=== PATIENT | male | born 1955 | race Caucasian/White ===

== ENCOUNTER 2016-04-29 17:28 | Emergency (ER) | payer MEDICAID ==
--- NOTE | 2016-04-29 18:15 | ER Document Report ---
ED Medical Screen (RME) - General Stated Complaint: SHORTNESS OF BREATH Notes: Patient is a 61-year-old male presents emergency department after being referred by his physician's office for a 12 pound weight gain over the past two days, shortness of breath and orthopnea and had to go sleep upright on the couch admits to worsening edema in his LLE, cough has been urinating more frequently today since he self increased his furosemide PMH: CHF, HTN, HLD, DM, stage 3 kidney disease 2015: RLE amputee from ankle fracture that became septic TRAVEL OUTSIDE OF THE [place] IN LAST 30 DAYS: No - Related Data Allergies/Adverse Reactions: meperidine HCl [From Demerol] Allergy (Unknown, Verified 03/03/16 14:39) n/v propoxyphene napsylate [From Darvocet-N 100] Allergy (Unknown, Verified 14:39) exenatide [From Byetta] Allergy (Verified 03/03/16 14:39) morphine [Morphine] Allergy (Verified 03/04/16 05:39) n/v Past Medical History - Past Medical History Cardiac Medical History: Reports: Hx Atrial Fibrillation, Hx Congestive Heart Failure, Hx Coronary Artery Disease, Hx Heart Attack, Hx Hypercholesterolemia, Hx Hypertension, Hx Peripheral Vascular Disease Pulmonary Medical History: Reports: Hx Respiratory Failure Denies: Hx Tuberculosis Neurological Medical History: Reports: Hx Cerebrovascular Accident Endocrine Medical History: Reports: 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 Denies: Hx Tonsillectomy - Immunizations Hx Diphtheria, Pertussis, Tetanus Vaccination: Yes
[2016-04-29 18:31] LABS: ABSOLUTE BASOPHILS # (AUTO) 0.1 10^3/uL (0.0-0.2); ABSOLUTE EOSINOPHILS # (AUTO) 0.4 10^3/uL (0.0-0.6); ABSOLUTE LYMPHOCYTES (AUTO) 1.6 10^3/uL (0.5-4.7); ABSOLUTE MONOCYTES (AUTO) 0.6 10^3/uL (0.1-1.4); ABSOLUTE NEUT (AUTO) 4.3 10^3/uL (1.7-8.2); BASOPHILS % (AUTO) 0.9 % (0-2); EOSINOPHILS % (AUTO) 6.4 % (0-6); HEMATOCRIT 41.7 % (37.9-51.0); HEMOGLOBIN 13.1 g/dL (13.5-17.0); HGB HCT DIFFERENCE -2.4; LYMPHOCYTES % (AUTO) 22.7 % (13-45); MEAN CORPUSCULAR HEMOGLOBIN 25.6 pg (27.0-33.4); MEAN CORPUSCULAR HGB CONC 31.5 g/dL (32.0-36.0); MEAN CORPUSCULAR VOLUME 81 fl (80-97); MONOCYTES % (AUTO) 8.1 % (3-13); RED BLOOD COUNT 5.14 10^6/uL (4.35-5.55); RED CELL DISTRIBUTION WIDTH 15.7 % (11.5-14.0); SEGMENTED NEUTROPHILS % (AUTO) 61.9 % (42-78); WHITE BLOOD COUNT 6.9 10^3/uL (4.0-10.5)
[2016-04-29 18:49] LABS: ALANINE AMINOTRANSFERASE 38 U/L (21-72); ALBUMIN 3.8 g/dL (3.5-5.0); ALKALINE PHOSPHATASE 123 U/L (38-126); ANION GAP 12 (5-19); ASPARTATE AMINO TRANSFERASE 35 U/L (17-59); BILIRUBIN,TOTAL 0.4 mg/dL (0.2-1.3); BLOOD UREA NITROGEN 29 mg/dL (7-20); CALCIUM 9.1 mg/dL (8.4-10.2); CARBON DIOXIDE 29 mmol/L (22-30); CHLORIDE 106 mmol/L (98-107); CREATINE KINASE 271 U/L (55-170); CREATININE RESULT 1.44 mg/dL (0.52-1.25); GLUCOSE 154 mg/dL (75-110); POTASSIUM 4.6 mmol/L (3.6-5.0); SODIUM 147.1 mmol/L (137-145); TOTAL PROTEIN 6.5 g/dL (6.3-8.2)
[2016-04-29 19:01] LABS: CREATINE KINASE MB 3.96 ng/mL (<4.55)
[2016-04-29 19:12] LABS: TROPONIN I 0.06 ng/mL
[2016-04-29] MEDS ORDERED: IPRATROPIUM/ALBUTEROL 0.5-2.5 MG/3 ML AMPUL NEB ONE (20:18)
--- NOTE | 2016-04-29 20:20 | ER Document Report ---
ED Respiratory Problem - General Chief Complaint: Shortness Of Breath Stated Complaint: SHORTNESS OF BREATH Time seen by provider: 20:15 Notes: Patient is a 61-year-old male that comes emergency department with chief complaint of shortness of breath, worsening since yesterday, he states that he has a cough with white sputum production, denies any chills, he states that he has congestive heart failure and has gained about 12 pounds in the past 4 days, states that he started increasing his Lasix yesterday, states he has difficulty lying flat. Patient states that he has episodes during the day where he feels like he is wheezing and has difficulty breathing, states this resolved shortly after he feels fine for a while before it returns. Patient denies any chest pain. Patient is a former smoker, denies COPD or asthma. Patient has multiple comorbidities including coronary artery disease, atrial fibrillation, insulin dependent diabetes, chronic kidney disease. TRAVEL OUTSIDE OF THE [place] IN LAST 30 DAYS: No - Related Data Allergies/Adverse Reactions: meperidine HCl [From Demerol] Allergy (Unknown, Verified 04/29/16 18:10) n/v propoxyphene napsylate [From Darvocet-N 100] Allergy (Unknown, Verified 18:10) exenatide [From Byetta] Allergy (Verified 04/29/16 18:10) morphine [Morphine] Allergy (Verified 04/29/16 18:10) n/v Home Medications: Current Home Medications Apixaban [Eliquis 2.5 mg Tablet] 1 tab PO BID 04/29/16 [History] Carvedilol [Coreg 6.25 mg Tablet] 1 tab PO Q12 04/29/16 [History] Clopidogrel Bisulfate [Clopidogrel] 1 tab PO DAILY 04/29/16 [History] Furosemide [Lasix 20 mg Tablet] 2 tab PO QAM 04/29/16 [History] Insulin Glargine,Hum.rec.anlog [Lantus] 40 unit SQ QPM 04/29/16 [History] Potassium Chloride 1 tab PO DAILY 04/29/16 [History] Past Medical History - General Information source: Patient - Social History Smoking Status: Former Smoker Chew tobacco use (# tins/day): No Frequency of alcohol use: None Drug Abuse: None Lives with: Alone Family History: CAD, Other - Patient did not know his father and does not know his mother's history either. 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 Denies: Hx Peritoneal Dialysis GI Medical History: Reports: Hx Gastroesophageal Reflux Disease Musculoskeltal Medical History: Reports Hx Arthritis Psychiatric Medical History: Reports: Hx Depression Past Surgical History: Reports: Hx Cardiac Catheterization, Hx Cardiac Surgery - quad bypass, Hx Cholecystectomy, Hx Coronary Artery Bypass Graft - 4 vessel, Hx Coronary Stent, Hx Orthopedic Surgery - R shoulder; R AKA; L elbow. Denies: Hx Tonsillectomy - Immunizations Hx Diphtheria, Pertussis, Tetanus Vaccination: Yes Hx Pneumococcal Vaccination: 12/17/10 Review of Systems - Review of Systems Constitutional: No symptoms reported EENT: No symptoms reported Cardiovascular: No symptoms reported Respiratory: See HPI Gastrointestinal: No symptoms reported Genitourinary: No symptoms reported Male Genitourinary: No symptoms reported Musculoskeletal: No symptoms reported Skin: No symptoms reported Hematologic/Lymphatic: No symptoms reported Neurological/Psychological: No symptoms reported Physical Exam - Vital signs Vitals: Temp Pulse Resp BP Pulse Ox 98.7 F 73 16 151/62 H 95 04/29/16 18:10 04/29/16 18:10 04/29/16 18:10 04/29/16 18:10 04/29/16 18:10 Interpretation: Normal - General General appearance: Appears well, Alert In distress: None - HEENT Head: Normocephalic, Atraumatic Eyes: Normal Eyelashes: Normal Pupils: PERRL Mouth/Lips: Normal Mucous membranes: Normal Pharynx: Normal. No: Blood in hypopharynx, Erythema Neck: Normal - Respiratory Respiratory status: Tachypnea - slight. No: Respiratory distress Chest status: Nontender Breath sounds: Decreased air movement, Wheezing - expiratory. No: Rales Chest palpation: Normal - Cardiovascular Rhythm: Regular. No: Irregularly irregular, Tachycardia Heart sounds: Normal auscultation, S1 appreciated, S2 appreciated Murmur: No - Abdominal Inspection: Normal Distension: No distension. No: Distended Bowel sounds: Normal Tenderness: Nontender. No: Tender Organomegaly: No organomegaly - Back Back: Normal, Nontender - Extremities General upper extremity: Normal inspection, Normal strength General lower extremity: Other - Right AKA noted, left lower extremity examination is unremarkable, no significant or pitting edema noted - Neurological Neuro grossly intact: Yes Cognition: Normal Orientation: AAOx4 An Coma Scale Eye Opening: Spontaneous [place] Coma Scale Verbal: Oriented [place] Coma Scale Motor: Obeys Commands An Coma Scale Total: 15 Speech: Normal Motor strength normal: LUE, RUE, LLE, RLE Sensory: Normal - Psychological Associated symptoms: Normal affect, Normal mood - Skin Skin Temperature: Warm Skin Moisture: Dry Skin Color: Normal Course - Re-evaluation Re-evalutation: Troponin indeterminate at 0.06, previous troponins noted to be significantly higher, denying any chest pain. EKG shows sinus rhythm at a rate of 66, there are inverted T waves in the leads V4, V5, V6, lead 1, and aVL. There are no new changes noted compared to previous EKG, all these inversions were present previously. Chest x-ray does not show vascular congestion, pneumonia, or any acute findings. BNP is lower than previous. Chronic kidney disease noted and appears to be unchanged from previously. CBC unremarkable. On examination patient has slight expiratory wheeze, no rales, very slight tachypnea, no significant peripheral edema noted. On reexamination patient has had a breathing treatment, Lasix, Solu-Medrol, patient states he feels much better. Wheezing is gone, patient's mild tachypnea resolved. Patient is not hypoxic. Patient beginning to urinate. Patient states that he feels great, states that he does not want to be admitted to the hospital and at this point he wants to go home. He does agree to follow- up closely with his primary care provider and return if he worsens in any way. Because of lack of acute abnormality compared to prior, patient's improvement, and patient being very well-appearing with unremarkable vital signs, patient discharged with these recommendations. Patient states that he will check his blood glucose frequently and adjust as necessary for the prednisone which he will be placed on because of his cough and wheezing symptoms. - Vital Signs Vital signs: Temp Pulse Resp BP Pulse Ox 98.7 F 79 22 H 137/82 H 95 04/29/16 18:10 04/29/16 19:16 04/29/16 22:00 04/29/16 22:22 04/29/16 22:00 - Laboratory Result Diagrams: 04/29/16 18:20 04/29/16 18:20 Laboratory results interpreted by me: 04/29/16 04/29/16 04/29/16 18:20 18:20 18:20 Hgb 13.1 L MCH 25.6 L MCHC 31.5 L RDW 15.7 H Eosinophils % 6.4 H Sodium 147.1 H BUN 29 H Creatinine 1.44 H Est GFR (Non-Af Amer) 50 L Glucose 154 H Creatine Kinase 271 H NT-Pro-B Natriuret Pep 1770 H Discharge - Discharge Clinical Impression: Cough, Wheezing, Shortness of breath Condition: Stable Disposition: HOME, SELF-CARE Additional Instructions: Your laboratory workup does not indicate pneumonia or fluid overload. Resume her normal Lasix dose, take prednisone as prescribed, check her sugars and in increase your insulin if needed. Follow-up with your primary care within a week. Return to the ED for any concerning or worsening symptoms - returned or worsening shortness of breath, fevers, chest pain, etc. Prescriptions: Prednisone [Deltasone 10 mg Tablet] 10 mg PO ASDIR PRN #21 tablet PRN Reason: Referrals: GERMAIN RIDDLE [Primary Care Provider] - Follow up in 3-5 days
[2016-04-29] MEDS ORDERED: FUROSEMIDE INJ/PF 40 MG/4 ML SDV IV ONE (20:27)
[2016-04-29] MEDS ORDERED: METHYLPREDNISOLONE INJ 125 MG/2 ML SDV IV ONE (20:27)
[2016-04-29 22:22] VITALS: BP 137/82
--- NOTE | 2016-04-30 14:51 | EKG REPORT ---
SEVERITY:- ABNORMAL ECG - SINUS RHYTHM NONSPECIFIC INTRAVENTRICULAR CONDUCTION DELAY ABNRM R PROG, CONSIDER ASMI OR LEAD PLACEMENT : Confirmed by: Alvaro Gottlieb 30-Apr-2016 14:50:15
== END 2016-04-29 22:22 | disposition home or self-care (01) ==
LOC: ER 17:28
DX: R05 Cough (principal); R06.2 Wheezing; R06.02 Shortness of breath; Z79.899 Other long term (current) drug therapy; Z87.891 Personal history of nicotine dependence
CPT/HCPCS: 93005; 94640; 99285; 96374; 96375; 36415; 82553; 82550; 85025; 80053; 84484; 83880; 71020; 93010; J1940; J2930; J7620

== ENCOUNTER 2016-05-29 12:58 | Emergency (ER) | payer MEDICAID ==
--- NOTE | 2016-05-29 13:15 | ER Document Report ---
ED Respiratory Problem - General Chief Complaint: Shortness Of Breath Stated Complaint: SHORTNESS OF BREATH Notes: The patient is a 61-year-old male, past medical history CHF, CAD, diabetes, presents with 1 week of increasing shortness of breath, worse when he lays down , when he wakes up and when he exerts himself. He has had this in the past and says that IV Lasix usually helps his symptoms. He denies chest pain, leg swelling, nausea, vomiting, abdominal pain, back pain, cough, fevers or chills. TRAVEL OUTSIDE OF THE [place] IN LAST 30 DAYS: No - Related Data Allergies/Adverse Reactions: meperidine HCl [From Demerol] Allergy (Unknown, Verified 04/29/16 18:10) n/v propoxyphene napsylate [From Darvocet-N 100] Allergy (Unknown, Verified 18:10) exenatide [From Byetta] Allergy (Verified 04/29/16 18:10) morphine [Morphine] Allergy (Verified 04/29/16 18:10) n/v Past Medical History - General Information source: Patient - Social History Smoking Status: Former Smoker - Quit 20 years ago Family History: CAD, Other - Patient did not know his father and does not know his mother's history either. 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 Denies: Hx Peritoneal Dialysis GI Medical History: Reports: Hx Gastroesophageal Reflux Disease Musculoskeltal Medical History: Reports Hx Arthritis Psychiatric Medical History: Reports: Hx Depression Past Surgical History: Reports: Hx Cardiac Catheterization, Hx Cardiac Surgery - quad bypass, Hx Cholecystectomy, Hx Coronary Artery Bypass Graft - 4 vessel, Hx Coronary Stent, Hx Orthopedic Surgery - R shoulder; R AKA; L elbow. Denies: Hx Tonsillectomy - Immunizations Hx Diphtheria, Pertussis, Tetanus Vaccination: Yes Hx Pneumococcal Vaccination: 12/17/10 Review of Systems - Review of Systems Notes: REVIEW OF SYSTEMS: CONSTITUTIONAL: -fevers, -chills EENT: -eye pain, -difficulty swallowing, -nasal congestion CARDIOVASCULAR: -chest pain, -syncope. RESPIRATORY: -cough, +SOB GASTROINTESTINAL: -abdominal pain, - nausea, -vomiting, -diarrhea GENITOURINARY: -dysuria, -hematuria MUSCULOSKELETAL: -back pain, -neck pain SKIN: -rash or skin lesions. HEMATOLOGIC: -easy bruising or bleeding. LYMPHATIC: -swollen, enlarged glands. NEUROLOGICAL: -altered mental status or loss of consciousness, -headache, - neurologic symptoms PSYCHIATRIC: -anxiety, -depression. ALL OTHER SYSTEMS REVIEWED AND NEGATIVE. Physical Exam - Vital signs Vitals: BP Pulse Ox 163/78 H 100 05/29/16 13:07 05/29/16 13:07 - Notes Notes: PHYSICAL EXAMINATION: GENERAL: Well-appearing, well-nourished and in no acute distress. HEAD: Atraumatic, normocephalic. EYES: Pupils equal round and reactive to light, extraocular movements intact, sclera anicteric, conjunctiva are normal. ENT: nares patent, oropharynx clear without exudates. Moist mucous membranes. NECK: Normal range of motion, supple without lymphadenopathy LUNGS: Breath sounds clear to auscultation bilaterally and equal. No wheezes rales or rhonchi. HEART: Regular rate and rhythm without murmurs ABDOMEN: Soft, nontender, normoactive bowel sounds. No guarding, no rebound. No masses appreciated. EXTREMITIES: Right AKA. Normal range of motion, no pitting or edema. No cyanosis. NEUROLOGICAL: Cranial nerves grossly intact. Normal speech, normal gait. Normal sensory, motor, and reflex exams. PSYCH: Normal mood, normal affect. SKIN: Warm, Dry, normal turgor, no rashes or lesions noted. Course - Re-evaluation Re-evalutation: Patient with hyperkalemia most likely from his daily po potassium pills, but no EKG changes. Instructed patient to not continue his potassium until he is rechecked by his primary care physician. After Lasix and DuoNeb, patient's shortness of breath has resolved. Troponin and EKG do not show any acute ischemic changes. Chest x-ray does not show any evidence of pneumonia. Symptoms atypical for PE. Spoke to patient and offered admission, but patient would like to be discharged home now his symptoms have resolved. Will discharge home with albuterol as needed and instructions to stop his potassium pills until he is seen by his primary care physician this week. Given strict return precautions and he understands. - Vital Signs Vital signs: Temp Pulse Resp BP Pulse Ox 98.7 F 17 182/133 H 98 05/29/16 13:22 05/29/16 14:01 05/29/16 14:01 05/29/16 14:01 - Laboratory Result Diagrams: 05/29/16 13:15 05/29/16 13:15 Laboratory results interpreted by me: 05/29/16 05/29/16 05/29/16 13:15 13:15 13:15 MCH 26.4 L RDW 15.5 H Eosinophils % 6.2 H Potassium 6.0 H* BUN 32 H Creatinine 1.38 H Est GFR (Non-Af Amer) 52 L Glucose 365 H NT-Pro-B Natriuret Pep 1980 H - Diagnostic Test Radiology reviewed: Image reviewed, Reports reviewed Radiology results interpreted by me: CXR: NAD - EKG Interpretation by Me EKG shows normal: Sinus rhythm, [place], Intervals, QRS Complexes When compared to previous EKG there are: No significant change Additional EKG results interpreted by me: ST depressions in lateral leads. Discharge - Discharge Clinical Impression: Dyspnea on exertion Condition: Good Disposition: HOME, SELF-CARE Additional Instructions: Your chest x-ray does not show any evidence of pneumonia. Your shortness of breath improved after IV Lasix and a DuoNeb. Your potassium was slightly elevated today, so do not take your potassium pills until you see your primary care physician this week. Return immediately to the emergency room if you have worsening shortness of breath or any other concerns. You may try albuterol as needed to help with any shortness of breath. SHORTNESS OF BREATH OR DYSPNEA: You were evaluated for shortness of breath, or dyspnea. Dyspnea has many causes, and some are more serious than others. Sometimes it's impossible to diagnose the cause of dyspnea with the tests that are available on an emergency basis. Based on our evaluation today, you do not need hospitalization now. We found no evidence of pneumonia, collapsed lung, blood clots in the lung, tumors , or heart failure. Causes of non-specific dyspnea can include asthma or bronchospasm, hyperventilation, emotional distress, heart disease, emphysema, fibrosis of the lung, and stiffness of the chest wall. In healthy individuals with a single episode, it's sometimes reasonable to do nothing but wait to see if the problem occurs again. Additional tests used to evaluate dyspnea can include cardiac stress testing, echocardiography, pulmonary function testing, CAT scan of the chest, bronchoscopy or pulmonary biopsy. Return if shortness of breath persists or worsens, or if you develop chest pain, fever, cough, confusion, or fainting. NORMAL EXAM AND WORKUP: At this time, your examination and workup show no significant abnormality. No significant abnormal physical findings were noted. All laboratory, EKG, and imaging (x-ray, CT scans, ultrasound) studies that were ordered show no significant abnormality. Although your examination and all studies that were ordered showed no significant abnormal finding, there are no examinations and no studies that are 100% accurate. There is always the possibility that some abnormality could exist and not be detected with physical examination or within the limits and capabilities of laboratory and other studies. You should return or follow up as you were instructed on your visit today for further evaluation if your symptoms do not resolve. FOLLOW-UP CARE: If you have been referred to a physician for follow-up care, call the physician s office for an appointment as you were instructed or within the next two days. If you experience worsening or a significant change in your symptoms, notify the physician immediately or return to the Emergency Department at any time for re-evaluation. Prescriptions: Albuterol Sulfate [Proair HFA Inhalation Aerosol 8.5 gm MDI] 2 puff IH Q4H PRN # 1 mdi PRN Reason: Referrals: GERMAIN RIDDLE [Primary Care Provider] - Follow up as needed
[2016-05-29 13:40] LABS: ABSOLUTE EOSINOPHILS # (AUTO) 0.5 10^3/uL (0.0-0.6); ABSOLUTE LYMPHOCYTES (AUTO) 1.3 10^3/uL (0.5-4.7); ABSOLUTE MONOCYTES (AUTO) 0.6 10^3/uL (0.1-1.4); BASOPHILS % (AUTO) 0.5 % (0-2); EOSINOPHILS % (AUTO) 6.2 % (0-6); HEMATOCRIT 41.6 % (37.9-51.0); HEMOGLOBIN 13.7 g/dL (13.5-17.0); HGB HCT DIFFERENCE -0.5; LYMPHOCYTES % (AUTO) 17.4 % (13-45); MEAN CORPUSCULAR HEMOGLOBIN 26.4 pg (27.0-33.4); MEAN CORPUSCULAR VOLUME 80 fl (80-97); RED BLOOD COUNT 5.21 10^6/uL (4.35-5.55); RED CELL DISTRIBUTION WIDTH 15.5 % (11.5-14.0); SEGMENTED NEUTROPHILS % (AUTO) 67.9 % (42-78); WHITE BLOOD COUNT 7.3 10^3/uL (4.0-10.5)
[2016-05-29 13:59] LABS: ANION GAP 9 (5-19); BLOOD UREA NITROGEN 32 mg/dL (7-20); CALCIUM 9.6 mg/dL (8.4-10.2); CARBON DIOXIDE 30 mmol/L (22-30); CHLORIDE 102 mmol/L (98-107); CREATINE KINASE 155 U/L (55-170); CREATININE RESULT 1.38 mg/dL (0.52-1.25); GLUCOSE 365 mg/dL (75-110); SODIUM 140.7 mmol/L (137-145)
[2016-05-29] MEDS ORDERED: FUROSEMIDE INJ/PF 40 MG/4 ML SDV IV ONE (14:37)
[2016-05-29] MEDS ORDERED: IPRATROPIUM/ALBUTEROL 0.5-2.5 MG/3 ML AMPUL NEB ONE (14:37)
[2016-05-29 16:39] VITALS: BP 145/74
--- NOTE | 2016-05-29 19:27 | EKG REPORT ---
SEVERITY:- ABNORMAL ECG - SINUS RHYTHM CONSIDER ANTEROSEPTAL INFARCT ABNORMAL T, CONSIDER ISCHEMIA, LATERAL LEADS : Confirmed by: Avelino Murillo MD 29-May-2016 19:26:48
== END 2016-05-29 16:39 | disposition home or self-care (01) ==
LOC: ER 12:58
DX: R06.00 Dyspnea, unspecified (principal); R06.02 Shortness of breath; I50.9 Heart failure, unspecified; I25.10 Atherosclerotic heart disease of native coronary artery without angina pectoris; E11.9 Type 2 diabetes mellitus without complications
CPT/HCPCS: 93005; 94640; 99285; 96374; 36415; 82550; 85025; 80048; 83880; 71010; 93010; J1940; J7620

== ENCOUNTER 2016-10-27 17:36 | Inpatient (IN) | payer MEDICAID ==
--- NOTE | 2016-10-27 20:22 | ER Document Report ---
ED Medical Screen (RME) - General Chief Complaint: GI Bleeding Stated Complaint: RECTAL BLEEDING Time Seen by Provider: 10/27/16 20:12 Mode of Arrival: Wheelchair Information source: Patient TRAVEL OUTSIDE OF THE [place] IN LAST 30 DAYS: No - HPI Patient complains to provider of: Bright red blood per rectum Onset: This afternoon Onset/Duration: Sudden Severity: None Associated Symptoms: None Exacerbated by: Denies Relieved by: Denies Notes: 10/27/16 20:20 Patient is a 61-year-old male requests and Plavix. Patient noticed some bright red blood per rectum with bowel movement this afternoon. Patient had a second episode in the emergency department restroom. No prior history of GI bleeding. Patient was not straining to have a bowel movement. Patient denies any abdominal pain. - Related Data Allergies/Adverse Reactions: meperidine HCl [From Demerol] Allergy (Unknown, Verified 10/27/16 17:45) n/v propoxyphene napsylate [From Darvocet-N 100] Allergy (Unknown, Verified 17:45) exenatide [From Byetta] Allergy (Verified 10/27/16 17:45) morphine [Morphine] Allergy (Verified 10/27/16 17:45) n/v Past Medical History - General Information source: Patient, [facility] Records - Social History Cigarette use (# per day): No Chew tobacco use (# tins/day): No - Past Medical History Cardiac Medical History: Reports: Hx Atrial Fibrillation, Hx Congestive Heart Failure, Hx Coronary Artery Disease, Hx Heart Attack, Hx Hypercholesterolemia, Hx Hypertension, Hx Peripheral Vascular Disease Pulmonary Medical History: Reports: Hx Respiratory Failure Denies: Hx Tuberculosis Neurological Medical History: Reports: Hx Cerebrovascular Accident Endocrine Medical History: Reports: 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 Denies: Hx Peritoneal Dialysis GI Medical History: Reports: Hx Gastroesophageal Reflux Disease Musculoskeltal Medical History: Reports Hx Arthritis Psychiatric Medical History: Reports: Hx Depression Past Surgical History: Reports: Hx Cardiac Catheterization, Hx Cardiac Surgery - quad bypass, Hx Cholecystectomy, Hx Coronary Artery Bypass Graft - 4 vessel, Hx Coronary Stent, Hx Orthopedic Surgery - R shoulder; R AKA; L elbow. Denies: Hx Tonsillectomy - Immunizations Hx Diphtheria, Pertussis, Tetanus Vaccination: Yes Review of Systems - Review of Systems Gastrointestinal: Rectal bleeding -: Yes All other systems reviewed and negative Physical Exam - Vital signs Vitals: Temp Pulse Resp BP Pulse Ox 98.4 F 77 20 161/76 H 96 10/27/16 17:45 10/27/16 17:45 10/27/16 17:45 10/27/16 17:45 10/27/16 17:45 Interpretation: Normal - General General appearance: Appears well, Alert - HEENT Head: Normocephalic, Atraumatic Eyes: Normal Pupils: PERRL Mucous membranes: Moist - Respiratory Respiratory status: No respiratory distress Chest status: Nontender Breath sounds: Normal Chest palpation: Normal - Cardiovascular Rhythm: Regular Heart sounds: Normal auscultation Murmur: No - Abdominal Inspection: Normal Distension: No distension Bowel sounds: Normal Tenderness: Nontender Organomegaly: No organomegaly - Extremities General upper extremity: Normal inspection General lower extremity: Other - Right AKA - Neurological Neuro grossly intact: Yes Cognition: Normal Orientation: AAOx4 An Coma Scale Eye Opening: Spontaneous An Coma Scale Verbal: Oriented An Coma Scale Motor: Obeys Commands An Coma Scale Total: 15 Speech: Normal Motor strength normal: LUE, RUE, LLE, RLE Sensory: Normal - Skin Skin Temperature: Warm Skin Moisture: Dry Skin Color: Normal Course - Re-evaluation Re-evalutation: 10/27/16 20:21 Patient will require reassessment and reevaluation in the main treatment area as a rectal exam cannot be performed in this region. Further disposition will be per ED physician in the treatment area. - Vital Signs Vital signs: Temp Pulse Resp BP Pulse Ox 98.4 F 77 20 161/76 H 96 10/27/16 17:45 10/27/16 17:45 10/27/16 17:45 10/27/16 17:45 10/27/16 17:45
[2016-10-27 20:44] LABS: ABSOLUTE BASOPHILS # (AUTO) 0.1 10^3/uL (0.0-0.2); ABSOLUTE EOSINOPHILS # (AUTO) 0.3 10^3/uL (0.0-0.6); ABSOLUTE LYMPHOCYTES (AUTO) 1.8 10^3/uL (0.5-4.7); ABSOLUTE MONOCYTES (AUTO) 0.9 10^3/uL (0.1-1.4); ABSOLUTE NEUT (AUTO) 6.8 10^3/uL (1.7-8.2); BASOPHILS % (AUTO) 0.7 % (0-2); EOSINOPHILS % (AUTO) 3.1 % (0-6); HEMATOCRIT 41.8 % (37.9-51.0); HEMOGLOBIN 13.5 g/dL (13.5-17.0); HGB HCT DIFFERENCE -1.3; LYMPHOCYTES % (AUTO) 18.5 % (13-45); MEAN CORPUSCULAR HEMOGLOBIN 26.1 pg (27.0-33.4); MEAN CORPUSCULAR HGB CONC 32.2 g/dL (32.0-36.0); MEAN CORPUSCULAR VOLUME 81 fl (80-97); RED BLOOD COUNT 5.16 10^6/uL (4.35-5.55); RED CELL DISTRIBUTION WIDTH 15.4 % (11.5-14.0); SEGMENTED NEUTROPHILS % (AUTO) 68.7 % (42-78); WHITE BLOOD COUNT 9.9 10^3/uL (4.0-10.5)
[2016-10-27 20:51] LABS: PROTHROMBIN TIME 14.1 SEC (11.4-15.4)
[2016-10-27 21:03] LABS: ALANINE AMINOTRANSFERASE 36 U/L (21-72); ALBUMIN 4.3 g/dL (3.5-5.0); ALKALINE PHOSPHATASE 121 U/L (38-126); ANION GAP 12 (5-19); ASPARTATE AMINO TRANSFERASE 33 U/L (17-59); BILIRUBIN,DIRECT 0.3 mg/dL (0.0-0.4); BILIRUBIN,TOTAL 0.7 mg/dL (0.2-1.3); BLOOD UREA NITROGEN 39 mg/dL (7-20); CALCIUM 9.6 mg/dL (8.4-10.2); CARBON DIOXIDE 26 mmol/L (22-30); CHLORIDE 104 mmol/L (98-107); CREATININE RESULT 1.51 mg/dL (0.52-1.25); GLUCOSE 183 mg/dL (75-110); POTASSIUM 4.3 mmol/L (3.6-5.0); SODIUM 141.8 mmol/L (137-145); TOTAL PROTEIN 7.3 g/dL (6.3-8.2)
--- NOTE | 2016-10-27 21:03 | ER Document Report ---
ED GI Bleed / Rectal Pain - General Chief Complaint: GI Bleeding Stated Complaint: RECTAL BLEEDING Time Seen by Provider: 10/27/16 20:12 Mode of Arrival: Wheelchair Notes: Patient is a 61-year-old male that comes emergency department for chief complaint of bloody bowel movements, he has had 2 bloody bowel movements now and he also some blood on his shorts. Symptoms started this evening. He denies any abdominal pain, fever, nausea, vomiting. He is on both Plavix and Eliquis because of history of CVA, A. fib, and MD with CABG. he denies any dizziness or chest pain. He denies history of GI bleed, he had a normal colonoscopy years ago. TRAVEL OUTSIDE OF THE [place] IN LAST 30 DAYS: No - Related Data Allergies/Adverse Reactions: meperidine HCl [From Demerol] Allergy (Unknown, Verified 10/27/16 17:45) n/v propoxyphene napsylate [From Darvocet-N 100] Allergy (Unknown, Verified 17:45) exenatide [From Byetta] Allergy (Verified 10/27/16 17:45) morphine [Morphine] Allergy (Verified 10/27/16 17:45) n/v Past Medical History - General Information source: Patient, [facility] Records - Social History Smoking Status: Never Smoker Cigarette use (# per day): No Chew tobacco use (# tins/day): No Frequency of alcohol use: None Drug Abuse: None Lives with: Family Family History: CAD, Other - Patient did not know his father and does not know his mother's history either. 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 Denies: Hx Peritoneal Dialysis GI Medical History: Reports: Hx Gastroesophageal Reflux Disease Musculoskeltal Medical History: Reports Hx Arthritis Psychiatric Medical History: Reports: Hx Depression Past Surgical History: Reports: Hx Cardiac Catheterization, Hx Cardiac Surgery - quad bypass, Hx Cholecystectomy, Hx Coronary Artery Bypass Graft - 4 vessel, Hx Coronary Stent, Hx Orthopedic Surgery - R shoulder; R AKA; L elbow. Denies: Hx Tonsillectomy - Immunizations Hx Diphtheria, Pertussis, Tetanus Vaccination: Yes Hx Pneumococcal Vaccination: 12/17/10 Review of Systems - Review of Systems Constitutional: No symptoms reported EENT: No symptoms reported Cardiovascular: See HPI Respiratory: No symptoms reported Gastrointestinal: See HPI Genitourinary: No symptoms reported Male Genitourinary: No symptoms reported Musculoskeletal: No symptoms reported Skin: No symptoms reported Hematologic/Lymphatic: No symptoms reported Neurological/Psychological: No symptoms reported Physical Exam - Vital signs Vitals: Temp Pulse Resp BP Pulse Ox 98.4 F 77 20 161/76 H 96 10/27/16 17:45 10/27/16 17:45 10/27/16 17:45 10/27/16 17:45 10/27/16 17:45 Interpretation: Normal - General General appearance: Appears well, Alert In distress: None - HEENT Head: Normocephalic, Atraumatic Eyes: Normal Pupils: PERRL - Respiratory Respiratory status: No respiratory distress Chest status: Nontender Breath sounds: Normal. No: Decreased air movement, Wheezing Chest palpation: Normal - Cardiovascular Rhythm: Regular Heart sounds: Normal auscultation Murmur: No - Abdominal Inspection: Normal Distension: No distension Bowel sounds: Normal Tenderness: Nontender Organomegaly: No organomegaly - Rectal Stool: Heme positive, Bloody. No: Black Hemorrhoids: No: Internal, External, Anal fissure, Mass - Back Back: Normal, Nontender. No: Tender - Extremities General upper extremity: Normal inspection, Nontender, Normal color, Normal ROM , Normal temperature General lower extremity: Mojgan's sign - Right lower extremity amputation - Neurological Neuro grossly intact: Yes Cognition: Normal Orientation: AAOx4 Mcdonald Coma Scale Eye Opening: Spontaneous Mcdonald Coma Scale Verbal: Oriented An Coma Scale Motor: Obeys Commands Mcdonald Coma Scale Total: 15 Speech: Normal Motor strength normal: LUE, RUE, LLE, RLE Sensory: Normal - Psychological Associated symptoms: Normal affect, Normal mood - Skin Skin Temperature: Warm Skin Moisture: Dry Skin Color: Normal Course - Re-evaluation Re-evalutation: Patient has a soft abdomen, he is nontoxic in appearance, however I did perform a rectal examination and I did note bright red blood per rectum. He also has blood on his underwear. This was mixed in with stool, he is not currently hemorrhaging. Concerned because of patient's Eliquis and Plavix use. Patient is not hypotensive, tachycardic. Initial CBC does not show any concerning anemia or evidence yet of acute blood loss although he did just start bleeding. Patient will be typed and screened. Patient was discussed with Dr. Sprague. Called and spoke with Dr. Kohler, recommends discussion with Dr. Centeno, gastroenterology. 10/27/16 22:[address] Centeno, he recommends that patient have his Eliquis and Plavix held and that he will plan to perform a colonoscopy on the patient. Discussed with Dr. Kohler again, he states that he will come evaluate the patient for potential admission to the [facility]. - Vital Signs Vital signs: Temp Pulse Resp BP Pulse Ox 97.9 F 71 16 166/57 H 99 10/28/16 04:00 10/28/16 04:00 10/28/16 04:00 10/28/16 04:00 10/28/16 04:00 - Laboratory Result Diagrams: 10/28/16 03:40 10/27/16 20:30 Laboratory results interpreted by me: 10/27/16 10/27/16 10/27/16 20:30 20:30 22:02 WBC Hgb MCH 26.1 L RDW 15.4 H BUN 39 H Creatinine 1.51 H Est GFR ( Amer) 57 L Est GFR (Non-Af Amer) 47 L Glucose 183 H POC Glucose 125 H 10/27/16 23:29 WBC 10.8 H Hgb 12.9 L MCH 26.2 L RDW 15.8 H BUN Creatinine Est GFR ( Amer) Est GFR (Non-Af Amer) Glucose POC Glucose Discharge - Discharge Clinical Impression: Lower gastrointestinal hemorrhage Condition: Stable Disposition: ADMITTED INPATIENT Admitting Provider: Hospitalist Unit Admitted: [facility]
[2016-10-27 23:34] LABS: HEMATOCRIT 39.8 % (37.9-51.0); HEMOGLOBIN 12.9 g/dL (13.5-17.0); HGB HCT DIFFERENCE -1.1; MEAN CORPUSCULAR HEMOGLOBIN 26.2 pg (27.0-33.4); MEAN CORPUSCULAR HGB CONC 32.4 g/dL (32.0-36.0); MEAN CORPUSCULAR VOLUME 81 fl (80-97); RED BLOOD COUNT 4.93 10^6/uL (4.35-5.55); RED CELL DISTRIBUTION WIDTH 15.8 % (11.5-14.0); WHITE BLOOD COUNT 10.8 10^3/uL (4.0-10.5)
[2016-10-28] MEDS ORDERED: DEXTROSE 50%-WATER 25 GM/50 ML DISP.SYRIN IV PRN ×2 (00:33)
[2016-10-28] MEDS ORDERED: INSULIN LISPRO 100 UNIT/ML 3 ML VIAL SUBCUT PRN (00:33)
[2016-10-28] MEDS ORDERED: DEXTROSE 40% GEL 15 GM TUBE PO PRN ×2 (00:33)
[2016-10-28] MEDS ORDERED: GLUCAGON,HUMAN RECOMB 1 MG INJ IM PRN (00:33)
[2016-10-28] MEDS ORDERED: ACETAMINOPHEN 325 MG TABLET PO PRN (00:36)
[2016-10-28] MEDS ORDERED: PROMETHAZINE HCL 25 MG TABLET PO PRN (00:37)
--- NOTE | 2016-10-28 00:53 | PDOC H&P ---
History of Present Illness Admission Date/PCP: 10/27/16 [address]per, [facility], " " History of Present Illness: LULU PATEL is a 61 year old male with underlying hyperlipidemia, insulin-dependent diabetes mellitus, diffuse vascular disease, having suffered prior stroke, without residual aftereffects, coronary artery disease, and peripheral vascular disease, status post right above-knee amputation, along with underlying atrial fibrillation, on Eliquis for same, also on Plavix, who presents to the emergency room for evaluation of onset of bright red rectal bleeding at 4 PM the day of admission during a bowel movement. Patient has been discussed with emergency room nurse practitioner who evaluated the patient. Has had 2 subsequent much smaller episodes of bright red rectal bleeding since then. States the first episode was a "big" amount. Last episode was just prior to my seeing him in the emergency room just before midnight of the . No prior such episodes. No history of hemorrhoidal problems. No history of peptic ulcer disease. Distant history of an unremarkable colonoscopy. No chest or abdominal pain. No lightheadedness or syncope. Last dose of Eliquis was 8 AM on the , with Plavix at the same time. Currently resting quietly, without specific complaints. Has remained hemodynamically stable. Laboratory results are listed in [facility] and are reviewed. X-ray summary results are listed below, with full report(s) reviewed. . Social history/personal habits: Single. No children. Unemployed. Former smoker. No use of alcohol or illicit drugs. Allergies/adverse reactions are listed in [facility] and are reviewed. Home medications initially autopopulated into [employer] may not accurately reflect patient's true medications, dosages, and/or frequencies. electronics technician to reconcile medications. Unfortunately, patient not certain of all medications/dosages/frequencies. REVIEW OF SYSTEMS: Constitutional: No fever or chills. Eyes: Wears glasses. ENT: No swallowing problems or complaints. Denies hearing loss. Pulmonary: No current complaints. Cardiovascular: No current complaints, including chest pain. Gastrointestinal: See history and present illness. Skin: No current complaints, including rashes. Hematologic: Easy bruising. Neurologic: No current complaints, including numbness or tingling. Musculoskeletal: Joint pain from arthritis. Psychiatric: Rare mild depression. Denies suicidal or homicidal ideation. Endocrine: No current complaints, including polyuria. Genitourinary: No current complaints, including dysuria. PHYSICAL EXAMINATION: 5 feet 11 inches tall. 99.8 kg. BMI 30.7 kg/m. Blood pressure 145/48. Pulse 60 and regular. 97% saturation on room air. Respirations are 16 and unlabored. Temperature 98.4. Obese otherwise well-developed though somewhat chronically ill-appearing male who appears perhaps a bit older than his stated age. Pleasant awake alert and cooperative. No obvious distress other than mildly anxious. No agitation. Skin is warm and dry. No grossly obvious evidence of rash in areas of skin examined. No subcutaneous nodules palpated. ENT: Hearing grossly normal to normal conversation. Tongue midline on protrusion pink and slightly tacky. Eyes: No scleral icterus. Pupils equal and reactive to light at 4 mm. [place] conjunctivae. Neck is supple and nontender to gentle active range of motion and palpation. Midline trachea. No palpable thyroid nodule mass enlargement or tenderness. Lymphatic: No palpable cervical or clavicular nodes. Neck and lymphatic exams limited by patient body habitus. Psychiatric: Reasonable insight into acute and chronic medical issues. Oriented to time location and why here. Lungs: Auscultation reveals clear and equal breath sounds bilaterally. No use of accessory respiratory muscles. Cardiovascular: Heart regular rate and rhythm, without gallop murmur or rub. No carotid or abdominal aortic bruits. No left ankle or pedal edema. Faintly palpable dorsalis pedis pulse. Abdomen:soft somewhat obese nontender with positive bowel sounds. Unable to adequately evaluate abdomen for masses or organomegaly due to body habitus. Examination of perianal region and anus reveals no evidence of blood, no evidence of hemorrhoids. Digital rectal exam fails to reveal any evidence of blood or stool. Extremities: Left foot warm and dry. No left calf tenderness to compression. No grossly obvious visual evidence of left calf swelling. Gentle manipulation of left lower extremity fails to reveal any obvious evidence of injury or instability to knee hip or ankle. Nicely healed right above-knee amputation stump. Neurologic: Moves upper extremities grossly normally. Patellar reflex absent. Absent Babinski. Light touch is intact at foot. Dorsiflexion and plantarflexion of foot 5/5. Past Medical History Cardiac Medical History: Reports: Atrial Fibrillation, Congestive Heart Failure , Coronary Artery Disease, Myocardial Infarction, Hyperlipidema, Hypertension, Peripheral Vascular Disease Denies: Pulmonary Embolism Pulmonary Medical History: Reports: Respiratory Failure Denies: Asthma, Chronic Obstructive Pulmonary Disease (COPD), Sleep Apnea, Tuberculosis EENT Medical History: Reports: Eyes - Glasses Denies: Ears, Throat Neurological Medical History: Reports: Ischemic CVA - Last episode 2009, without residual after effects. Denies: Hemorrhagic CVA, Seizures Endocrine Medical History: Denies: Diabetes Mellitus Type 1, Hyperthyroidism, Hypothyroidism Renal/ Medical History: Reports: Chronic Kidney Disease GI Medical History: Reports: Gastroesophageal Reflux Disease Denies: Cirrhosis, Hepatitis, Peptic Ulcer Disease Musculoskeltal Medical History: Reports: Arthritis Skin Medical History: Reports: None Psychiatric Medical History: Reports: Depression - Mild and infrequent; denies suicidal or homicidal ideation. Denies: Alcohol Dependency, General Anxiety Disorder, Substance Abuse, Tobacco Dependency Hematology: Reports: Other - Easy bruising Infectious Medical History: Denies: Clostridium Difficile, Hepatitis B, Hepatitis C, Methicillin- Resistant Staph Aureus Past Surgical History Past Surgical History: Reports: Cardiac Catheterization, Cholecystectomy, Coronary Artery Bypass Graft - 4 vessel, Coronary Stent, Orthopedic Surgery - R shoulder; R AKA; L elbow Social History Information Source: Patient, Emergency Med Personnel, [facility] Records Smoking Status: Former Smoker Frequency of Alcohol Use: None Hx Recreational Drug Use: No Drugs: None Hx Prescription Drug Abuse: No - Advance Directive Resuscitation Status: Full Code Surrogate healthcare decision maker:: Friend Casie Echevarria Family History Family History: CAD Parental Family History Reviewed: Yes - Mother in her sleep; father of uncertain cause. Children Family History Reviewed: NA Sibling(s) Family History Reviewed.: Yes - Sister with "female cancer" Medication/Allergy Home Medications: Atorvastatin Calcium [Lipitor 80 mg Tablet] 80 mg PO QHS 10/28/16 Carvedilol [Coreg 6.25 mg Tablet] 6.25 mg PO Q12 10/28/16 Furosemide [Lasix] 40 mg PO Q12 10/28/16 Insulin Aspart [Novolog Flexpen] 20 unit SUBCUT AC 10/28/16 Insulin Glargine,Hum.rec.anlog [Lantus] 50 unit SQ QAM 10/28/16 Insulin Glargine,Hum.rec.anlog [Lantus] 50 unit SQ QPM 10/28/16 Omeprazole 20 mg PO DAILY 10/28/16 Oxycodone HCl/Acetaminophen [Percocet 10-325 mg Tablet] 1 each PO Q6HP PRN 10/28 Valsartan [Diovan] 160 mg PO DAILY 10/28/16 Clopidogrel Bisulfate [Plavix 75 mg Tablet] 75 mg PO DAILY #30 tablet 10/29/16 Allergies/Adverse Reactions: meperidine HCl [From Demerol] Allergy (Unknown, Verified 10/27/16 17:45) n/v propoxyphene napsylate [From Darvocet-N 100] Allergy (Unknown, Verified 17:45) exenatide [From Byetta] Allergy (Verified 10/27/16 17:45) morphine [Morphine] Allergy (Verified 10/27/16 17:45) n/v Physical Exam Vital Signs: Temp Pulse Resp BP Pulse Ox 98.4 F 77 16 161/76 H 96 10/27/16 17:45 10/27/16 17:45 10/27/16 21:15 10/27/16 17:45 10/27/16 21:15 Intake & Output 10/26/16 10/27/16 10/28/16 00:59 00:59 00:59 Weight 99.79 kg Results Laboratory Results: 10/27/16 23:29 10/27/16 20:30 10/27/16 10/27/16 10/27/16 20:30 20:30 21:00 WBC 9.9 RBC 5.16 Hgb 13.5 Hct 41.8 MCV 81 MCH 26.1 L MCHC 32.2 RDW 15.4 H Plt Count 243 Seg Neutrophils % 68.7 Lymphocytes % 18.5 Monocytes % 9.0 Eosinophils % 3.1 Basophils % 0.7 Absolute Neutrophils 6.8 Absolute Lymphocytes 1.8 Absolute Monocytes 0.9 Absolute Eosinophils 0.3 Absolute Basophils 0.1 Sodium 141.8 Potassium 4.3 Chloride 104 Carbon Dioxide 26 Anion Gap 12 BUN 39 H Creatinine 1.51 H Est GFR ( Amer) 57 L Est GFR (Non-Af Amer) 47 L Glucose 183 H Calcium 9.6 Total Bilirubin 0.7 AST 33 ALT 36 Alkaline Phosphatase 121 Total Protein 7.3 Albumin 4.3 Stool Occult Blood POSITIVE Blood Type Antibody Screen 10/27/16 10/27/16 21:24 23:29 WBC 10.8 H RBC 4.93 Hgb 12.9 L Hct 39.8 MCV 81 MCH 26.2 L MCHC 32.4 RDW 15.8 H Plt Count 242 Seg Neutrophils % Lymphocytes % Monocytes % Eosinophils % Basophils % Absolute Neutrophils Absolute Lymphocytes Absolute Monocytes Absolute Eosinophils Absolute Basophils Sodium Potassium Chloride Carbon Dioxide Anion Gap BUN Creatinine Est GFR ( Amer) Est GFR (Non-Af Amer) Glucose Calcium Total Bilirubin AST ALT Alkaline Phosphatase Total Protein Albumin Stool Occult Blood Blood Type O POSITIVE Antibody Screen NEGATIVE Assessment & Plan - Diagnosis (1) Rectal bleeding Is this a current diagnosis for this admission?: YesPlan: Fortunately appears to be minor at the present time. Hemodynamically stable. Serial hemoglobin and hematocrit. Ice chips only. We will obviously hold Eliquis and Plavix, per recommendation of Dr. Centeno, on-call tax services intern , who has agreed to see patient in consultation. Transfuse as needed. No need at present. Patient understands the risks associated with blood product transfusion to include, but not be limited to, transfusion reaction, which can be fatal, along with hepatitis and/or HIV viruses. Discussed in lay person's terms. Patient agrees to undergo transfusion of blood products if felt necessary. Permit signed and on chart. I have strongly encouraged patient not to get out of bed without notifying staff , to avoid a fall with injury. Knee high SCDs for DVT prophylaxis. Impression and plans were discussed with patient who concurs. Time spent in evaluation and management of patient: 90 minutes. (2) Atrial fibrillation Qualifiers: Atrial fibrillation type: unspecified Qualified Code(s): I48.91 - Unspecified atrial fibrillation Is this a current diagnosis for this admission?: YesPlan: Resume home medications as appropriate once these have been determined and reviewed. (3) Hyperlipidemia Qualifiers: Hyperlipidemia type: unspecified Qualified Code(s): E78.5 - Hyperlipidemia, unspecified Is this a current diagnosis for this admission?: YesPlan: Resume home medications as appropriate once these have been determined and reviewed. (4) Hypertension Qualifiers: Hypertension type: essential hypertension Qualified Code(s): I10 - Essential (primary) hypertension Is this a current diagnosis for this admission?: YesPlan: Resume home medications as appropriate once these have been determined and reviewed. (5) test developer current use of anticoagulant therapy Is this a current diagnosis for this admission?: Yes (6) Type I diabetes mellitus Qualifiers: Diabetes mellitus complication status: with circulatory complication Diabetes mellitus complication detail: with other circulatory complications Qualified Code(s): E10.59 - Type 1 diabetes mellitus with other circulatory complications Is this a current diagnosis for this admission?: YesPlan: Accu-Cheks with appropriate sliding scale coverage. Resume home medications as appropriate once these have been determined and reviewed. - Inpatient Certification Based on my medical assessment, after consideration of the patient's comorbidities, presenting symptoms, or acuity I expect that the services needed warrant INPATIENT care.: Yes I certify that my determination is in accordance with my understanding of Medicare's requirements for reasonable and necessary INPATIENT services [42 CFR 412.3e].: Yes Medical Necessity: Need For IV Fluids, Need For Continuous Telemetry Monitoring , Risk of Complication if Not Cared For in Hospital, Risk of Diagnosis Which Will Require Inpatient Eval/Care/Monitoring Post Hospital Care: D/C or Transfer Summary
[2016-10-28] MEDS ORDERED: FAMOTIDINE INJ/PF 20 MG/2 ML SDV IV ONE (01:30)
[2016-10-28] MEDS: NORMAL SALINE 1000 ML 1,000 ML IV PRN ×2 (02:18→20:13)
[2016-10-28 04:09] LABS: HEMATOCRIT 41.3 % (37.9-51.0); HEMOGLOBIN 13.2 g/dL (13.5-17.0); HGB HCT DIFFERENCE -1.7; MEAN CORPUSCULAR HEMOGLOBIN 25.8 pg (27.0-33.4); MEAN CORPUSCULAR HGB CONC 31.9 g/dL (32.0-36.0); MEAN CORPUSCULAR VOLUME 81 fl (80-97); RED CELL DISTRIBUTION WIDTH 15.5 % (11.5-14.0); WHITE BLOOD COUNT 9.2 10^3/uL (4.0-10.5)
--- NOTE | 2016-10-28 07:27 | PDOC CONSULTATION ---
Consultation Consult Date: 10/28/16 Attending physician:: MADDIE OROZCO Consult reason:: Rectal bleeding History of Present Illness Admission Date/PCP: 10/28/16 00:31 History of Present Illness: I was asked to see this patient by the hospitalist service following admission thru the ED patient had reported some rectal bleeding on presentation was hemodynamically stable patient's H/H is stable as well however patient is on anticoagulant therapy apparently had colonoscopy several years ago , was told that he had hemorrhoids denies any melena there is no nausea or vomiting denies any abdominal pain, patient does report several episodes previous history of vascular disease as well on Plavix as well as Eliquis Past Medical History Cardiac Medical History: Reports: Atrial Fibrillation, Congestive Heart Failure , Coronary Artery Disease, Myocardial Infarction, Hyperlipidema, Hypertension, Peripheral Vascular Disease Denies: Pulmonary Embolism Pulmonary Medical History: Reports: Respiratory Failure Denies: Asthma, Chronic Obstructive Pulmonary Disease (COPD), Sleep Apnea, Tuberculosis EENT Medical History: Reports: Eyes - Glasses, Other - Easy bruising Denies: Ears, Throat Neurological Medical History: Reports: Ischemic CVA - Last episode 2009, without residual after effects. 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 Denies: Diabetes Mellitus Type 1, Hyperthyroidism, Hypothyroidism Renal/ Medical History: Reports: Chronic Kidney Disease GI Medical History: Reports: Gastroesophageal Reflux Disease Denies: Cirrhosis, Hepatitis, Peptic Ulcer Disease Musculoskeltal Medical History: Reports: Arthritis Skin Medical History: Reports: None Psychiatric Medical History: Reports: Depression Denies: Alcohol Dependency, General Anxiety Disorder, Substance Abuse, Tobacco Dependency Hematology: Reports: Other - Easy bruising Infectious Medical History: Denies: Clostridium Difficile, Hepatitis B, Hepatitis C, Methicillin- Resistant Staph Aureus Past Surgical History Past Surgical History: Reports: Cardiac Catheterization, Cholecystectomy, Coronary Artery Bypass Graft - 4 vessel, Coronary Stent, Orthopedic Surgery - R shoulder; R AKA; L elbow Denies: Tonsillectomy Social History Lives with: Family Smoking Status: Never Smoker Frequency of Alcohol Use: None Hx Recreational Drug Use: No Drugs: None, Marijuana Hx Prescription Drug Abuse: No - Advance Directive Resuscitation Status: Full Code Family History Family History: CAD, Other - Patient did not know his father and does not know his mother's history either. Parental Family History Reviewed: Yes Children Family History Reviewed: Unknown Sibling(s) Family History Reviewed.: Unknown Medication/Allergy Home Medications: Atorvastatin Calcium 1 tab PO QHS 06/19/14 Omeprazole [Prilosec] 1 tab PO DAILY 06/19/14 Insulin Glargine,Hum.rec.anlog [Lantus] 37 unit SQ QAM 06/21/14 Insulin Aspart [Novolog Flexpen] 20 unit SUBCUT AC 08/04/14 Oxycodone HCl/Acetaminophen [Oxycodone-Acetaminophen 10-325] 1 each PO TID PRN 08/04/14 Valsartan [Diovan] 1 tab PO DAILY 07/30/15 Apixaban [Eliquis 2.5 mg Tablet] 1 tab PO BID 04/29/16 Carvedilol [Coreg 6.25 mg Tablet] 1 tab PO Q12 04/29/16 Clopidogrel Bisulfate [Clopidogrel] 1 tab PO DAILY 04/29/16 Furosemide [Lasix 20 mg Tablet] 2 tab PO QAM 04/29/16 Insulin Glargine,Hum.rec.anlog [Lantus] 40 unit SQ QPM 04/29/16 Potassium Chloride 1 tab PO DAILY 04/29/16 Prednisone [Deltasone 10 mg Tablet] 10 mg PO ASDIR PRN #21 tablet 04/29/16 Albuterol Sulfate [Proair HFA Inhalation Aerosol 8.5 gm MDI] 2 puff IH Q4H PRN # 1 mdi 05/29/16 Allergies/Adverse Reactions: meperidine HCl [From Demerol] Allergy (Unknown, Verified 10/27/16 17:45) n/v propoxyphene napsylate [From Darvocet-N 100] Allergy (Unknown, Verified 17:45) exenatide [From Byetta] Allergy (Verified 10/27/16 17:45) morphine [Morphine] Allergy (Verified 10/27/16 17:45) n/v Review of Systems Constitutional: ABSENT: fever(s), headache(s), night sweats, weakness Eyes: ABSENT: visual disturbances Ears: ABSENT: hearing changes Nose, Mouth, and Throat: ABSENT: sore throat Cardiovascular: ABSENT: chest pain, edema, orthropnea Respiratory: ABSENT: dyspnea, hemoptysis Gastrointestinal: ABSENT: abdominal pain, dysphagia, hematemesis, melena Genitourinary: ABSENT: dysuria, hematuria Musculoskeletal: ABSENT: joint swelling Integumentary: ABSENT: pruritus Neurological: ABSENT: syncope, tremor(s), vertigo Endocrine: ABSENT: polydipsia, polyphagia, polyuria Hematologic/Lymphatic: ABSENT: easy bruising Physical Exam Vital Signs: Temp Pulse Resp BP Pulse Ox 97.6 F 64 16 138/53 H 97 10/28/16 05:36 10/28/16 05:36 10/28/16 05:36 10/28/16 05:36 10/28/16 05:36 General appearance: PRESENT: no acute distress, well-developed, well-nourished Head exam: PRESENT: atraumatic, normocephalic Eye exam: PRESENT: EOMI, PERRLA. ABSENT: nystagmus, scleral icterus Mouth exam: PRESENT: moist, neck supple Throat exam: ABSENT: tonsillar exudate, tonsillogmegaly Neck exam: ABSENT: meningismus, thyromegaly Respiratory exam: PRESENT: symmetrical, unlabored. ABSENT: accessory muscle use , tachypnea, wheezes Cardiovascular exam: PRESENT: RRR, +S1, +S2 Vascular exam: PRESENT: normal capillary refill GI/Abdominal exam: PRESENT: soft. ABSENT: rebound, rigid, tenderness Extremities exam: ABSENT: joint swelling Neurological exam: PRESENT: oriented to time, oriented to situation, reflexes normal, CN II-XII grossly intact Skin exam: PRESENT: normal color. ABSENT: mottled, pallor, petechiae, urticaria , vesicles Results Laboratory Results: 10/28/16 03:40 10/28/16 10/28/16 03:40 03:40 WBC 9.2 RBC 5.10 Hgb 13.2 L Hct 41.3 MCV 81 MCH 25.8 L MCHC 31.9 L RDW 15.5 H Plt Count 224 Magnesium 2.2 Assessment & Plan - Diagnosis (1) Lower GI bleed Plan: so far during the admission has been stable will need to discontinue his anticoagulant therapy due to GI bleeding, but hopefully just on a temporary basis will need repeat colonoscopy to determine the etiology should be ready to proceed tomorrow am since we cannot check his anticoagulant profile due to use of new agents Risks, benefits and alternatives of the procedure are explained to the patient in detail he can have clears the rest of the day will start prep later on today for anticipate procedure on 10/29 unless there are any other issues - Time Time Spent: 50 to 70 Minutes
[2016-10-28 07:33] LABS: HEMATOCRIT 41.4 % (37.9-51.0); HEMOGLOBIN 13.6 g/dL (13.5-17.0); HGB HCT DIFFERENCE -0.6; MEAN CORPUSCULAR HEMOGLOBIN 26.6 pg (27.0-33.4); MEAN CORPUSCULAR HGB CONC 32.8 g/dL (32.0-36.0); MEAN CORPUSCULAR VOLUME 81 fl (80-97); RED BLOOD COUNT 5.11 10^6/uL (4.35-5.55); RED CELL DISTRIBUTION WIDTH 15.5 % (11.5-14.0); WHITE BLOOD COUNT 9.3 10^3/uL (4.0-10.5)
[2016-10-28 08:17] LABS: ANION GAP 11 (5-19); BLOOD UREA NITROGEN 33 mg/dL (7-20); CALCIUM 9.4 mg/dL (8.4-10.2); CARBON DIOXIDE 25 mmol/L (22-30); CHLORIDE 109 mmol/L (98-107); CREATININE RESULT 1.32 mg/dL (0.52-1.25); GLUCOSE 110 mg/dL (75-110); POTASSIUM 4.2 mmol/L (3.6-5.0)
[2016-10-28] MEDS: FAMOTIDINE INJ/PF 20 MG/2 ML SDV IV SCH ×2 (09:31→22:56)
[2016-10-28] MEDS ORDERED: (PENDING PHARMACY ID) (Oxycodone Hcl/Acetaminophen [Percocet 10-325 Mg Tablet] 1 EACH) PO PRN (11:15)
[2016-10-28] MEDS ORDERED: OXYCODONE HCL IR 5 MG TABLET PO PRN (11:33)
[2016-10-28] MEDS ORDERED: OXYCODONE-ACETAMINOPHEN 5-325 MG TABLET PO PRN (11:35)
[2016-10-28 11:36] LABS: HEMATOCRIT 38.1 % (37.9-51.0); HEMOGLOBIN 12.4 g/dL (13.5-17.0); HGB HCT DIFFERENCE -0.9; MEAN CORPUSCULAR HEMOGLOBIN 26.1 pg (27.0-33.4); MEAN CORPUSCULAR HGB CONC 32.5 g/dL (32.0-36.0); MEAN CORPUSCULAR VOLUME 81 fl (80-97); RED BLOOD COUNT 4.73 10^6/uL (4.35-5.55); RED CELL DISTRIBUTION WIDTH 15.9 % (11.5-14.0); WHITE BLOOD COUNT 7.4 10^3/uL (4.0-10.5)
[2016-10-28] MEDS ORDERED: CARVEDILOL 6.25 MG TABLET PO ONE (12:00)
--- NOTE | 2016-10-28 13:50 | PDOC PROGRESS REPORT ---
Subjective Progress Note for:: 10/28/16 Subjective:: No further bleeding noted since admission. Patient wants to eat. I have discussed with him that he is being prepped for colonoscopy. Advised him that we can give him clear liquids until midnight but no solid food. Patient denies fever, chills, headache, new focal weakness, chest pain, shortness of breath, abdominal pain, nausea, vomiting, diarrhea, constipation. Physical Exam Vital Signs: Temp Pulse Resp BP Pulse Ox 98.4 F 77 19 151/70 H 96 10/28/16 11:40 10/28/16 11:40 10/28/16 11:40 10/28/16 11:40 10/28/16 11:40 Intake & Output 10/27/16 10/28/16 10/29/16 06:59 06:59 06:59 Intake Total 50 222 Balance 50 222 GENERAL: No acute distress HEENT: Conjunctiva clear, nonicteric, moist mucous membranes, no JVD, midline trachea RESPIRATORY: Clear to auscultation bilaterally, no wheezes, no rhonchi CARDIAC: Regular rate and rhythm, no murmurs/gallops/rubs ABDOMEN: Soft, nondistended, nontender, positive bowel sounds, no rebound, no guarding EXTREMETIES: No edema, cyanosis, clubbing. Right [id number] amputation NEUROLOGIC: Alert, oriented to person/place/time, CN's grossly intact, no focal deficits SKIN: No rash, wounds PSYCH: Normal mood, normal affect Results Laboratory Results: 10/28/16 11:30 10/28/16 07:25 10/28/16 10/28/16 10/28/16 03:40 03:40 07:25 WBC 9.2 9.3 RBC 5.10 5.11 Hgb 13.2 L 13.6 Hct 41.3 41.4 MCV 81 81 MCH 25.8 L 26.6 L MCHC 31.9 L 32.8 RDW 15.5 H 15.5 H Plt Count 224 242 Sodium Potassium Chloride Carbon Dioxide Anion Gap BUN Creatinine Est GFR ( Amer) Est GFR (Non-Af Amer) Glucose Calcium Magnesium 2.2 10/28/16 10/28/16 07:25 11:30 WBC 7.4 RBC 4.73 Hgb 12.4 L Hct 38.1 MCV 81 MCH 26.1 L MCHC 32.5 RDW 15.9 H Plt Count 228 Sodium 145.0 Potassium 4.2 Chloride 109 H Carbon Dioxide 25 Anion Gap 11 BUN 33 H Creatinine 1.32 H Est GFR ( Amer) > 60 Est GFR (Non-Af Amer) 55 L Glucose 110 Calcium 9.4 Magnesium Assessment & Plan - Diagnosis (1) Lower GI bleed Is this a current diagnosis for this admission?: YesPlan: Eliquis and Plavix discontinued. H&H stable at this point. Patient has been evaluated by Dr. Centeno of GI and current plan is to have colonoscopy in the morning. (2) Insulin dependent diabetes mellitus Is this a current diagnosis for this admission?: YesPlan: Hold scheduled insulin for now while on clear liquid diet. Cover with sliding scale insulin. (3) Atrial fibrillation Qualifiers: Atrial fibrillation type: unspecified Qualified Code(s): I48.91 - Unspecified atrial fibrillation Is this a current diagnosis for this admission?: YesPlan: Heart rate stable. Continue Coreg. Hold anticoagulation secondary to acute bleeding. (4) CKD (chronic kidney disease), stage III Is this a current diagnosis for this admission?: Yes (5) Coronary artery disease Qualifiers: Coronary Disease-Associated Artery/Lesion type: [place] artery [place] vs. transplanted heart: [place] heart Associated angina: angina presence unspecified Qualified Code(s): I25.10 - Atherosclerotic heart disease of [place] coronary artery without angina pectoris Is this a current diagnosis for this admission?: YesPlan: Hold Plavix secondary to bleeding. Continue beta-sai and statin. (6) Hyperlipidemia Qualifiers: Hyperlipidemia type: unspecified Qualified Code(s): E78.5 - Hyperlipidemia, unspecified Is this a current diagnosis for this admission?: Yes (7) Hypertension Qualifiers: Hypertension type: essential hypertension Qualified Code(s): I10 - Essential (primary) hypertension Is this a current diagnosis for this admission?: Yes (8) ribbon tier current use of anticoagulant therapy Is this a current diagnosis for this admission?: Yes (9) Peripheral vascular disease Is this a current diagnosis for this admission?: YesPlan: Status post right above-knee amputation. - Time Time Spent with patient: 25-34 minutes
[2016-10-28 15:53] LABS: MEAN CORPUSCULAR HEMOGLOBIN 26.4 pg (27.0-33.4); MEAN CORPUSCULAR HGB CONC 32.5 g/dL (32.0-36.0); MEAN CORPUSCULAR VOLUME 81 fl (80-97); RED BLOOD COUNT 4.56 10^6/uL (4.35-5.55); RED CELL DISTRIBUTION WIDTH 15.2 % (11.5-14.0); WHITE BLOOD COUNT 7.5 10^3/uL (4.0-10.5)
[2016-10-28] MEDS ORDERED: PEG 3350/NA SULF,BICARB,CL/KCL 4000 ML PO PRN (18:00)
[2016-10-28] MEDS ORDERED: ATORVASTATIN CALCIUM 80 MG TABLET PO SCH (22:00)
[2016-10-28] MEDS: CARVEDILOL 6.25 MG TABLET PO SCH (22:57)
[2016-10-28] MEDS: FUROSEMIDE 40 MG TABLET PO SCH (22:59)
[2016-10-29 06:44] LABS: ABSOLUTE EOSINOPHILS # (AUTO) 0.2 10^3/uL (0.0-0.6); ABSOLUTE LYMPHOCYTES (AUTO) 1.3 10^3/uL (0.5-4.7); ABSOLUTE MONOCYTES (AUTO) 0.6 10^3/uL (0.1-1.4); ABSOLUTE NEUT (AUTO) 5.4 10^3/uL (1.7-8.2); BASOPHILS % (AUTO) 0.4 % (0-2); HEMATOCRIT 36.6 % (37.9-51.0); HEMOGLOBIN 11.7 g/dL (13.5-17.0); HGB HCT DIFFERENCE -1.5; LYMPHOCYTES % (AUTO) 17.1 % (13-45); MEAN CORPUSCULAR HEMOGLOBIN 26.2 pg (27.0-33.4); MEAN CORPUSCULAR VOLUME 82 fl (80-97); MONOCYTES % (AUTO) 8.1 % (3-13); RED BLOOD COUNT 4.47 10^6/uL (4.35-5.55); RED CELL DISTRIBUTION WIDTH 15.7 % (11.5-14.0); SEGMENTED NEUTROPHILS % (AUTO) 71.4 % (42-78); WHITE BLOOD COUNT 7.6 10^3/uL (4.0-10.5)
[2016-10-29 07:06] LABS: ANION GAP 10 (5-19); BLOOD UREA NITROGEN 23 mg/dL (7-20); CALCIUM 8.7 mg/dL (8.4-10.2); CARBON DIOXIDE 24 mmol/L (22-30); CHLORIDE 109 mmol/L (98-107); CREATININE RESULT 1.26 mg/dL (0.52-1.25); GLUCOSE 160 mg/dL (75-110); POTASSIUM 4.2 mmol/L (3.6-5.0); SODIUM 143.2 mmol/L (137-145)
[2016-10-29] MEDS ORDERED: VALSARTAN 160 MG TABLET PO SCH (10:00)
[2016-10-29] MEDS ORDERED: ONDANSETRON HCL INJ/PF 4 MG/2 ML SDV ONE (10:23)
[2016-10-29] MEDS ORDERED: DIPHENHYDRAMINE HCL 50 MG/ML VIAL ONE (10:23)
[2016-10-29] MEDS ORDERED: NALOXONE HCL INJ/PF 0.4 MG/1 ML SDV ONE (10:23)
[2016-10-29] MEDS ORDERED: EPINEPHRINE INJ 1 MG/10 ML DISP.SYRIN ONE (10:25)
[2016-10-29] MEDS ORDERED: FLUMAZENIL INJ 0.5 MG/5 ML VIAL IV ONE (10:25)
[2016-10-29] MEDS ORDERED: GLUCAGON,HUMAN RECOMB 1 MG INJ ONE (10:25)
[2016-10-29] MEDS: MIDAZOLAM 2 MG/2 ML INJ ONE ×3 (11:12→11:34)
[2016-10-29] MEDS: FENTANYL CITRATE INJ/PF 100 MCG/2 ML AMPUL ONE ×2 (11:14→11:21)
--- NOTE | 2016-10-29 11:45 | Operative Report ---
Operative Report DATE OF SURGERY: 10/29/16 Operative Report: The risks, benefits and alternatives of the procedure including risks of bleeding, perforation requiring surgery are explained to the patient detail and informed consent was obtained. Patient was brought back to the endoscopy suite and placed in the left, lateral decubital position. Timeout was called. Conscious sedation medications are provided. A rectal examination was done which did not reveal any masses, tears or fissures. An Olympus video scope was inserted into the patient's rectum. Scope was then carefully advanced all the way to the cecum. Cecum was identified by the usual anatomical landmarks including the ileocecal valve as well as the appendiceal office. Photodocumentation is obtained. The scope was then sequentially pulled back via the various segments of the colon including the ascending colon, hepatic flexure, transverse colon, splenic flexure, descending colon and finally to the rectosigmoid portions of the colon. Retroflexion maneuver was performed. The risks benefits and alternatives of the procedure explained to the patient in detail and informed consent is obtained. A GIF Olympus video scope was inserted into the patient's mouth and hypopharynx, the esophagus is identified intubated and insufflated, the scope was then advanced through the esophagus stomach and duodenum ,retroflexion maneuver is done, the esophagus stomach and first and second portions of the duodenum examined PREOPERATIVE DIAGNOSIS: Rectal bleeding. History of gastroesophageal reflux disease. POSTOPERATIVE DIAGNOSIS: Negative colonoscopy except for some mild internal hemorrhoids. Small polyp that was removed via biopsy forceps. Nodular gastritis status post biopsy rule out Helicobacter pylori. No lower GI source of bleeding noted, could have bled from hemorrhoids exacerbated by the use of Plavix and Eliquis. No upper GI source of bleeding noted OPERATION: Colonoscopy with biopsy. EGD with biopsy SURGEON: MADDIE OROZCO ANESTHESIA: Moderate Sedation - 25 mg of Benadryl, 4 mg of Versed, 50 mcg of fentanyl. Conscious sedation monitoring time 30 minutes. TISSUE REMOVED OR ALTERED: Small specimens obtained as above. COMPLICATIONS: None. ESTIMATED BLOOD LOSS: None. INTRAOPERATIVE FINDINGS: As described above. PROCEDURE: Patient tolerated the procedure well. No immediate postprocedure complications are noted. Patient discharged back to her room in good condition. Can resume previous diet, advance as tolerated. Resume normal activity level as tolerated. We will wait on biopsies. Continue to monitor for further bleeding. Can follow-up as outpatient.
[2016-10-29] MEDS: FUROSEMIDE 40 MG TABLET PO SCH (12:53)
[2016-10-29] MEDS: CARVEDILOL 6.25 MG TABLET PO SCH (12:54)
[2016-10-29] MEDS: FAMOTIDINE INJ/PF 20 MG/2 ML SDV IV SCH (12:54)
[2016-10-29 14:05] VITALS: BP 149/68
--- NOTE | 2016-10-29 15:26 | PDOC DISCHARGE SUMMARY ---
General - Admit/Disc Date/PCP Admission Date/Primary Care Provider: 10/28/16 00:31 Discharge Date: 10/29/16 - Discharge Diagnosis (1) Lower GI bleed Is this a current diagnosis for this admission?: Yes (2) [facility]DC current use of anticoagulant therapy Is this a current diagnosis for this admission?: Yes (3) Atrial fibrillation Is this a current diagnosis for this admission?: Yes (4) Coronary artery disease Is this a current diagnosis for this admission?: Yes (5) Insulin dependent diabetes mellitus Is this a current diagnosis for this admission?: Yes (6) CKD (chronic kidney disease), stage III Is this a current diagnosis for this admission?: Yes (7) Hyperlipidemia Is this a current diagnosis for this admission?: Yes (8) Hypertension Is this a current diagnosis for this admission?: Yes (9) Peripheral vascular disease Is this a current diagnosis for this admission?: Yes - Additional Information Resuscitation Status: Full Code Discharge Diet: Cardiac, Diabetic Discharge Activity: Activity As Tolerated Home Medications: Atorvastatin Calcium [Lipitor 80 mg Tablet] 80 mg PO QHS 10/28/16 Carvedilol [Coreg 6.25 mg Tablet] 6.25 mg PO Q12 10/28/16 Furosemide [Lasix] 40 mg PO Q12 10/28/16 Insulin Aspart [Novolog Flexpen] 20 unit SUBCUT AC 10/28/16 Insulin Glargine,Hum.rec.anlog [Lantus] 50 unit SQ QAM 10/28/16 Insulin Glargine,Hum.rec.anlog [Lantus] 50 unit SQ QPM 10/28/16 Omeprazole 20 mg PO DAILY 10/28/16 Oxycodone HCl/Acetaminophen [Percocet 10-325 mg Tablet] 1 each PO Q6HP PRN 10/28 Valsartan [Diovan] 160 mg PO DAILY 10/28/16 Clopidogrel Bisulfate [Plavix 75 mg Tablet] 75 mg PO DAILY #30 tablet 10/29/16 History of Present Illness Patient complains of: Rectal bleeding History of Present Illness: LULU PATEL is a 61 year old male with underlying hyperlipidemia, insulin-dependent diabetes mellitus, diffuse vascular disease, having suffered prior stroke, without residual aftereffects, coronary artery disease, and peripheral vascular disease, status post right above-knee amputation, along with underlying atrial fibrillation, on Eliquis for same,, also on Plavix, who presents to the emergency room for evaluation of onset of bright red rectal bleeding at 4 PM the day of admission during a bowel movement. Hospital Course Hospital Course: Patient was admitted for rectal bleeding associated with Eliquis and Plavix administration. Rectal bleeding subsided with discontinuation of Eliquis and Plavix. H&H dropped slightly but patient did not require transfusion. He underwent upper endoscopy which showed gastritis and lower endoscopy which showed colonic polyp that was biopsied but no active source of bleeding. Case was discussed with GI Dr. Dodson and Dr. Haji of cardiology and decision was made to hold Eliquis for now and continue Plavix. Patient should follow-up with his primary care provider and ventilating engineer as soon as possible for further recommendations regarding anticoagulation management. Physical Exam Vital Signs: Temp Pulse Resp BP Pulse Ox 98.0 F 69 16 149/68 H 100 10/29/16 14:04 10/29/16 14:04 10/29/16 14:04 10/29/16 14:04 10/29/16 14:04 Intake & Output 10/28/16 10/29/16 10/30/16 06:59 06:59 06:59 Intake Total 50 2956 215 Balance 50 2956 215 Weight 107.076 kg GENERAL: No acute distress HEENT: Conjunctiva clear, nonicteric, moist mucous membranes, no JVD, midline trachea RESPIRATORY: Clear to auscultation bilaterally, no wheezes, no rhonchi CARDIAC: Regular rate and rhythm, no murmurs/gallops/rubs ABDOMEN: Soft, nondistended, nontender, positive bowel sounds, no rebound, no guarding EXTREMETIES: No edema, cyanosis, clubbing. Right [id number] amputation NEUROLOGIC: Alert, oriented to person/place/time, CN's grossly intact, no focal deficits SKIN: No rash, wounds PSYCH: Normal mood, normal affect Results Laboratory Results: 10/29/16 06:23 10/29/16 06:23 10/28/16 10/29/16 10/29/16 15:42 06:23 06:23 WBC 7.5 7.6 RBC 4.56 4.47 Hgb 12.0 L 11.7 L Hct 37.0 L 36.6 L MCV 81 82 MCH 26.4 L 26.2 L MCHC 32.5 32.0 RDW 15.2 H 15.7 H Plt Count 204 226 Seg Neutrophils % 71.4 Lymphocytes % 17.1 Monocytes % 8.1 Eosinophils % 3.0 Basophils % 0.4 Absolute Neutrophils 5.4 Absolute Lymphocytes 1.3 Absolute Monocytes 0.6 Absolute Eosinophils 0.2 Absolute Basophils 0.0 Sodium 143.2 Potassium 4.2 Chloride 109 H Carbon Dioxide 24 Anion Gap 10 BUN 23 H Creatinine 1.26 H Est GFR ( Amer) > 60 Est GFR (Non-Af Amer) 58 L Glucose 160 H Calcium 8.7 Qualifiers P[place]INT BEING DISCHARGED WITH ANY OF THE FOLLOWING DIAGNOSIS?: No Plan Time Spent: Less than 30 Minutes
== END 2016-10-29 14:13 | disposition home or self-care (01) | DRG 378 ==
LOC: ER 17:36 → EH 10-28 00:31 → 3S 10-28 03:54
PROVIDERS: ADMIT Family Medicine; ATTEND Family Medicine
PROC: 0DBN8ZX Excision of Sigmoid Colon, Via Natural or Artificial Opening Endoscopic, Diagnostic (ICD-10-PCS; principal; 2016-10-29 10:30)
PROC: 0DB68ZX Excision of Stomach, Via Natural or Artificial Opening Endoscopic, Diagnostic (ICD-10-PCS; 2016-10-29 10:30)
DX: K62.5 Hemorrhage of anus and rectum (principal); D68.32 Hemorrhagic disorder due to extrinsic circulating anticoagulants; T45.525A Adverse effect of antithrombotic drugs, initial encounter; E78.5 Hyperlipidemia, unspecified; E11.8 Type 2 diabetes mellitus with unspecified complications; I73.9 Peripheral vascular disease, unspecified; I25.10 Atherosclerotic heart disease of native coronary artery without angina pectoris; I48.91 Unspecified atrial fibrillation; E11.69 Type 2 diabetes mellitus with other specified complication; E66.9 Obesity, unspecified; M19.90 Unspecified osteoarthritis, unspecified site; I12.9 Hypertensive chronic kidney disease with stage 1 through stage 4 chronic kidney disease, or unspecified chronic kidney disease; E11.22 Type 2 diabetes mellitus with diabetic chronic kidney disease; E11.42 Type 2 diabetes mellitus with diabetic polyneuropathy; K21.9 Gastro-esophageal reflux disease without esophagitis; N18.3 Chronic kidney disease, stage 3 (moderate); F32.9 Major depressive disorder, single episode, unspecified; Z79.02 Long term (current) use of antithrombotics/antiplatelets; Z88.6 Allergy status to analgesic agent; Z86.73 Personal history of transient ischemic attack (TIA), and cerebral infarction without residual deficits; Z89.611 Acquired absence of right leg above knee; Z79.4 Long term (current) use of insulin; Z90.49 Acquired absence of other specified parts of digestive tract; Z95.5 Presence of coronary angioplasty implant and graft; Z87.891 Personal history of nicotine dependence; Z79.899 Other long term (current) drug therapy; Z82.49 Family history of ischemic heart disease and other diseases of the circulatory system; Y92.89 Other specified places as the place of occurrence of the external cause
CPT/HCPCS: 36415; 43239; 45380; 80048; 80053; 82272; 82962; 83735; 85025; 85027; 85610; 85730; 86850; 86900; 86901; 88305; 88342; 99285; J0171; J1200; J1610; J2250; J2310; J2405; J3010; J3490; J7030; S0028

== ENCOUNTER 2016-11-21 16:57 | Inpatient (IN) | payer MEDICAID ==
[~2016-11-21 16:57] MED LIST: GLYCOPYRROLATE INJ 0.4 MG/2 ML VIAL ONE; NEOSTIGMINE METHYLSULFATE 10 MG/10 ML VIAL ONE; ROCURONIUM BROMIDE INJ 50 MG/5 ML VIAL IV ONE; SUCCINYLCHOLINE CHLORIDE INJ 200 MG/10 ML VIAL ONE
--- NOTE | 2016-11-21 17:37 | ER Document Report ---
HPI - HPI Notes: Patient is a 61-year-old male with a history of A. fib, DVT, CKD, AICD, NC, PAD , CHF, CAD, diabetes who presents the ED complaining of right lower quadrant abdominal pain 2 days without known injury. Patient states that his began having sharp pains [address] home from [place] which has since been a constant pain. Patient states that the pain increases with movement and touch. Patient has noted a decreased appetite today. Patient states he still urinating normally and having normal bowel movements (although loose). Patient states that he had a GI bleed a 2-3 wks ago and they stopped his Eliquis to perform a colonoscopy. Patient has not been on his Eliquis since then which is been about 2 weeks now. He has not noticed any trouble urinating, burning, urgency, frequency, hematuria. He has not noticed any lumps in his groin or any testicular discomfort. Denies any headache, fever, URI, sore throat, chest pain, palpitations, syncope, cough, shortness of breath, wheeze, dyspnea, urinary retention, dysuria, hematuria, loss of control of bowel or bladder, numbness/tingling, saddle anesthesia, muscle paralysis/weakness, or rash. - ROS Notes: REVIEW OF SYSTEMS: CONSTITUTIONAL : Denies fever, chills, or sweats. Denies recent illness. EENT: Denies eye, ear, throat, or mouth pain or symptoms. Denies nasal or sinus congestion or discharge. Denies throat, tongue, or mouth swelling or difficulty swallowing. CARDIOVASCULAR: Denies chest pain. Denies palpitations or racing or irregular heart beat. Denies ankle edema. RESPIRATORY: Denies cough, cold, or chest congestion. Denies shortness of breath, difficulty breathing, or wheezing. GASTROINTESTINAL: see hpi GENITOURINARY: Denies difficulty urinating, painful urination, burning, frequency, blood in urine, or discharge. MUSCULOSKELETAL: Denies back or neck pain or stiffness. Denies joint pain or swelling. SKIN: Denies rash, lesions or sores. NEUROLOGICAL: Denies confusion or altered mental status. Denies passing out or loss of consciousness. Denies dizziness or lightheadedness. Denies headache. Denies weakness or paralysis or loss of use of either side. Denies problems with gait or speech. Denies sensory loss, numbness, or tingling. ALL OTHER SYSTEMS REVIEWED AND NEGATIVE. Dictation was performed using [employer] voice recognition software - REPRODUCTIVE Reproductive: DENIES: : Past Medical History - Social History Smoking Status: Unknown if Ever Smoked Family History: CAD - Past Medical History Cardiac Medical History: Reports: Hx Atrial Fibrillation, Hx Congestive Heart Failure, Hx Coronary Artery Disease, Hx Heart Attack, Hx Hypercholesterolemia, Hx Hypertension, Hx Peripheral Vascular Disease Denies: Hx Pulmonary Embolism Pulmonary Medical History: Reports: Hx Respiratory Failure Denies: Hx Asthma, Hx COPD, Hx Sleep Apnea, Hx Tuberculosis Neurological Medical History: Reports: Hx Cerebrovascular Accident. 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 Denies: Hx Diabetes Mellitus Type 1, Hx Hyperthyroidism , Hx Hypothyroidism Renal/ Medical History: Reports: Hx Renal Insufficiency. Denies: Hx Peritoneal Dialysis GI Medical History: Reports: Hx Gastroesophageal Reflux Disease. Denies: Hx Cirrhosis, Hx Hepatitis Musculoskeltal Medical History: Reports Hx Arthritis Psychiatric Medical History: Reports: Hx Depression - Mild and infrequent; denies suicidal or homicidal ideation. Infectious Medical History: Denies: Hx C-Diff, Hx Hepatitis, Hx MRSA Past Surgical History: Reports: Hx Cardiac Catheterization, Hx Cardiac Surgery - quad bypass, Hx Cholecystectomy, Hx Coronary Artery Bypass Graft - 4 vessel, Hx Coronary Stent, Hx Orthopedic Surgery - R shoulder; R AKA; L elbow. Denies: Hx Tonsillectomy - Immunizations Hx Diphtheria, Pertussis, Tetanus Vaccination: Yes Hx Pneumococcal Vaccination: 12/17/10 Vertical Provider Document - CONSTITUTIONAL Agree With Documented VS: Yes Notes: PHYSICAL EXAMINATION: GENERAL: Well-appearing, well-nourished and in no acute distress. NECK: Normal range of motion, supple without lymphadenopathy EKG LUNGS: Breath sounds clear to auscultation bilaterally and equal. No wheezes rales or rhonchi. HEART: Regular rate and rhythm without murmurs, rubs, gallops. ABDOMEN: obese, Soft, nondistended abdomen. + guarding to RLQ. + tenderness to palpation of the lower abdomen R>L. No masses appreciated. Normal bowel sounds present. No CVA tenderness bilaterally. No inguinal adenopathy, masses , or hernias noted. : No testicular lesions, ulceration. Non-tender to palp of testicles/penis. Musculoskeletal: LE's b/l: FROM to passive/active. Strength 5+/5. (above knee amp rt). Extremities: No cyanosis, clubbing, or edema b/l. Peripheral pulses 2+. Capillary refill less than 3 seconds. NEUROLOGICAL: Normal sensory, motor exams PSYCH: Normal mood, normal affect. SKIN: Warm, Dry, normal turgor, no rashes or lesions noted. - INFECTION CONTROL TRAVEL OUTSIDE OF THE [place] IN LAST 30 DAYS: No Course - Re-evaluation Re-evalutation: 11/21/16 19:14 Patient is an afebrile, well-hydrated, 61-year-old male who presents the ED with suspected appendicitis based on CT scan, H&P today. Vitals are stable. PE otherwise unremarkable. Patient does show to have an elevated white count with a left shift and chronic kidney disease with a creatinine of 2.95. Reviewed case with Dr. Hughes, general surgeon, who will evaluate the patient. Patient does have a significant past medical history as noted in HPI. Pt care to be taken over by Dr. Hughes. Pt is in agreement with plan. 20:57 Pt to go to the OR from the ED per Dr. Hughes. Called Progress Man Dr. Gottlieb who cleared patient for surgery. Consult order placed for Hospitalist as well per Dr. Gottlieb. Pt to go to ICU post op. - Laboratory Result Diagrams: 11/21/16 17:45 11/21/16 17:45 Discharge - Discharge Clinical Impression: Acute appendicitis Qualifiers: Acute appendicitis type: unspecified acute appendicitis type Qualified Code(s) : K35.80 - Unspecified acute appendicitis Condition: Stable Disposition: ADMITTED INPATIENT Admitting Provider: Surgicalist - Dr. Hughes Unit Admitted: ICU
[2016-11-21 18:05] LABS: ABSOLUTE BASOPHILS # (AUTO) 0.1 10^3/uL (0.0-0.2); ABSOLUTE EOSINOPHILS # (AUTO) 0.1 10^3/uL (0.0-0.6); ABSOLUTE LYMPHOCYTES (AUTO) 1.6 10^3/uL (0.5-4.7); ABSOLUTE MONOCYTES (AUTO) 1.2 10^3/uL (0.1-1.4); ABSOLUTE NEUT (AUTO) 11.1 10^3/uL (1.7-8.2); BASOPHILS % (AUTO) 0.4 % (0-2); EOSINOPHILS % (AUTO) 0.9 % (0-6); HEMATOCRIT 37.1 % (37.9-51.0); HEMOGLOBIN 12.3 g/dL (13.5-17.0); HGB HCT DIFFERENCE -0.2; LYMPHOCYTES % (AUTO) 11.2 % (13-45); MEAN CORPUSCULAR HEMOGLOBIN 27.1 pg (27.0-33.4); MEAN CORPUSCULAR HGB CONC 33.1 g/dL (32.0-36.0); MEAN CORPUSCULAR VOLUME 82 fl (80-97); MONOCYTES % (AUTO) 8.4 % (3-13); RED BLOOD COUNT 4.53 10^6/uL (4.35-5.55); RED CELL DISTRIBUTION WIDTH 14.9 % (11.5-14.0); SEGMENTED NEUTROPHILS % (AUTO) 79.1 % (42-78); WHITE BLOOD COUNT 14.1 10^3/uL (4.0-10.5)
[2016-11-21 18:19] LABS: ALANINE AMINOTRANSFERASE 39 U/L (21-72); ALBUMIN 3.9 g/dL (3.5-5.0); ALKALINE PHOSPHATASE 138 U/L (38-126); ANION GAP 13 (5-19); ASPARTATE AMINO TRANSFERASE 29 U/L (17-59); BILIRUBIN,DIRECT 0.4 mg/dL (0.0-0.4); BILIRUBIN,TOTAL 0.8 mg/dL (0.2-1.3); BLOOD UREA NITROGEN 51 mg/dL (7-20); CALCIUM 8.8 mg/dL (8.4-10.2); CARBON DIOXIDE 26 mmol/L (22-30); CHLORIDE 100 mmol/L (98-107); CREATININE RESULT 2.95 mg/dL (0.52-1.25); GLUCOSE 88 mg/dL (75-110); POTASSIUM 3.7 mmol/L (3.6-5.0); SODIUM 139.4 mmol/L (137-145); TOTAL PROTEIN 7.3 g/dL (6.3-8.2)
[2016-11-21 18:52] LABS: APPEARANCE,URINE SLIGHTLY-CLOUDY; BILIRUBIN,URINE NEGATIVE (NEGATIVE); GLUCOSE, URINE NEGATIVE (NEGATIVE); KETONES,URINE NEGATIVE (NEGATIVE); LEUKOCYTE ESTERASE,URINE NEGATIVE (NEGATIVE); NITRITE,URINE NEGATIVE (NEGATIVE); PROTEIN,URINE 30 mg/dL (NEGATIVE)
--- NOTE | 2016-11-21 19:05 | RADIOLOGY REPORT (SQ) ---
EXAM DESCRIPTION: CT ABD/PELVIS NO ORAL OR IV COMPLETED DATE/TIME: 11/21/2016 6:49 pm REASON FOR STUDY: RLQ pain COMPARISON: None. TECHNIQUE: CT scan of the abdomen and pelvis performed without intravenous or oral contrast. Images reviewed with lung, soft tissue, and bone windows. Reconstructed coronal and sagittal MPR images revi ewed. All images stored on PACS. All CT scanners at this facility use dose modulation, iterative reconstruction, and/or weight based d osing when appropriate to reduce radiation dose to as low as reasonably achievable (ALARA). [facility]: Dose Right [facility]: CareDose [facility]: Dose Right [facility]: Teradose 4D [facility]: [employer] RADIATION DOSE: Up-to-date CT equipment and radiation dose reduction techniques were employed. CTDIv ol: 18.7 mGy. DLP: 1124 mGy-cm.mGy. LIMITATIONS: None. FINDINGS: LOWER CHEST: No significant findings. No nodules or infiltrates. NON-CONTRASTED LIVER, SPLEEN, ADRENALS: Evaluation limited by lack of IV contrast. No identified sign ificant masses. PANCREAS: No masses. No peripancreatic inflammatory changes. GALLBLADDER: Surgically absent. RIGHT KIDNEY AND URETER: No suspicious masses. Assessment limited by lack of IV contrast. No signif icant calcifications. No hydronephrosis or hydroureter. LEFT KIDNEY AND URETER: No suspicious masses. Assessment limited by lack of IV contrast. No signifi cant calcifications. No hydronephrosis or hydroureter. AORTA AND RETROPERITONEUM: IVC filter present. No aneurysm. No retroperitoneal masses or adenopathy. BOWEL AND PERITONEAL CAVITY: No obvious masses or inflammatory changes. No free fluid. APPENDIX: Mild stranding in the mid mesentery adjacent to the tip of the appendix. Normal caliber. PELVIS, BLADDER, AND ABDOMINAL WALL:No abnormal masses. No free fluid. Bladder normal. BONES: No significant findings. OTHER: No other significant finding. IMPRESSION: Mild stranding in the mid mesentery adjacent to the tip of the appendix. Normal caliber . No fluid collection or free air. TECHNICAL DOCUMENTATION: JOB ID: [id number] Quality ID # [id number]: Final reports with documentation of one or more dose reduction techniques (e.g., Au tomated exposure control, adjustment of the mA and/or kV according to patient size, use of iterative reconstruction technique) 2010 [employer]- All Rights Reserved
[2016-11-21] MEDS ORDERED: PIPERACILLIN/TAZOBACTAM 3.375 GM VIAL IV ONE (19:26)
[2016-11-21] MEDS ORDERED: NORMAL SALINE 1000 ML 1,000 ML IV PRN ×2 (19:28→22:50)
[2016-11-21] MEDS ORDERED: NORMAL SALINE 1000 ML 1,000 ML IV ONE (19:29)
[2016-11-21] MEDS ORDERED: INSULIN LISPRO 100 UNIT/ML 3 ML VIAL SUBCUT PRN (19:53)
[2016-11-21] MEDS ORDERED: DEXTROSE 50%-WATER 25 GM/50 ML DISP.SYRIN IV PRN ×2 (19:53)
[2016-11-21] MEDS ORDERED: GLUCAGON,HUMAN RECOMB 1 MG INJ IM PRN (19:53)
[2016-11-21] MEDS ORDERED: DEXTROSE 40% GEL 15 GM TUBE PO PRN ×2 (19:53)
[2016-11-21] MEDS ORDERED: IPRATROPIUM/ALBUTEROL 0.5-2.5 MG/3 ML AMPUL NEB PRN (19:55)
[2016-11-21] MEDS ORDERED: ENALAPRILAT DIHYDRATE INJ/PF 1.25 MG/1 ML SDV IV PRN (20:09)
[2016-11-21 20:34] LABS: CREATINE KINASE MB 3.61 ng/mL (<4.55)
[2016-11-21] MEDS ORDERED: BUPIVACAINE HCL 0.25 % INJ/PF (2.5 MG/1 ML) 30 ML VIAL ONE (20:36)
[2016-11-21] MEDS ORDERED: FENTANYL CITRATE INJ/PF 100 MCG/2 ML AMPUL ONE ×4 (20:37→22:54)
[2016-11-21] MEDS ORDERED: ACETAMINOPHEN 100 ML IV ONE (20:38)
[2016-11-21] MEDS ORDERED: PROPOFOL INJ 200 MG/20 ML VIAL IV ONE (20:38)
[2016-11-21] MEDS ORDERED: ONDANSETRON HCL INJ/PF 4 MG/2 ML SDV ONE (20:38)
[2016-11-21] MEDS ORDERED: MIDAZOLAM 2 MG/2 ML INJ ONE (20:38)
[2016-11-21] MEDS ORDERED: DEXAMETHASONE SOD PHOSPHATE INJ 4 MG/1 ML VIAL ONE (20:38)
[2016-11-21 20:42] LABS: TROPONIN I 0.11 ng/mL
--- NOTE | 2016-11-21 20:58 | PDOC CONSULTATION ---
Consultation Consult Date: 11/21/16 Attending physician:: NOÉ BADILLO Consult reason:: Preop cardiovascular evaluation in patient with significant cardiac comorbidities History of Present Illness Admission Date/PCP: GERMAIN RIDDLE MD Patient complains of: Right lower quadrant discomfort History of Present Illness: LULU PATEL is a 61 year-old male with a history of A. fib, DVT, CKD, AICD, CA, PAD, CHF, CAD, diabetes who presents the ED complaining of right lower quadrant abdominal pain 2 days without known injury. Patient states that his began having sharp pains [address] home from [place] which has since then become a constant pain. Patient states that the pain increases with movement and touch. Patient has noted a decreased appetite today. Patient states he still urinating normally and having normal bowel movements (although loose). Patient states that he had a GI bleed a 2-3 wks ago and they stopped his Eliquis to perform a colonoscopy. Patient has not been on his Eliquis since then which is been about 2 weeks now. He has not noticed any trouble urinating, burning, urgency, frequency, hematuria. He has not noticed any lumps in his groin or any testicular discomfort. Denies any headache, fever, URI, sore throat, chest pain, palpitations, syncope, cough, shortness of breath, wheeze, dyspnea, urinary retention, dysuria, hematuria, loss of control of bowel or bladder, numbness/tingling, saddle anesthesia, muscle paralysis/weakness, or rash. Patient gives a complicated cardiac history which includes a 4 vessel bypass in [place] in 2004. He also had a defibrillator placed. She claims history of cardiomyopathy with depressed LVEF. His last echocardiogram here in February of last year had shown the EF of about 25% but he claims that he had a most recent echocardiogram at his private broadcast meteorologist from [facility] which showed an EF of about 45%. This was approximately 3 months ago. He was evaluated by his broadcast meteorologist about a month ago and was told to come back in 6 months. He was seen by his primary care navigator about a week or 2 ago. Patient denied any recent chest pain, palpitations, syncope, near syncope or defibrillator shocks. 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 Infectious Medical History: Denies: Clostridium Difficile, Methicillin-Resistant Staph Aureus Past Surgical History Past Surgical History: Reports: Cardiac Catheterization, Cholecystectomy, Coronary Artery Bypass Graft - 4 vessel, Coronary Stent, Internal Defibrillator , Orthopedic Surgery - R shoulder; R AKA; L elbow Denies: Tonsillectomy Social History Information Source: Patient Smoking Status: Unknown if Ever Smoked Frequency of Alcohol Use: None Hx Recreational Drug Use: No Drugs: None Hx Prescription Drug Abuse: No - Advance Directive Resuscitation Status: Full Code Family History Family History: CAD Parental Family History Reviewed: Yes Children Family History Reviewed: Yes Sibling(s) Family History Reviewed.: Yes Medication/Allergy Home Medications: Atorvastatin Calcium [Lipitor 80 mg Tablet] 80 mg PO QHS 10/28/16 Carvedilol [Coreg 6.25 mg Tablet] 6.25 mg PO Q12 10/28/16 Furosemide [Lasix] 40 mg PO Q12 10/28/16 Insulin Aspart [Novolog Flexpen] 20 unit SUBCUT AC 10/28/16 Insulin Glargine,Hum.rec.anlog [Lantus] 50 unit SQ QAM 10/28/16 Insulin Glargine,Hum.rec.anlog [Lantus] 50 unit SQ QPM 10/28/16 Omeprazole 20 mg PO DAILY 10/28/16 Oxycodone HCl/Acetaminophen [Percocet 10-325 mg Tablet] 1 each PO Q6HP PRN 10/28 Valsartan [Diovan] 160 mg PO DAILY 10/28/16 Clopidogrel Bisulfate [Plavix 75 mg Tablet] 75 mg PO DAILY #30 tablet 10/29/16 Allergies/Adverse Reactions: meperidine HCl [From Demerol] Allergy (Unknown, Verified 10/27/16 17:45) n/v propoxyphene napsylate [From Darvocet-N 100] Allergy (Unknown, Verified 17:45) exenatide [From Byetta] Allergy (Verified 10/27/16 17:45) morphine [Morphine] Allergy (Verified 10/27/16 17:45) n/v Review of Systems Constitutional: PRESENT: anorexia, chills, fatigue, weakness Eyes: ABSENT: visual disturbances Ears: ABSENT: hearing changes Nose, Mouth, and Throat: ABSENT: as per HPI, headache(s), mouth pain, sore throat, vertigo, other Cardiovascular: PRESENT: dyspnea on exertion, edema, palpitations Respiratory: PRESENT: cough, dyspnea. ABSENT: as per HPI, hemoptysis, sputum, other Gastrointestinal: PRESENT: abdominal pain, hematochezia, nausea, vomiting Genitourinary: PRESENT: nocturia. 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 ABSENT: as per HPI, cold intolerance, flushing, heat intolerance, menstrual abnormalities, polydipsia, polyphagia, other Hematologic/Lymphatic: PRESENT: other - History of recent GI bleed. ABSENT: easy bruising, lymphadenopathy Allergic/Immunologic: PRESENT: as per HPI Physical Exam Vital Signs: Temp Pulse Resp BP Pulse Ox 98.7 F 87 20 133/40 H 95 11/21/16 20:01 11/21/16 17:32 11/21/16 20:01 11/21/16 20:01 11/21/16 20:01 Intake & Output 11/20/16 11/21/16 11/22/16 06:59 06:59 06:59 Weight 104.326 kg Exam: GENERAL: well-nourished and in no acute distress. Alert and oriented x3 HEAD: Atraumatic, normocephalic. EYES: Pupils equal round and reactive to light, extraocular movements intact, sclera anicteric, conjunctiva are normal. ENT: TMs normal, nares patent, oropharynx clear without exudates. Moist mucous membranes. No oral ulcerations or bleeding gums noted NECK: supple without lymphadenopathy. Trachea is central. No cervical or axillary lymphadenopathy noted. Carotids are 2+, JVD WNL LUNGS: Respiration seems nonlabored, no significant accessory muscle action noted. Breath sounds clear to auscultation bilaterally and equal noted. No wheezes rales or rhonchi noted. No significant dullness noted on percussion. CHEST: Palpation of the chest wall shows no significant chest wall tenderness. No other significant abnormalities noted. HEART: [place] DOOR TRIMMER, No PSH, 1/6 DONNA aortic area, 1/6 byers systolic murmur mitral area, no rubs, no gallops. ABDOMEN: Right lower quadrant marked tenderness appreciated, hypo-active bowel sounds. Mild guarding and rebound right lower quadrant. No rigidity noted . No masses appreciated. EXTREMITIES: Pedal pulses are 1-2+, no calf tenderness noted. No clubbing or cyanosis. 1+ pedal edema noted. Above-knee amputation on the left side. NEUROLOGICAL: Focused neurological exam showed no significant neurologic deficit. Normal speech, no focal weakness appreciated. PSYCH: Normal mood, normal affect. Judgment and insight within normal limits. SKIN: No significant ecchymosis, rash, ulcerations or signs of pruritus noted. MUSCULOSKELETAL EXAM: No significant joint swelling noted. Results Laboratory Results: 11/21/16 17:45 11/21/16 17:45 11/21/16 11/21/16 11/21/16 17:45 17:45 17:45 WBC 14.1 H RBC 4.53 Hgb 12.3 L Hct 37.1 L MCV 82 MCH 27.1 MCHC 33.1 RDW 14.9 H Plt Count 231 Seg Neutrophils % 79.1 H Lymphocytes % 11.2 L Monocytes % 8.4 Eosinophils % 0.9 Basophils % 0.4 Absolute Neutrophils 11.1 H Absolute Lymphocytes 1.6 Absolute Monocytes 1.2 Absolute Eosinophils 0.1 Absolute Basophils 0.1 Sodium 139.4 Potassium 3.7 Chloride 100 Carbon Dioxide 26 Anion Gap 13 BUN 51 H Creatinine 2.95 H Est GFR ( Amer) 26 L Est GFR (Non-Af Amer) 22 L Glucose 88 Calcium 8.8 Total Bilirubin 0.8 AST 29 ALT 39 Alkaline Phosphatase 138 H Total Protein 7.3 Albumin 3.9 Lipase 37.5 Urine Color Urine Appearance Urine pH Ur Specific [place] Urine Protein Urine Glucose (UA) Urine Ketones Urine Blood Urine Nitrite Ur Leukocyte Esterase Urine WBC (Auto) Urine RBC (Auto) 11/21/16 18:35 WBC RBC Hgb Hct MCV MCH MCHC RDW Plt Count Seg Neutrophils % Lymphocytes % Monocytes % Eosinophils % Basophils % Absolute Neutrophils Absolute Lymphocytes Absolute Monocytes Absolute Eosinophils Absolute Basophils Sodium Potassium Chloride Carbon Dioxide Anion Gap BUN Creatinine Est GFR ( Amer) Est GFR (Non-Af Amer) Glucose Calcium Total Bilirubin AST ALT Alkaline Phosphatase Total Protein Albumin Lipase Urine Color YELLOW Urine Appearance SLIGHTLY-CLOUDY Urine pH 5.0 Ur Specific [place] 1.010 Urine Protein 30 H Urine Glucose (UA) NEGATIVE Urine Ketones NEGATIVE Urine Blood SMALL H Urine Nitrite NEGATIVE Ur Leukocyte Esterase NEGATIVE Urine WBC (Auto) 1 Urine RBC (Auto) 1 11/21/16 17:45 Creatine Kinase 199 H EKG Comments: Sinus rhythm with ventricular bigeminy. No acute ST segment changes noted. Impressions: Abdomen/Pelvis CT 11/21/16 18:33 IMPRESSION: Mild stranding in the mid mesentery adjacent to the tip of the appendix. Normal caliber. No fluid collection or free air. Assessment & Plan - Diagnosis (1) Preoperative cardiovascular examination Is this a current diagnosis for this admission?: Yes (2) Acute appendicitis Qualifiers: Acute appendicitis type: unspecified acute appendicitis type Qualified Code(s): K35.80 - Unspecified acute appendicitis (3) CHF (congestive heart failure) Qualifiers: Congestive heart failure type: unspecified congestive heart failure type Congestive heart failure chronicity: chronic Qualified Code(s): I50.9 - Heart failure, unspecified Is this a current diagnosis for this admission?: Yes (4) Diabetes mellitus Qualifiers: Diabetes mellitus type: type 2 Diabetes mellitus complication status: with unspecified complications Diabetes mellitus equipment operator intermodal yard insulin use: unspecified equipment operator intermodal yard insulin use status Qualified Code(s): E11.8 - Type 2 diabetes mellitus with unspecified complications; Z79.4 - USP (current) use of insulin Is this a current diagnosis for this admission?: Yes (5) Atrial fibrillation Qualifiers: Atrial fibrillation type: paroxysmal Qualified Code(s): I48.0 - Paroxysmal atrial fibrillation Is this a current diagnosis for this admission?: Yes (6) CKD (chronic kidney disease), stage III Is this a current diagnosis for this admission?: Yes (7) Coronary artery disease Qualifiers: Coronary Disease-Associated Artery/Lesion type: [place] artery [place] vs. transplanted heart: [place] heart Associated angina: angina presence unspecified Qualified Code(s): I25.10 - Atherosclerotic heart disease of [place] coronary artery without angina pectoris Is this a current diagnosis for this admission?: Yes (8) Hyperlipidemia Qualifiers: Hyperlipidemia type: unspecified Qualified Code(s): E78.5 - Hyperlipidemia, unspecified (9) Hypertension Qualifiers: Hypertension type: essential hypertension Qualified Code(s): I10 - Essential (primary) hypertension (10) Peripheral vascular disease Is this a current diagnosis for this admission?: Yes - Notes Notes: Preop cardiovascular evaluation: Patient is having acute appendicitis and is in significant abdominal discomfort. Agreed that patient is in need for emergent surgery. Patient was recently evaluated by his broadcast meteorologist and also primary care physician. Patient did have a stress test in February 2016 which showed mainly fixed defects and no ischemia. He does have significant LV systolic dysfunction however he claims that more recent echocardiogram about 3 months ago shows an EF of 45% but I do not have access to that echocardiogram. Patient is denying any chest pain, he is physically inactive but denied any shortness of breath at rest. I have cleared patient for surgery but explained that he would be higher than average risk but the surgeries needed. Would recommend recovering him at least initially in the unit with subsequent transfer to the floor when this stabilizes. Acute appendicitis: Patient to go for surgery. Will follow after surgery. Congestive heart failure: Currently compensated. Continue his home medications. Diabetes: Recommend good control of blood sugars, and avoid hypo-or hyperglycemia. Atrial fibrillation: Patient noted to have paroxysmal atrial fibrillation which short runs of atrial fibrillation in the ER. Will have low threshold for loading patient with amiodarone bolus and drip protocol should this become a significant problem. Chronic kidney disease: Patient seems to have stage IV chronic kidney disease. This is a independent adverse prognostic factor. May consider nephrology evaluation and follow-up. Coronary artery disease: Patient is currently stable but will continue to follow patient. Dyslipidemia: Recommend high potency statin therapy. Hypertension: Blood pressure under satisfactory control. Recommend IV beta blockers, nitroglycerin drip, nicardipine drip etc. if needed. PVD: Patient status post amputation on the left lower extremity. Currently stable without any active limb ischemia.. - Time Time Spent: 50 to 70 Minutes - A 2D echo was ordered but it should not delay surgery. Can be performed tomorrow. Will check postop EKGs 2. CODE STATUS was discussed, patient remains full code. Surrogate decision-maker unchanged. Multiple medical problems were addressed. More than 50% of the time spent coordinating care, discussing management plans with involved caregivers. Management plans discussed with involved personnels. Medical decision making was of moderate to high complexity, patient's has multiple comorbidities. Medications reviewed and adjusted accordingly: Yes
--- NOTE | 2016-11-21 21:19 | EKG REPORT ---
SEVERITY:- ABNORMAL ECG - ATRIAL-PACED COMPLEXES VENTRICULAR BIGEMINY NONSPECIFIC INTRAVENTRICULAR CONDUCTION DELAY CONSIDER ANTEROSEPTAL INFARCT BORDERLINE ST DEPRESSION, DIFFUSE LEADS : Confirmed by: Avelino Murillo MD 21-Nov-2016 21:19:04
[2016-11-21] MEDS ORDERED: FENTANYL CITRATE INJ/PF 100 MCG/2 ML AMPUL IV PRN ×3 (22:09)
[2016-11-21] MEDS ORDERED: DIPHENHYDRAMINE HCL 50 MG/ML VIAL IV PRN (22:09)
[2016-11-21] MEDS ORDERED: PROMETHAZINE HCL INJ 25 MG/1 ML VIAL IV PRN ×2 (22:09)
[2016-11-21] MEDS ORDERED: HYDROMORPHONE HCL INJ/PF 2 MG/ML AMPULE IV PRN (22:48)
[2016-11-21] MEDS ORDERED: ONDANSETRON HCL INJ/PF 4 MG/2 ML SDV IV PRN (22:49)
--- NOTE | 2016-11-21 23:52 | HISTORY AND PHYSICAL E ---
History and Physical NAME: LULU PATEL : 1955 AGE: 61Y ADMITTED: 11/21/2016 ROOM: ED21 CHIEF COMPLAINT: Abdominal pains. HISTORY OF PRESENT ILLNESS: This is a 61-year-old male with multiple medical problems, complaining of right lower quadrant pains Dany night or 2 days ago. The pains persisted and went to the emergency room. He does have some mild nausea. He denies any vomiting. He had a bowel movement yesterday. PAST MEDICAL HISTORY: 1. Atrial fibrillation. 2. CHF. 3. Coronary artery disease. 4. NV. 5. Hypertension, on Diovan. 6. High cholesterol. 7. PVD with right [id number] amputation. 8. Diabetes mellitus on Lantus insulin and NovoLog. PAST SURGICAL HISTORY: 1. Coronary artery bypass x4 in 2004. 2. He had *------* in 2005 and then underwent AICD. He has been on Eliquis but this was stopped 2 weeks ago because of GI bleed. He had a colonoscopy subsequently and no evidence of any apparent abnormality. 4. He also had a right shoulder surgery and right AKA in 2014. SOCIAL HISTORY: He used to smoke 2 packs a day for 17 years until about 1989. He denies alcohol or recreational drug use. ALLERGIES: 1. MORPHINE. 2. DEMEROL. REVIEW OF SYSTEMS: As in HPI. Denies any shortness of breath or chest pains. No hearing or visual problems. No voiding problems. No joint pains. The rest of the systems were reviewed and unremarkable. PHYSICAL EXAMINATION: GENERAL: A well-developed, slightly overweight male, alert and oriented, complaining of abdominal pains. HEENT: Neck is supple, no thyromegaly. LUNGS: Clear. HEART: Regular sinus rhythm. Has an AICD in left chest. ABDOMEN: Soft with tenderness in the right lower quadrant and more in the right suprapubic area. EXTREMITIES: No edema. Right AKA stump healed. DIAGNOSTIC DATA: He had a CT of the abdomen without p.o. or IV contrast and this showed some stranding at the tip of the appendix. His white count is elevated to 14,000 but his creatinine is 2.9 and BUN of 51. He had a previous creatinine in the past month or so reading about 1.7. IMPRESSION: 1. Acute appendicitis. 2. History of coronary artery disease. 3. Atrial fibrillation. 4. Diabetes mellitus. 5. Chronic kidney disease. PLAN: 1. Patient to be hydrated. 2. IV antibiotics. 3. Will try to get medical consultation. 4. Patient for laparoscopic appendectomy, possible open. DICTATING PHYSICIAN: ANGELA LIU M.D. [id number] PHY#: [id number] ID: [id number] JOB#: [id number] ACCT: [id number] cc: >
--- NOTE | 2016-11-22 00:12 | OPERATIVE REPORT E ---
Operative Report NAME: LULU PATEL : 1955 AGE: 61Y DATE OF SURGERY: 11/21/2016 ROOM: 314 PREOPERATIVE DIAGNOSIS: Acute appendicitis. POSTOPERATIVE DIAGNOSIS: Acute appendicitis. OPERATION: Laparoscopic appendectomy. SURGEON: ANGELA LIU M.D. ANESTHESIA: General. INDICATION: This is a 61-year-old male with right-sided abdominal pains for the past 2 days. He had a CAT scan of the abdomen which showed possible acute appendicitis. The patient was tender in the right upper quadrant with white count elevated to about 14,000. The patient was then taken to the OR after cleared by cardiology, care of Dr. Gottlieb, since the patient has multiple cardiac problems. DESCRIPTION OF PROCEDURE: After adequate general anesthesia, the patient was placed in the supine position and the abdomen prepped and draped in the usual sterile fashion. An infraumbilical elliptical incision made and fascia identified and grasped with Zenia clamps divided between Zneia clamps. The abdominal cavity was then entered with Brisa clamp and then with finger dissection. There was adhesion noted, omentum around the umbilical area. Next, a Sean trocar was then inserted and CO2 insufflated up to a pressure of 15 mmHg. Another trocar, 5 mm, placed in the suprapubic and a 12 mm in the left lower quadrant. They were placed under direct vision. There was a lot of thick omentum and adhesion of the cecum to the lateral gutter. Adhesions were lysed with the use of Harmonic edna. The neck of the appendix to the cecum was then identified. The appendix was noted to be going retrocecal and partially identified. A *------* fat on the small bowel was obscuring our view and this was partially divided with Harmonic edna for better visualization of the neck of the appendix. Next, a window was developed at the area of the neck of the appendix. The appendix was elevated and the base of the appendix better visualized and was able to place an Endo-CARLEE. The endo CARLEE was then fired and a small edge including the cecum was further stapled subsequently. The appendix was further dissected with the use of Harmonic edna. The mesoappendix was actually the one that was coagulated and divided with the use of Harmonic edna. This area of the appendix was noted to be dusky and maybe pregangrenous. It was then completely taken off the mesoappendix. This was then placed in an Endobag and removed through the umbilical port. Next, the trocars were then placed back and the stump was inspected and gently irrigated and no evidence of bleeding noted. No other obvious abnormality was noted in the abdominal cavity. There were adhesions of the omentum towards the gallbladder that was previously removed. There was a little adhesion also towards the area of the pelvis. The trocars were then removed and no evidence of bleeding noted. The fascial defect was then closed with [id number] suture using #1 Vicryl and all of the skin incisions closed with 4-0 Vicryl undyed subcuticular closure. Dermabond dressing was used for all the incision sites. Needle, instrument and sponge count were all correct. Estimated blood loss was minimal. The patient tolerated the procedure well and brought to the recovery room in satisfactory condition. DICTATING PHYSICIAN: ANGELA LIU M.D. [id number] PHY#: [id number] ID: [id number] JOB#: [id number] ACCT: [id number] cc:ANGELA LIU M.D. >
[2016-11-22] MEDS: METOPROLOL TARTRATE PF/INJ 5 MG/5 ML SDV IV SCH ×3 (00:47→12:16)
[2016-11-22 03:57] LABS: HEMATOCRIT 35.1 % (37.9-51.0); HEMOGLOBIN 11.7 g/dL (13.5-17.0); MEAN CORPUSCULAR HEMOGLOBIN 27.2 pg (27.0-33.4); MEAN CORPUSCULAR HGB CONC 33.2 g/dL (32.0-36.0); MEAN CORPUSCULAR VOLUME 82 fl (80-97); RED BLOOD COUNT 4.29 10^6/uL (4.35-5.55); RED CELL DISTRIBUTION WIDTH 15.1 % (11.5-14.0); WHITE BLOOD COUNT 14.7 10^3/uL (4.0-10.5)
[2016-11-22 04:11] LABS: BAND NEUTROPHILS % (MANUAL) 1 % (3-5); BASOPHILS % (MANUAL) 0 % (0-2); EOSINOPHILS % (MANUAL) 0 % (0-6); LYMPHOCYTES % (MANUAL) 3 % (13-45); TOTAL CELLS COUNTED 100; TOXIC GRANULATION SLIGHT; TOXIC VACUOLATION PRESENT
[2016-11-22 04:12] LABS: ANISOCYTOSIS SLIGHT
[2016-11-22 04:13] LABS: OVALOCYTES SLIGHT; POIKILOCYTOSIS SLIGHT; POLYCHROMASIA SLIGHT
[2016-11-22 04:14] LABS: PLATELET CLUMPS PRESENT
[2016-11-22 04:24] LABS: ANION GAP 10 (5-19); BLOOD UREA NITROGEN 47 mg/dL (7-20); CALCIUM 8.3 mg/dL (8.4-10.2); CARBON DIOXIDE 21 mmol/L (22-30); CHLORIDE 108 mmol/L (98-107); CREATININE RESULT 2.15 mg/dL (0.52-1.25); GLUCOSE 213 mg/dL (75-110); POTASSIUM 4.2 mmol/L (3.6-5.0); SODIUM 139.3 mmol/L (137-145)
[2016-11-22 04:34] LABS: CREATINE KINASE MB 4.19 ng/mL (<4.55); TROPONIN I 0.077 ng/mL
--- NOTE | 2016-11-22 04:36 | PDOC CONSULTATION ---
Consultation Consult Date: 11/21/16 Attending physician:: ANGELA LIU Consult reason:: Medical management History of Present Illness Admission Date/PCP: 11/21/16 20:49 GERMAIN RIDDLE MD Patient complains of: Right lower quadrant abdominal pain History of Present Illness: LULU PATEL is a 61 year-old male with a history of A. fib, DVT, CKD, AICD, DE, PAD, CHF, CAD, diabetes who presents the ED complaining of right lower quadrant abdominal pain 2 days without known injury. Patient states that his began having sharp pains 2 days ago on [address] home from [place] which has since then become a constant pain. Patient states that the pain increases with movement and touch. Patient has noted a decreased appetite today. Patient states he still urinating normally and having normal bowel movements (although loose). Patient states that he had a GI bleed a 2-3 wks ago and they stopped his Eliquis to perform a colonoscopy. Patient has not been on his Eliquis since then which is been about 2 weeks now. He has not noticed any trouble urinating, burning, urgency, frequency, hematuria. He has not noticed any lumps in his groin or any testicular discomfort. Denies any headache, fever, URI, sore throat, chest pain, palpitations, syncope, cough, shortness of breath, wheeze, dyspnea, urinary retention, dysuria, hematuria, loss of control of bowel or bladder, numbness/tingling, saddle anesthesia, muscle paralysis/weakness, or rash. Patient gives a complicated cardiac history which includes a 4 vessel bypass in [place] in 2004. He also had a defibrillator placed. He claims history of cardiomyopathy with depressed LVEF. His last echocardiogram here in February of last year had shown the EF of about 25% but he claims that he had a most recent echocardiogram at his private snath handle assembler from [facility] which showed an EF of about 45%. This was approximately 3 months ago. He was evaluated by his snath handle assembler about a month ago and was told to come back in 6 months. He Patient denies any recent chest pain, palpitations, syncope, near syncope or defibrillator shocks. Patient is evaluated by surgery service for suspected appendicitis, he was taken emergently to the OR for laparoscopic evaluation. 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 Infectious Medical History: Denies: Clostridium Difficile, Methicillin-Resistant Staph Aureus Past Surgical History Past Surgical History: Reports: Cardiac Catheterization, Cholecystectomy, Coronary Artery Bypass Graft - 4 vessel, Coronary Stent, Internal Defibrillator , Orthopedic Surgery - R shoulder; R AKA; L elbow Denies: Tonsillectomy Social History Information Source: Patient, Emergency Med Personnel, [facility] Records Smoking Status: Former Smoker Frequency of Alcohol Use: None Hx Recreational Drug Use: No Drugs: None Hx Prescription Drug Abuse: No - Advance Directive Resuscitation Status: Full Code Family History Family History: CAD Parental Family History Reviewed: Yes Children Family History Reviewed: Yes Sibling(s) Family History Reviewed.: Yes Medication/Allergy Home Medications: Atorvastatin Calcium [Lipitor 80 mg Tablet] 80 mg PO QHS 10/28/16 Carvedilol [Coreg 6.25 mg Tablet] 6.25 mg PO Q12 10/28/16 Furosemide [Lasix] 40 mg PO Q12 10/28/16 Insulin Aspart [Novolog Flexpen] 20 unit SUBCUT AC 10/28/16 Insulin Glargine,Hum.rec.anlog [Lantus] 50 unit SQ QAM 10/28/16 Insulin Glargine,Hum.rec.anlog [Lantus] 50 unit SQ QPM 10/28/16 Omeprazole 20 mg PO DAILY 10/28/16 Oxycodone HCl/Acetaminophen [Percocet 10-325 mg Tablet] 1 each PO Q6HP PRN 10/28 Valsartan [Diovan] 160 mg PO DAILY 10/28/16 Clopidogrel Bisulfate [Plavix 75 mg Tablet] 75 mg PO DAILY #30 tablet 10/29/16 Allergies/Adverse Reactions: meperidine HCl [From Demerol] Allergy (Unknown, Verified 10/27/16 17:45) n/v propoxyphene napsylate [From Darvocet-N 100] Allergy (Unknown, Verified 17:45) exenatide [From Byetta] Allergy (Verified 10/27/16 17:45) morphine [Morphine] Allergy (Verified 10/27/16 17:45) n/v Review of Systems Constitutional: ABSENT: chills, fever(s), headache(s), weight gain, weight loss Eyes: ABSENT: visual disturbances Ears: ABSENT: hearing changes Cardiovascular: ABSENT: chest pain, dyspnea on exertion, edema, orthropnea, palpitations Respiratory: ABSENT: cough, hemoptysis Gastrointestinal: ABSENT: abdominal pain, constipation, diarrhea, hematemesis, hematochezia, nausea, vomiting Genitourinary: ABSENT: dysuria, hematuria Musculoskeletal: ABSENT: joint swelling Integumentary: ABSENT: rash, wounds Neurological: ABSENT: abnormal gait, abnormal speech, confusion, dizziness, focal weakness, syncope Psychiatric: ABSENT: anxiety, depression, homidical ideation, suicidal ideation Endocrine: ABSENT: cold intolerance, heat intolerance, polydipsia, polyuria Hematologic/Lymphatic: ABSENT: easy bleeding, easy bruising Physical Exam Vital Signs: Temp Pulse Resp BP Pulse Ox 97.5 F 67 20 123/50 L 97 11/22/16 00:10 11/22/16 00:15 11/22/16 00:10 11/22/16 00:10 11/22/16 00:10 Intake & Output 11/20/16 11/21/16 11/22/16 11:59 11:59 11:59 Intake Total 1550 Output Total 320 Balance 1230 General appearance: PRESENT: mild distress, obese, well-developed, well- nourished Head exam: PRESENT: atraumatic, normocephalic Eye exam: PRESENT: conjunctiva pink, EOMI, PERRLA. ABSENT: scleral icterus Ear exam: PRESENT: normal external ear exam Mouth exam: PRESENT: moist, tongue midline Neck exam: ABSENT: carotid bruit, JVD, lymphadenopathy, thyromegaly Respiratory exam: PRESENT: clear to auscultation jacky. ABSENT: rales, rhonchi, wheezes Cardiovascular exam: PRESENT: RRR. ABSENT: diastolic murmur, rubs, systolic murmur Pulses: PRESENT: normal dorsalis pedis pul Vascular exam: PRESENT: normal capillary refill GI/Abdominal exam: PRESENT: diminished bowel sounds, distended, soft, tenderness - Right lower quadrant. ABSENT: guarding, mass, organolmegaly, rebound Rectal exam: PRESENT: deferred Extremities exam: PRESENT: full ROM. ABSENT: calf tenderness, clubbing, pedal edema Neurological exam: PRESENT: alert, awake, oriented to person, oriented to place , oriented to time, oriented to situation, CN II-XII grossly intact. ABSENT: motor sensory deficit Psychiatric exam: PRESENT: appropriate affect, normal mood. ABSENT: homicidal ideation, suicidal ideation Skin exam: PRESENT: dry, intact, warm. ABSENT: cyanosis, rash Results Laboratory Results: 11/22/16 03:48 11/22/16 03:48 WBC 14.7 H RBC 4.29 L Hgb 11.7 L Hct 35.1 L MCV 82 MCH 27.2 MCHC 33.2 RDW 15.1 H Plt Count 196 Seg Neutrophils % Not Reportable Lymphocytes % Not Reportable Monocytes % Not Reportable Eosinophils % Not Reportable Basophils % Not Reportable Absolute Neutrophils Not Reportable Absolute Lymphocytes Not Reportable Absolute Monocytes Not Reportable Absolute Eosinophils Not Reportable Absolute Basophils Not Reportable 11/22/16 03:48 Creatine Kinase 199 H Impressions: Abdomen/Pelvis CT 11/21/16 18:33 IMPRESSION: Mild stranding in the mid mesentery adjacent to the tip of the appendix. Normal caliber. No fluid collection or free air. Assessment & Plan - Diagnosis (1) Acute appendicitis Qualifiers: Acute appendicitis type: unspecified acute appendicitis type Qualified Code(s): K35.80 - Unspecified acute appendicitis Is this a current diagnosis for this admission?: YesPlan: Defer to surgery and anesthesia (2) Acute on chronic systolic heart failure Is this a current diagnosis for this admission?: YesPlan: Currently appears compensated, continue perioperative beta-blockers IV, avoid volume overload otherwise defer to cardiology. (3) Diabetes mellitus Qualifiers: Diabetes mellitus type: type 2 Diabetes mellitus complication status: with unspecified complications Diabetes mellitus fpc insulin use: unspecified fpc insulin use status Qualified Code(s): E11.8 - Type 2 diabetes mellitus with unspecified complications; Z79.4 - lobsterman (current) use of insulin Is this a current diagnosis for this admission?: YesPlan: Hold oral hypoglycemics. Initiate sliding scale insulin every 6 initiate sliding scale q. before meals and at bedtime with long-acting insulin when tolerating p.o. (4) Atrial fibrillation Qualifiers: Atrial fibrillation type: unspecified Qualified Code(s): I48.91 - Unspecified atrial fibrillation Is this a current diagnosis for this admission?: Yes (5) CKD (chronic kidney disease), stage III Is this a current diagnosis for this admission?: YesPlan: Avoid nephrotoxic meds and doses reevaluate chemistry in the a.m. - Time Time Spent: 30 to 50 Minutes
[2016-11-22] MEDS: OXYCODONE-ACETAMINOPHEN 5-325 MG TABLET PO PRN ×2 (04:50→09:10)
[2016-11-22] MEDS ORDERED: PIPERACILLIN/TAZOBACTAM 3.375 GM VIAL IV PRN (05:33)
[2016-11-22] MEDS ORDERED: PIPERACILLIN/TAZOBACTAM 2.25 GM VIAL IV ONE (06:29)
[2016-11-22] MEDS: PIPERACILLIN SODIUM/TAZOBACTAM 3.375 GM in NORMAL SALINE 100 ML IV SCH ×2 (07:21→13:30)
--- NOTE | 2016-11-22 07:49 | EKG REPORT ---
SEVERITY:- ABNORMAL ECG - SINUS RHYTHM ATRIAL PREMATURE COMPLEX NONSPECIFIC INTRAVENTRICULAR CONDUCTION DELAY ANTERIOR INFARCT, AGE INDETERMINATE : Confirmed by: Alvaro Gottlieb 22-Nov-2016 07:49:01
--- NOTE | 2016-11-22 08:43 | PDOC PROGRESS REPORT ---
Subjective Progress Note for:: 11/22/16 Subjective:: Patient complaint minimal abdominal pain; has some right groin pain this morning. Tolerated diet and moved his bowels. He is voiding. Physical Exam Vital Signs: Temp Pulse Resp BP Pulse Ox 97.8 F 66 20 136/59 H 98 11/22/16 07:48 11/22/16 07:48 11/22/16 07:48 11/22/16 07:48 11/22/16 07:48 Intake & Output 11/21/16 11/22/16 11/23/16 06:59 06:59 06:59 Intake Total 2300 Output Total 770 Balance 1530 General appearance: PRESENT: no acute distress GI/Abdominal exam: PRESENT: other - abdomen benign; some postoperative tenderness. No peritoneal signs. Incisions covered with skin glue Results Laboratory Results: 11/22/16 03:48 11/22/16 03:48 11/22/16 11/22/16 03:48 03:48 WBC 14.7 H RBC 4.29 L Hgb 11.7 L Hct 35.1 L MCV 82 MCH 27.2 MCHC 33.2 RDW 15.1 H Plt Count 196 Seg Neutrophils % Not Reportable Lymphocytes % Not Reportable Monocytes % Not Reportable Eosinophils % Not Reportable Basophils % Not Reportable Absolute Neutrophils Not Reportable Absolute Lymphocytes Not Reportable Absolute Monocytes Not Reportable Absolute Eosinophils Not Reportable Absolute Basophils Not Reportable Sodium 139.3 Potassium 4.2 Chloride 108 H Carbon Dioxide 21 L Anion Gap 10 BUN 47 H Creatinine 2.15 H Est GFR ( Amer) 38 L Est GFR (Non-Af Amer) 31 L Glucose 213 H Calcium 8.3 L 11/22/16 11/22/16 03:48 03:48 Creatine Kinase 199 H CK-MB (CK-2) 4.19 Troponin I 0.077 Impressions: Abdomen/Pelvis CT 11/21/16 18:33 IMPRESSION: Mild stranding in the mid mesentery adjacent to the tip of the appendix. Normal caliber. No fluid collection or free air. Assessment & Plan - Diagnosis (1) Acute appendicitis Qualifiers: Acute appendicitis type: unspecified acute appendicitis type Qualified Code(s): K35.80 - Unspecified acute appendicitis Is this a current diagnosis for this admission?: YesPlan: Patient is 1 day status post laparoscopic appendectomy, doing well; mild leukocytosis; no complications thus far Recommendations 1. Continue IV antibiotics this morning 2. No indication for further specialty consultation 3. Anticipate discharge home later today; patient is motivated and interested in going home. He has pain medications at home.
[2016-11-22] MEDS ORDERED: CARVEDILOL 6.25 MG TABLET PO SCH (10:00)
[2016-11-22] MEDS ORDERED: CLOPIDOGREL BISULFATE 75 MG TABLET PO SCH (10:00)
[2016-11-22] MEDS ORDERED: ENOXAPARIN SODIUM INJ 40 MG/0.4 ML DISP.SYRIN SUBCUT SCH (10:00)
--- NOTE | 2016-11-22 10:31 | EKG REPORT ---
SEVERITY:- ABNORMAL ECG - SINUS RHYTHM ATRIAL PREMATURE COMPLEX NONSPECIFIC INTRAVENTRICULAR CONDUCTION DELAY ANTERIOR INFARCT, AGE INDETERMINATE : Confirmed on behalf of: Alvaro Gottlieb 22-Nov-2016 10:30:40
[2016-11-22] MEDS ORDERED: (PENDING PHARMACY ID) (Insulin Aspart [Novolog Flexpen] 20 UNIT) SUBCUT SCH (11:00)
[2016-11-22] MEDS ORDERED: INSULIN LISPRO 100 UNIT/ML 3 ML VIAL SUBCUT SCH (11:00)
[2016-11-22] MEDS ORDERED: INSULIN GLARGINE,HUM.REC.ANLOG 1,000 UNIT/10 ML UNIT SUBCUT ONE ×2 (12:55→13:15)
--- NOTE | 2016-11-22 13:04 | PDOC DISCHARGE SUMMARY ---
General - Admit/Disc Date/PCP Admission Date/Primary Care Provider: 11/21/16 20:49 GERMAIN RIDDLE MD Discharge Date: 11/22/16 - Discharge Diagnosis (1) Acute appendicitis Is this a current diagnosis for this admission?: YesSummary: Patient is POD #1 tolerating a normal diabetic, low fat, low sodium diet (2) CKD (chronic kidney disease), stage III Is this a current diagnosis for this admission?: YesSummary: Patient had worsening ELIANA on CKDIII on admission secondary to poor oral intake over the last 2 days (3) Coronary artery disease Is this a current diagnosis for this admission?: YesSummary: Continue home medications (4) Hyperlipidemia Summary: Continue statin (5) Hypertension Summary: Continue current home medications. Patient is normotensive (6) correction current use of anticoagulant therapy Is this a current diagnosis for this admission?: YesSummary: Continue Plavix (7) Peripheral vascular disease Is this a current diagnosis for this admission?: YesSummary: Continue aspirin, plavix and statin (9) Chronic systolic CHF (congestive heart failure), NYHA class 3 Is this a current diagnosis for this admission?: YesSummary: Patient has EF of 25% with ICD/defibrillator in place. He will follow up with his molded goods controls operator at [facility] as scheduled. He appears to be evolumic at the present time - Additional Information Resuscitation Status: Full Code Discharge Diet: Cardiac, Diabetic Discharge Activity: Activity As Tolerated, Balance Activity w/Rest Home Medications: Atorvastatin Calcium [Lipitor 80 mg Tablet] 80 mg PO QHS 10/28/16 Carvedilol [Coreg 6.25 mg Tablet] 6.25 mg PO Q12 10/28/16 Furosemide [Lasix] 40 mg PO Q12 10/28/16 Insulin Aspart [Novolog Flexpen] 20 unit SUBCUT AC 10/28/16 Insulin Glargine,Hum.rec.anlog [Lantus] 50 unit SQ QAM 10/28/16 Insulin Glargine,Hum.rec.anlog [Lantus] 50 unit SQ QPM 10/28/16 Omeprazole 20 mg PO DAILY 10/28/16 Oxycodone HCl/Acetaminophen [Percocet 10-325 mg Tablet] 1 each PO Q6HP PRN 10/28 Valsartan [Diovan] 160 mg PO DAILY 10/28/16 Clopidogrel Bisulfate [Plavix 75 mg Tablet] 75 mg PO DAILY #30 tablet 10/29/16 History of Present Illness Patient complains of: Right lower quadrant abdominal pain History of Present Illness: LULU PATEL is a 61 year-old male with a history of A. fib, DVT, CKD, AICD, NM, PAD, CHF, CAD, diabetes who presents the ED complaining of right lower quadrant abdominal pain 2 days without known injury. Patient states that his began having sharp pains 2 days ago on his drive home from [place] which has since then become a constant pain. Patient states that the pain increases with movement and touch. Patient has noted a decreased appetite today. Patient states he still urinating normally and having normal bowel movements (although loose). Patient states that he had a GI bleed a 2-3 wks ago and they stopped his Eliquis to perform a colonoscopy. Patient has not been on his Eliquis since then which is been about 2 weeks now. He has not noticed any trouble urinating, burning, urgency, frequency, hematuria. He has not noticed any lumps in his groin or any testicular discomfort. Denies any headache, fever, URI, sore throat, chest pain, palpitations, syncope, cough, shortness of breath, wheeze, dyspnea, urinary retention, dysuria, hematuria, loss of control of bowel or bladder, numbness/tingling, saddle anesthesia, muscle paralysis/weakness, or rash. Patient gives a complicated cardiac history which includes a 4 vessel bypass in [place] in 2004. He also had a defibrillator placed. He claims history of cardiomyopathy with depressed LVEF. His last echocardiogram here in February of last year had shown the EF of about 25% but he claims that he had a most recent echocardiogram at his private molded goods controls operator from [facility] which showed an EF of about 45%. This was approximately 3 months ago. He was evaluated by his molded goods controls operator about a month ago and was told to come back in 6 months. He Patient denies any recent chest pain, palpitations, syncope, near syncope or defibrillator shocks. Patient is evaluated by surgery service for suspected appendicitis, he was taken emergently to the OR for laparoscopic evaluation. Hospital Course Hospital Course: Patient was admitted to [facility] on telemetry after appendectomy. His pain was well controlled overnight. His vitals remained stable. Today on POD #1, he his tolerating a regular diet. He is seen by Dr Valencia , general surgery who feels patient is ready for discharge. The patient was able to tolerate a regular diabetic, low sodium diet. Physical Exam Vital Signs: Temp Pulse Resp BP Pulse Ox 97.8 F 72 16 136/59 H 98 11/22/16 07:48 11/22/16 10:14 11/22/16 10:14 11/22/16 07:48 11/22/16 10:14 Intake & Output 11/21/16 11/22/16 11/23/16 06:59 06:59 06:59 Intake Total 2300 Output Total 770 Balance 1530 General appearance: PRESENT: no acute distress, obese, well-developed, well- nourished Head exam: PRESENT: atraumatic, normocephalic Eye exam: PRESENT: conjunctiva pink, EOMI, PERRLA. ABSENT: scleral icterus Ear exam: PRESENT: normal external ear exam Mouth exam: PRESENT: moist, tongue midline Neck exam: PRESENT: full ROM Respiratory exam: PRESENT: clear to auscultation jacky, symmetrical, unlabored. ABSENT: rales, rhonchi, wheezes Cardiovascular exam: PRESENT: irregular rhythm, systolic murmur Pulses: PRESENT: normal carotid pulses, normal radial pulses Vascular exam: PRESENT: normal capillary refill GI/Abdominal exam: PRESENT: normal bowel sounds, soft. ABSENT: distended, guarding, mass, organolmegaly, rebound, tenderness Rectal exam: PRESENT: deferred Extremities exam: PRESENT: full ROM. ABSENT: calf tenderness, clubbing, pedal edema Neurological exam: PRESENT: alert, awake, oriented to person, oriented to place , oriented to time, oriented to situation, abnormal gait, CN II-XII grossly intact, other - Patient. ABSENT: motor sensory deficit Psychiatric exam: PRESENT: appropriate affect, normal mood. ABSENT: homicidal ideation, suicidal ideation Skin exam: PRESENT: dry, intact, warm. ABSENT: cyanosis, rash Results Laboratory Results: 11/22/16 03:48 11/22/16 03:48 11/22/16 11/22/16 03:48 03:48 WBC 14.7 H RBC 4.29 L Hgb 11.7 L Hct 35.1 L MCV 82 MCH 27.2 MCHC 33.2 RDW 15.1 H Plt Count 196 Seg Neutrophils % Not Reportable Lymphocytes % Not Reportable Monocytes % Not Reportable Eosinophils % Not Reportable Basophils % Not Reportable Absolute Neutrophils Not Reportable Absolute Lymphocytes Not Reportable Absolute Monocytes Not Reportable Absolute Eosinophils Not Reportable Absolute Basophils Not Reportable Sodium 139.3 Potassium 4.2 Chloride 108 H Carbon Dioxide 21 L Anion Gap 10 BUN 47 H Creatinine 2.15 H Est GFR ( Amer) 38 L Est GFR (Non-Af Amer) 31 L Glucose 213 H Calcium 8.3 L 11/22/16 11/22/16 03:48 03:48 Creatine Kinase 199 H CK-MB (CK-2) 4.19 Troponin I 0.077 Impressions: Abdomen/Pelvis CT 11/21/16 18:33 IMPRESSION: Mild stranding in the mid mesentery adjacent to the tip of the appendix. Normal caliber. No fluid collection or free air. Qualifiers PATEINT BEING DISCHARGED WITH ANY OF THE FOLLOWING DIAGNOSIS?: No Plan Discharge Plan: Home with a friend Time Spent: Less than 30 Minutes
[2016-11-22 13:06] LABS: CREATINE KINASE MB 4.41 ng/mL (<4.55); TROPONIN I 0.059 ng/mL
[2016-11-22] MEDS ORDERED: HYDROMORPHONE HCL INJ/PF 2 MG/ML AMPULE IV PRN (13:47)
[2016-11-22] MEDS ORDERED: ENALAPRILAT DIHYDRATE INJ/PF 1.25 MG/1 ML SDV IV PRN (13:49)
[2016-11-22 14:18] VITALS: BP 123/50
[2016-11-22] MEDS ORDERED: INSULIN GLARGINE,HUM.REC.ANLOG 1,000 UNIT/10 ML UNIT SUBCUT SCH (18:00)
--- NOTE | 2016-11-22 18:01 | PDOC PROGRESS REPORT ---
Subjective Progress Note for:: 11/22/16 Subjective:: Patient is status post surgery and has done well. He denied any chest pain. His EKG shows sinus rhythm. Physical Exam Vital Signs: Temp Pulse Resp BP Pulse Ox 97.7 F 72 18 123/50 L 96 11/22/16 14:17 11/22/16 14:17 11/22/16 14:17 11/22/16 14:17 11/22/16 14:17 Intake & Output 11/21/16 11/22/16 11/23/16 06:59 06:59 06:59 Intake Total 2300 1080 Output Total 770 925 Balance 1530 155 Exam: GENERAL: well-nourished and in no acute distress. Alert and oriented x3 HEAD: Atraumatic, normocephalic. EYES: Pupils equal round and reactive to light, extraocular movements intact, sclera anicteric, conjunctiva are normal. ENT: TMs normal, nares patent, oropharynx clear without exudates. Moist mucous membranes. No oral ulcerations or bleeding gums noted NECK: supple without lymphadenopathy. Trachea is central. No cervical or axillary lymphadenopathy noted. Carotids are 2+, JVD WNL LUNGS: Respiration seems nonlabored, no significant accessory muscle action noted. Breath sounds clear to auscultation bilaterally and equal noted. No wheezes rales or rhonchi noted. No significant dullness noted on percussion. CHEST: Palpation of the chest wall shows no significant chest wall tenderness. No other significant abnormalities noted. 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 ABDOMEN: Soft, surgical right lower quadrant tenderness appreciated, normoactive bowel sounds. No guarding, no rebound. No rigidity noted . No masses appreciated. EXTREMITIES: Pedal pulses are 1-2+, no calf tenderness noted. No clubbing or cyanosis.trace to 1+ pedal edema noted. 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 NEUROLOGICAL: Focused neurological exam showed no significant neurologic deficit. Normal speech, no focal weakness appreciated. PSYCH: Normal mood, normal affect. Judgment and insight within normal limits. SKIN: No significant ecchymosis, rash, ulcerations or signs of pruritus noted. MUSCULOSKELETAL EXAM: No significant joint swelling noted. Results Laboratory Results: 11/22/16 03:48 11/22/16 03:48 11/22/16 11/22/16 03:48 03:48 WBC 14.7 H RBC 4.29 L Hgb 11.7 L Hct 35.1 L MCV 82 MCH 27.2 MCHC 33.2 RDW 15.1 H Plt Count 196 Seg Neutrophils % Not Reportable Lymphocytes % Not Reportable Monocytes % Not Reportable Eosinophils % Not Reportable Basophils % Not Reportable Absolute Neutrophils Not Reportable Absolute Lymphocytes Not Reportable Absolute Monocytes Not Reportable Absolute Eosinophils Not Reportable Absolute Basophils Not Reportable Sodium 139.3 Potassium 4.2 Chloride 108 H Carbon Dioxide 21 L Anion Gap 10 BUN 47 H Creatinine 2.15 H Est GFR ( Amer) 38 L Est GFR (Non-Af Amer) 31 L Glucose 213 H Calcium 8.3 L 11/22/16 11/22/16 11/22/16 03:48 03:48 12:19 Creatine Kinase 199 H 221 H CK-MB (CK-2) 4.19 Troponin I 0.077 11/22/16 12:19 Creatine Kinase CK-MB (CK-2) 4.41 Troponin I 0.059 EKG Comments: Twelve-lead EKG shows sinus rhythm, no acute ST-T wave changes noted with frequent PVCs Impressions: Abdomen/Pelvis CT 11/21/16 18:33 IMPRESSION: Mild stranding in the mid mesentery adjacent to the tip of the appendix. Normal caliber. No fluid collection or free air. Assessment & Plan - Diagnosis (1) Chronic systolic CHF (congestive heart failure), NYHA class 3 Is this a current diagnosis for this admission?: Yes (2) Acute appendicitis Qualifiers: Acute appendicitis type: unspecified acute appendicitis type Qualified Code(s): K35.80 - Unspecified acute appendicitis Is this a current diagnosis for this admission?: Yes (3) CHF (congestive heart failure) Qualifiers: Congestive heart failure type: unspecified congestive heart failure type Congestive heart failure chronicity: acute on chronic Qualified Code(s ): I50.9 - Heart failure, unspecified Is this a current diagnosis for this admission?: Yes (4) Diabetes mellitus Qualifiers: Diabetes mellitus type: type 2 Diabetes mellitus complication status: with unspecified complications Diabetes mellitus senior care insulin use: unspecified termite control servicer insulin use status Qualified Code(s): E11.8 - Type 2 diabetes mellitus with unspecified complications; Z79.4 - termite control service representative (current) use of insulin Is this a current diagnosis for this admission?: Yes (5) Atrial fibrillation Qualifiers: Atrial fibrillation type: unspecified Qualified Code(s): I48.91 - Unspecified atrial fibrillation Is this a current diagnosis for this admission?: Yes (6) CKD (chronic kidney disease), stage III Is this a current diagnosis for this admission?: Yes (7) Coronary artery disease Qualifiers: Coronary Disease-Associated Artery/Lesion type: [place] artery [place] vs. transplanted heart: [place] heart Associated angina: angina presence unspecified Qualified Code(s): I25.10 - Atherosclerotic heart disease of [place] coronary artery without angina pectoris Is this a current diagnosis for this admission?: Yes (8) Hyperlipidemia Qualifiers: Hyperlipidemia type: unspecified Qualified Code(s): E78.5 - Hyperlipidemia, unspecified (9) Hypertension Qualifiers: Hypertension type: essential hypertension Qualified Code(s): I10 - Essential (primary) hypertension (10) Peripheral vascular disease Is this a current diagnosis for this admission?: Yes - Notes Notes: Postop exam. Patient is postop appendectomy. He has done very well. He has had some food to eat. He can now be placed on his home medications. Congestive heart failure: Currently compensated. Continue his home medications. Diabetes: Recommend good control of blood sugars, and avoid hypo-or hyperglycemia. Atrial fibrillation: Patient noted to have paroxysmal atrial fibrillation which short runs of atrial fibrillation in the ER. Will have low threshold for loading patient with amiodarone bolus and drip protocol should this become a significant problem. Currently patient is maintaining sinus rhythm and is stable except for increased ventricular ectopy. But patient does have a backup ICD. Chronic kidney disease: Patient seems to have stage IV chronic kidney disease. Currently is stable. Coronary artery disease: Patient is currently stable but will continue to follow patient. Dyslipidemia: Recommend high potency statin therapy. Hypertension: Blood pressure under satisfactory control. Resume home medications. PVD: Patient status post amputation on the left lower extremity. Currently stable without any active limb ischemia.. - Time Time with patient: 15-25 minutes - Will sign off. Patient has been stable. Patient advised to follow-up with his primary care furniture maker, primary care physician. Patient was told that he would benefit from a sleep study. Medications reviewed and adjusted accordingly: Yes
[2016-11-22] MEDS ORDERED: ATORVASTATIN CALCIUM 80 MG TABLET PO SCH (22:00)
[2016-11-23] MEDS ORDERED: INSULIN GLARGINE,HUM.REC.ANLOG 1,000 UNIT/10 ML UNIT SUBCUT SCH (08:00)
== END 2016-11-22 14:30 | disposition home or self-care (01) | DRG 342 ==
LOC: ER 16:57 → EH 20:49 → 3W 23:40
PROVIDERS: ATTEND Surgery
PROC: 0DTJ4ZZ Resection of Appendix, Percutaneous Endoscopic Approach (ICD-10-PCS; principal; 2016-11-21 20:45)
DX: K35.80 Unspecified acute appendicitis (principal); I13.0 Hypertensive heart and chronic kidney disease with heart failure and stage 1 through stage 4 chronic kidney disease, or unspecified chronic kidney disease; I50.22 Chronic systolic (congestive) heart failure; N18.3 Chronic kidney disease, stage 3 (moderate); Z79.4 Long term (current) use of insulin; E11.22 Type 2 diabetes mellitus with diabetic chronic kidney disease; I48.91 Unspecified atrial fibrillation; I25.10 Atherosclerotic heart disease of native coronary artery without angina pectoris; E78.5 Hyperlipidemia, unspecified; I73.9 Peripheral vascular disease, unspecified; Z79.01 Long term (current) use of anticoagulants; Z79.899 Other long term (current) drug therapy; Z89.611 Acquired absence of right leg above knee; Z95.1 Presence of aortocoronary bypass graft; Z95.810 Presence of automatic (implantable) cardiac defibrillator; Z87.891 Personal history of nicotine dependence; Z88.8 Allergy status to other drugs, medicaments and biological substances
CPT/HCPCS: 36415; 74176; 80048; 80053; 81001; 82550; 82553; 82962; 83690; 83880; 840; 84484; 85025; 86850; 86900; 86901; 88304; 93005; 93010; 96365; 99285; J0131; J0330; J1100; J1815; J2250; J2405; J2543; J2704; J3010; J3490; J7030

== ENCOUNTER 2016-12-06 09:59 | Emergency (ER) | payer MEDICAID ==
--- NOTE | 2016-12-06 10:18 | ER Document Report ---
ED GI/ - General Mode of Arrival: Medic Information source: Patient, Emergency Med Personnel TRAVEL OUTSIDE OF THE [place] IN LAST 30 DAYS: No - HPI Patient complains to provider of: Abdominal pain, Vomiting Associated symptoms: Other - see above <CHONG HOOVER - Last Filed: 12/06/16 10:25> <ZAKI ARMSTRONG - Last Filed: 12/06/16 15:25> - General Stated Complaint: FLANK PAIN Time Seen by Provider: 12/06/16 10:12 Notes: Patient is a 61 year old male who presents to the ED with complaints of generalized right side abdominal pain. Patient states he has had this pain since his Appendectomy on 11/21/2016. Patient states the pain became worse on (12/02/2016). Patient reports associated nausea and vomiting. He denies constipation but states that is is hard to get the bowel movement out despite the stool being soft. Patient takes Percocet 10 for his pain, he does not take them daily. (CHONG HOOVER) - Related Data Allergies/Adverse Reactions: meperidine HCl [From Demerol] Allergy (Unknown, Verified 10/27/16 17:45) n/v propoxyphene napsylate [From Darvocet-N 100] Allergy (Unknown, Verified 17:45) exenatide [From Byetta] Allergy (Verified 10/27/16 17:45) morphine [Morphine] Allergy (Verified 10/27/16 17:45) n/v Past Medical History - General Information source: Patient - Social History Smoking Status: Never Smoker Family History: CAD - Past Medical History Cardiac Medical History: Reports: Hx Atrial Fibrillation, Hx Congestive Heart Failure, Hx Coronary Artery Disease, Hx Heart Attack, Hx Hypercholesterolemia, Hx Hypertension, Hx Peripheral Vascular Disease Pulmonary Medical History: Reports: Hx Respiratory Failure Neurological Medical History: Reports: Hx Cerebrovascular Accident Endocrine Medical History: Reports: 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 Denies: Hx Peritoneal Dialysis GI Medical History: Reports: Hx Gastroesophageal Reflux Disease Musculoskeltal Medical History: Reports Hx Arthritis Psychiatric Medical History: Reports: Hx Depression - Mild and infrequent; denies suicidal or homicidal ideation. Past Surgical History: Reports: Hx Appendectomy, Hx Cardiac Catheterization, Hx Cardiac Surgery - quad bypass, Hx Cholecystectomy, Hx Coronary Artery Bypass Graft - 4 vessel, Hx Coronary Stent, Hx Internal Defibrillator, Hx Orthopedic Surgery - R shoulder; R AKA; L elbow - Immunizations Hx Diphtheria, Pertussis, Tetanus Vaccination: Yes Hx Pneumococcal Vaccination: 12/17/10 <CHONG HOOVER - Last Filed: 12/06/16 10:25> Review of Systems - Review of Systems Constitutional: No symptoms reported EENT: No symptoms reported Cardiovascular: No symptoms reported Respiratory: No symptoms reported Gastrointestinal: See HPI, Abdominal pain, Nausea, Vomiting. denies: Constipation Genitourinary: No symptoms reported Male Genitourinary: No symptoms reported Musculoskeletal: No symptoms reported Skin: No symptoms reported Hematologic/Lymphatic: No symptoms reported Neurological/Psychological: No symptoms reported <ROSA HOOVERANDRA - Last Filed: 12/06/16 10:25> Physical Exam - General General appearance: Alert, Anxious - HEENT Head: Normocephalic, Atraumatic Eyes: Normal Extraocular movements intact: Yes Pupils: PERRL - Respiratory Respiratory status: No respiratory distress Breath sounds: Normal - Cardiovascular Rhythm: Regular Heart sounds: Normal auscultation Murmur: No - Abdominal Inspection: Other - dull percussion Bowel sounds: Hypoactive Tenderness: Tender - RLQ, right groin, right lateral abdomen - Back Back: Tender - over illeac spine - Extremities General upper extremity: Normal inspection, Normal ROM General lower extremity: Normal ROM, Other - right AKA - Neurological Neuro grossly intact: Yes - Psychological Associated symptoms: Anxious - Skin Skin Temperature: Warm Skin Moisture: Dry Skin Color: Normal <KIKOCHONG - Last Filed: 12/06/16 10:25> - Vital signs Vitals: Resp Pulse Ox 20 98 12/06/16 10:03 12/06/16 10:03 Course - Laboratory Result Diagrams: 12/06/16 10:10 12/06/16 10:10 - Diagnostic Test Radiology reviewed: Image reviewed, Reports reviewed - Oral contrasted CT scan of the abdomen and pelvis does not show any acute abnormality. <ZAKI ARMSTRONG - Last Filed: 12/06/16 15:25> - Vital Signs Vital signs: Temp Pulse Resp BP Pulse Ox 98.5 F 29 H 111/94 H 98 12/06/16 10:05 12/06/16 10:05 12/06/16 10:05 12/06/16 10:05 - Laboratory Laboratory results interpreted by me: 12/06/16 12/06/16 12/06/16 10:10 10:10 12:54 WBC 12.1 H Hgb 13.2 L RDW 14.8 H Absolute Neutrophils 9.4 H Sodium 132.5 L Chloride 92 L BUN 96 H Creatinine 2.67 H Est GFR ( Amer) 30 L Est GFR (Non-Af Amer) 24 L Glucose 280 H Direct Bilirubin 0.7 H Alkaline Phosphatase 153 H Urine Protein 30 H Urine Glucose (UA) 150 H Discharge <CHONG HOOVER - Last Filed: 12/06/16 10:25> <ZAKI ARMSTRONG - Last Filed: 12/06/16 15:25> - Discharge Clinical Impression: Abdominal pain Qualifiers: Abdominal location: right lower quadrant Qualified Code(s): R10.31 - Right lower quadrant pain Condition: Stable Disposition: HOME, SELF-CARE Additional Instructions: Abdominal Pain: There are many causes of abdominal pain. Pain can mean a serious problem requiring surgery (such as appendicitis). It can also be an innocent problem that goes away on its own (such as a viral infection). Often, time must pass to determine the cause of pain. The physician does not feel that hospitalization is necessary, at present. Things may change within the next 24 hours. Call the doctor or come back for re- examination if any problems occur, such as: (1) Pain that becomes more severe, steady, or becomes concentrated in one specific area. Also, pain that is more severe with movement or coughing. (2) Vomiting that persists or becomes more frequent. (3) Blood in the vomitus, urine, or bowel movements. Blood in the stool may have a tarry or black appearance. (4) Shaking chills or fever greater than 100 degrees F. (5) The abdomen becomes more distended or swollen. (6) Bowel movements cease. (7) Failure to improve as expected. //////////////////////////////////////////////////////////////////////////////// //////////////////////////////////////////////////////////////////////////////// ///////////// The CT scan of your abdomen and pelvis did not show any acute process to explain your pain. Your exam suggests much of the pain is coming from the muscles in and around the right hip and right lower quadrant of her abdomen. You should continue your regular medications and pain medications. You should rest and limit walking, or any activity that makes the pain worse. Drink plenty of fluids so you do not become constipated. Follow-up with your doctor, or [place] [facility] if not improving. RETURN TO THE EMERGENCY ROOM IF ANY NEW OR WORSENING SYMPTOMS. Referrals: GERMAIN RIDDLE MD [Primary Care Provider] - Follow up as needed Scribe Attestation: 12/06/16 10:48 I personally performed the services described in the documentation, reviewed and edited the documentation which was dictated to the scribe in my presence, and it accurately records my words and actions. (ZAKI ARMSTRONG) Scribe Documentation - Scribe Written by Niall:: niall Aaron,12/06/2016, 1013 acting as scribe for :: Junito <CHONG HOOVER - Last Filed: 12/06/16 10:25>
[2016-12-06] MEDS ORDERED: FENTANYL CITRATE INJ/PF 100 MCG/2 ML AMPUL IV ONE (10:24)
[2016-12-06] MEDS ORDERED: ONDANSETRON HCL INJ/PF 4 MG/2 ML SDV IV ONE (10:24)
[2016-12-06 10:43] LABS: ABSOLUTE BASOPHILS # (AUTO) 0.1 10^3/uL (0.0-0.2); ABSOLUTE EOSINOPHILS # (AUTO) 0.1 10^3/uL (0.0-0.6); ABSOLUTE LYMPHOCYTES (AUTO) 1.6 10^3/uL (0.5-4.7); ABSOLUTE MONOCYTES (AUTO) 0.9 10^3/uL (0.1-1.4); ABSOLUTE NEUT (AUTO) 9.4 10^3/uL (1.7-8.2); BASOPHILS % (AUTO) 0.5 % (0-2); EOSINOPHILS % (AUTO) 1.2 % (0-6); HEMATOCRIT 38.8 % (37.9-51.0); HEMOGLOBIN 13.2 g/dL (13.5-17.0); HGB HCT DIFFERENCE 0.8; LYMPHOCYTES % (AUTO) 13.4 % (13-45); MEAN CORPUSCULAR HEMOGLOBIN 27.1 pg (27.0-33.4); MEAN CORPUSCULAR VOLUME 80 fl (80-97); MONOCYTES % (AUTO) 7.5 % (3-13); RED BLOOD COUNT 4.86 10^6/uL (4.35-5.55); RED CELL DISTRIBUTION WIDTH 14.8 % (11.5-14.0); SEGMENTED NEUTROPHILS % (AUTO) 77.4 % (42-78); WHITE BLOOD COUNT 12.1 10^3/uL (4.0-10.5)
[2016-12-06 10:49] LABS: ALANINE AMINOTRANSFERASE 27 U/L (21-72); ALBUMIN 4.1 g/dL (3.5-5.0); ALKALINE PHOSPHATASE 153 U/L (38-126); ANION GAP 14 (5-19); ASPARTATE AMINO TRANSFERASE 21 U/L (17-59); BILIRUBIN,DIRECT 0.7 mg/dL (0.0-0.4); BILIRUBIN,TOTAL 1.1 mg/dL (0.2-1.3); BLOOD UREA NITROGEN 96 mg/dL (7-20); CALCIUM 9.3 mg/dL (8.4-10.2); CARBON DIOXIDE 27 mmol/L (22-30); CHLORIDE 92 mmol/L (98-107); CREATININE RESULT 2.67 mg/dL (0.52-1.25); GLUCOSE 280 mg/dL (75-110); POTASSIUM 4.1 mmol/L (3.6-5.0); SODIUM 132.5 mmol/L (137-145); TOTAL PROTEIN 6.8 g/dL (6.3-8.2)
[2016-12-06 13:13] LABS: APPEARANCE,URINE CLEAR; BILIRUBIN,URINE NEGATIVE (NEGATIVE); GLUCOSE, URINE 150 mg/dL (NEGATIVE); KETONES,URINE NEGATIVE (NEGATIVE); LEUKOCYTE ESTERASE,URINE NEGATIVE (NEGATIVE); NITRITE,URINE NEGATIVE (NEGATIVE); PROTEIN,URINE 30 mg/dL (NEGATIVE); URINE SPECIFIC GRAVITY 1.009; UROBILINOGEN,URINE NEGATIVE mg/dL (<2.0)
--- NOTE | 2016-12-06 14:11 | RADIOLOGY REPORT (SQ) ---
EXAM DESCRIPTION: CT ABD/PELVIS ORAL ONLY COMPLETED DATE/TIME: 12/06/2016 1:51 pm REASON FOR STUDY: post appy RLQ abd pain, and groin pain COMPARISON: 11/21/2016 TECHNIQUE: CT scan of the abdomen and pelvis performed with oral contrast and no intravenous contras t. Images reviewed with lung, soft tissue, and bone windows. Reconstructed coronal and sagittal MPR i mages reviewed. All images stored on PACS. All CT scanners at this facility use dose modulation, iterative reconstruction, and/or weight based d osing when appropriate to reduce radiation dose to as low as reasonably achievable (ALARA). [facility]: Dose Right [facility]: CareDose [facility]: Dose Right [facility]: Teradose 4D [facility]: [employer] RADIATION DOSE: Up-to-date CT equipment and radiation dose reduction techniques were employed. CTDIv ol: 17.1 mGy. DLP: 1005 mGy-cm. mGy. LIMITATIONS: None. FINDINGS: LOWER CHEST: No significant findings. No nodules or infiltrates. NON-CONTRASTED LIVER, SPLEEN, ADRENALS: Evaluation limited by lack of IV contrast. No identified sign ificant masses. PANCREAS: No masses. No peripancreatic inflammatory changes. GALLBLADDER: Status post cholecystectomy RIGHT KIDNEY AND URETER: No suspicious masses. Assessment limited by lack of IV contrast. Vascular calcifications are again identified. No hydronephrosis or hydroureter. LEFT KIDNEY AND URETER: No suspicious masses. Assessment limited by lack of IV contrast. Vascular c alcifications are again identified. No hydronephrosis or hydroureter. AORTA AND RETROPERITONEUM: No aneurysm. There is ectasia of the abdominal aorta and iliac vessels wi th vascular calcifications. No retroperitoneal masses or adenopathy. BOWEL AND PERITONEAL CAVITY: No obvious masses or inflammatory changes. No free fluid. APPENDIX: Status post appendectomy. PELVIS, BLADDER, AND ABDOMINAL WALL: No abnormal pelvic masses. No abdominal wall hernias. Bladder un remarkable. BONES: No significant findings. OTHER: Vena cava filter is again identified. IMPRESSION: NO SIGNIFICANT OR ACUTE ABDOMINAL PROCESS. TECHNICAL DOCUMENTATION: JOB ID: [id number] Quality ID # [id number]: Final reports with documentation of one or more dose reduction techniques (e.g., Au tomated exposure control, adjustment of the mA and/or kV according to patient size, use of iterative reconstruction technique) 2010 [employer]- All Rights Reserved
[2016-12-06 16:10] VITALS: BP 123/82
== END 2016-12-06 16:00 | disposition home or self-care (01) ==
LOC: ER 09:59
DX: R10.31 Right lower quadrant pain (principal); R11.2 Nausea with vomiting, unspecified; I48.91 Unspecified atrial fibrillation; I50.9 Heart failure, unspecified; I25.10 Atherosclerotic heart disease of native coronary artery without angina pectoris; E78.00 Pure hypercholesterolemia, unspecified; I11.0 Hypertensive heart disease with heart failure; E11.42 Type 2 diabetes mellitus with diabetic polyneuropathy; I25.2 Old myocardial infarction; Z86.73 Personal history of transient ischemic attack (TIA), and cerebral infarction without residual deficits; Z88.6 Allergy status to analgesic agent; Z95.1 Presence of aortocoronary bypass graft; Z90.49 Acquired absence of other specified parts of digestive tract; Z89.611 Acquired absence of right leg above knee; Z95.810 Presence of automatic (implantable) cardiac defibrillator
CPT/HCPCS: 99284; 96374; 96375; 36415; 85025; 80053; 81001; 74176; J3010; J2405

== ENCOUNTER 2017-08-16 10:53 | Inpatient (IN) | payer MEDICAID ==
[2017-08-16] MEDS ORDERED: ASPIRIN 81 MG TABLET, CHEWABLE PO ONE (11:16)
--- NOTE | 2017-08-16 11:19 | ER Document Report ---
ED General - General Stated Complaint: SHORTNESS OF BREATH Time Seen by Provider: 08/16/17 11:00 Mode of Arrival: Medic Information source: Patient Notes: This is a 62-year-old man with a complicated medical history who is brought into the emergency room because of progressively worsening shortness of breath. Patient was sent in by [facility]. Past medical history: Hypertension, dyslipidemia, coronary artery disease (CABG) , CHF (defibrillator), insulin requiring diabetes, atrial fibrillation, GI bleed , chronic kidney disease. Patient was previously on Eliquis which was discontinued after significant GI bleeding. He is currently on Plavix. TRAVEL OUTSIDE OF THE [place] IN LAST 30 DAYS: No - HPI Onset: Yesterday Onset/Duration: Gradual Quality of pain: No pain Severity: None Pain Level: Denies Associated symptoms: Shortness of breath. denies: Chest pain, Fever Exacerbated by: Movement Relieved by: Remaining still Similar symptoms previously: Yes Recently seen / treated by doctor: Yes - Related Data Allergies/Adverse Reactions: meperidine HCl [From Demerol] Allergy (Unknown, Verified 10/27/16 17:45) n/v propoxyphene napsylate [From Darvocet-N 100] Allergy (Unknown, Verified 17:45) exenatide [From Byetta] Allergy (Verified 10/27/16 17:45) morphine [Morphine] Allergy (Verified 10/27/16 17:45) n/v Penicillins Allergy (Verified 08/16/17 11:50) Past Medical History - General Information source: Patient - Social History Smoking Status: Former Smoker Cigarette use (# per day): No - Quit 2 years ago Chew tobacco use (# tins/day): No Frequency of alcohol use: None Drug Abuse: None Lives with: Alone Family History: CAD Patient has suicidal ideation: No Patient has homicidal ideation: No - Past Medical History Cardiac Medical History: Reports: Hx Atrial Fibrillation, Hx Congestive Heart Failure, Hx Coronary Artery Disease, Hx Heart Attack, Hx Hypercholesterolemia, Hx Hypertension, Hx Peripheral Vascular Disease Pulmonary Medical History: Reports: Hx Respiratory Failure Denies: Hx Asthma, Hx COPD, Hx Tuberculosis Neurological Medical History: Reports: Hx Cerebrovascular Accident. 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 Denies: Hx Diabetes Mellitus Type 1 Renal/ Medical History: Reports: Hx Renal Insufficiency. Denies: Hx Peritoneal Dialysis GI Medical History: Reports: Hx Gastroesophageal Reflux Disease Musculoskeltal Medical History: Reports Hx Arthritis Psychiatric Medical History: Reports: Hx Depression - Mild and infrequent; denies suicidal or homicidal ideation. Past Surgical History: Reports: Hx Appendectomy, Hx Cardiac Catheterization, Hx Cardiac Surgery - quad bypass, Hx Cholecystectomy, Hx Coronary Artery Bypass Graft - 4 vessel, Hx Coronary Stent, Hx Internal Defibrillator, Hx Orthopedic Surgery - R shoulder; R AKA; L elbow. Denies: Hx Tonsillectomy - Immunizations Hx Diphtheria, Pertussis, Tetanus Vaccination: Yes Hx Pneumococcal Vaccination: 12/17/10 Review of Systems - Review of Systems Constitutional: denies: Chills, Fever EENT: No symptoms reported Cardiovascular: See HPI Respiratory: See HPI Gastrointestinal: No symptoms reported Genitourinary: No symptoms reported Male Genitourinary: No symptoms reported Musculoskeletal: No symptoms reported Skin: No symptoms reported Hematologic/Lymphatic: No symptoms reported Neurological/Psychological: No symptoms reported Physical Exam - Vital signs Vitals: Temp Pulse Resp BP Pulse Ox 98.3 F 82 21 H 136/71 H 97 08/16/17 11:15 08/16/17 11:15 08/16/17 11:15 08/16/17 11:15 08/16/17 11:15 Notes: Physical exam: GENERAL: 62-year-old man, alert and oriented 3, no acute distress. Blood pressure is 136/71, pulse is 77, respiratory rate 18, O2 sat 97% on room air. HEAD: Atraumatic, normocephalic. EYES: Pupils equal round and reactive to light, extraocular movements intact, sclera anicteric, conjunctiva are normal. ENT: TMs normal, nares patent, oropharynx clear without exudates. Moist mucous membranes. NECK: Normal range of motion, supple without obvious mass or JVD. LUNGS: Breath sounds clear to auscultation bilaterally and equal. No wheezes rales or rhonchi. HEART: Regular rate and rhythm without murmurs, rubs or gallops. ABDOMEN: Soft, normoactive bowel sounds. No tenderness to palpation. No guarding, no rebound. No masses appreciated. EXTREMITIES: Normal range of motion, no pitting or edema. No clubbing or cyanosis. NEUROLOGICAL: Cranial nerves II through XII grossly intact. Normal speech, moving all extremities. PSYCH: Normal mood, normal affect. SKIN: Warm, Dry, normal turgor, no rashes or lesions noted. Course - Re-evaluation Re-evalutation: 08/16/17 16:12 Note: Patient was given IV insulin to bring down the sugar. He was given nebulizer treatments with some improvement in his symptoms (it is not resolved) . He did have mild troponin elevations but it is not changed significantly. The EKG shows no acute ST elevations. I did discuss the case with Dr. Gottlieb and he will consult on the case. The plan is for admission. - Vital Signs Vital signs: Temp Pulse Resp BP Pulse Ox 98.3 F 82 16 119/69 98 08/16/17 11:15 08/16/17 11:15 08/16/17 16:01 08/16/17 16:01 08/16/17 16:01 - Laboratory Result Diagrams: 08/16/17 11:10 08/16/17 11:10 Laboratory results interpreted by me: 08/16/17 08/16/17 08/16/17 11:10 11:10 11:10 RBC 5.74 H MCV 75 L MCH 24.5 L RDW 17.0 H Monocytes % 13.3 H Sodium 135.1 L Chloride 94 L BUN 48 H Creatinine 1.73 H Est GFR ( Amer) 49 L Est GFR (Non-Af Amer) 40 L Glucose 536 H* POC Glucose Alkaline Phosphatase 142 H NT-Pro-B Natriuret Pep 1360 H Total Protein 6.2 L 08/16/17 08/16/17 08/16/17 11:12 13:06 15:10 RBC MCV MCH RDW Monocytes % Sodium Chloride BUN Creatinine Est GFR ( Amer) Est GFR (Non-Af Amer) Glucose POC Glucose 492 H* 434 H* 353 H Alkaline Phosphatase NT-Pro-B Natriuret Pep Total Protein - Diagnostic Test Radiology reviewed: Image reviewed, Reports reviewed - Stat x-ray shows cardiomegaly - EKG Interpretation by Me Rate: Normal - EKG shows normal sinus rhythm with a ventricular rate of 72, PVC , nonspecific T changes Critical Care Note - Critical Care Note Total time excluding time spent on procedures (mins): 60 Discharge - Discharge Clinical Impression: COPD, CHF, Hyperglycemia Condition: Stable Disposition: ADMITTED INPATIENT Admitting Provider: Hospitalist - Dr. Bolden Unit Admitted: Telemetry
[2017-08-16 11:37] LABS: ABSOLUTE BASOPHILS # (AUTO) 0.1 10^3/uL (0.0-0.2); ABSOLUTE EOSINOPHILS # (AUTO) 0.1 10^3/uL (0.0-0.6); ABSOLUTE LYMPHOCYTES (AUTO) 1.4 10^3/uL (0.5-4.7); ABSOLUTE NEUT (AUTO) 4.7 10^3/uL (1.7-8.2); BASOPHILS % (AUTO) 0.8 % (0-2); EOSINOPHILS % (AUTO) 1.2 % (0-6); HEMATOCRIT 43.1 % (37.9-51.0); LYMPHOCYTES % (AUTO) 19.3 % (13-45); MEAN CORPUSCULAR HEMOGLOBIN 24.5 pg (27.0-33.4); MEAN CORPUSCULAR HGB CONC 32.5 g/dL (32.0-36.0); MEAN CORPUSCULAR VOLUME 75 fl (80-97); MONOCYTES % (AUTO) 13.3 % (3-13); PLATELET COUNT 238 10^3/uL (150-450); RED BLOOD COUNT 5.74 10^6/uL (4.35-5.55); SEGMENTED NEUTROPHILS % (AUTO) 65.4 % (42-78); TOTAL CELLS COUNTED % (AUTO) 100 %; WHITE BLOOD COUNT 7.2 10^3/uL (4.0-10.5)
[2017-08-16] MEDS ORDERED: IPRATROPIUM/ALBUTEROL 0.5-2.5 MG/3 ML AMPUL NEB ONE (11:50)
[2017-08-16] MEDS ORDERED: INSULIN REG, HUMAN 100 UNIT/ML 3 ML VIAL (PYX) IV ONE ×3 (11:51→15:18)
[2017-08-16 11:58] LABS: ALANINE AMINOTRANSFERASE 27 U/L (21-72); ALBUMIN 3.7 g/dL (3.5-5.0); ALKALINE PHOSPHATASE 142 U/L (38-126); ANION GAP 16 (5-19); ASPARTATE AMINO TRANSFERASE 22 U/L (17-59); BILIRUBIN,DIRECT 0.4 mg/dL (0.0-0.4); BILIRUBIN,TOTAL 0.5 mg/dL (0.2-1.3); BLOOD UREA NITROGEN 48 mg/dL (7-20); CALCIUM 9.6 mg/dL (8.4-10.2); CARBON DIOXIDE 25 mmol/L (22-30); CHLORIDE 94 mmol/L (98-107); CREATINE KINASE 137 U/L (55-170); POTASSIUM 4.8 mmol/L (3.6-5.0); SODIUM 135.1 mmol/L (137-145); TOTAL PROTEIN 6.2 g/dL (6.3-8.2)
--- NOTE | 2017-08-16 12:05 | RADIOLOGY REPORT (SQ) ---
EXAM DESCRIPTION: CHEST SINGLE VIEW COMPLETED DATE/TIME: 08/16/2017 11:47 am REASON FOR STUDY: sob COMPARISON: 05/29/2016 EXAM PARAMETERS: NUMBER OF VIEWS: One view. TECHNIQUE: Single frontal radiographic view of the chest acquired. RADIATION DOSE: NA LIMITATIONS: None. FINDINGS: LUNGS AND PLEURA: No opacities, masses or pneumothorax. No pleural effusion. MEDIASTINUM AND HILAR STRUCTURES: No masses. Contour normal. HEART AND VASCULAR STRUCTURES: Heart enlarged. No overt failure. BONES: No acute findings. HARDWARE: Unchanged from previous. OTHER: No other significant finding. IMPRESSION: No acute findings. Cardiac enlargement. TECHNICAL DOCUMENTATION: JOB ID: [id number] [employer]- All Rights Reserved Reading location - IP/workstation name: [email or web address]
[2017-08-16 12:11] LABS: CREATINE KINASE MB 3.72 ng/mL (<4.55)
[2017-08-16 12:19] LABS: GLUCOSE 536 mg/dL (75-110); TROPONIN I 0.105 ng/mL
[2017-08-16] MEDS ORDERED: NORMAL SALINE 250 ML IV ONE (13:14)
[2017-08-16] MEDS ORDERED: ACETAMINOPHEN 325 MG TABLET PO PRN (16:15)
[2017-08-16] MEDS ORDERED: ALBUTEROL SULFATE 0.083% NEB 2.5 MG/3 ML AMPUL NEB PRN (16:15)
[2017-08-16] MEDS ORDERED: OXYCODONE-ACETAMINOPHEN 5-325 MG TABLET PO PRN (16:15)
[2017-08-16] MEDS ORDERED: ONDANSETRON HCL INJ/PF 4 MG/2 ML SDV IV PRN (16:15)
[2017-08-16] MEDS ORDERED: ZOLPIDEM TARTRATE 5 MG TABLET PO PRN (16:15)
[2017-08-16] MEDS ORDERED: DEXTROSE 40% GEL 15 GM TUBE PO PRN ×2 (16:23)
[2017-08-16] MEDS ORDERED: GLUCAGON,HUMAN RECOMB 1 MG INJ IM PRN (16:23)
[2017-08-16] MEDS ORDERED: DEXTROSE 50%-WATER 25 GM/50 ML DISP.SYRIN IV PRN ×2 (16:23)
[2017-08-16] MEDS ORDERED: ENOXAPARIN SODIUM INJ 150 MG/1 ML DISP.SYRIN SUBCUT SCH (17:00)
--- NOTE | 2017-08-16 17:06 | PDOC H&P ---
History of Present Illness Admission Date/PCP: 08/16/17 16:15 Patient complains of: Chest pain and shortness of breath worse this morning History of Present Illness: LULU PATEL is a 62 year old male presents to emergency room complaining of severe chest pain and shortness of breath this morning. Patient states that he has been having shortness of breath and chest pain for the past 6-8 months. He had been going to his PCP and [facility] but despite intervention pain persists. Accordingly he had a nuclear stress test at Dr. Chan (milled rice broker ) around 6 months ago and was told that it was negative. Patient states that when he gets the chest pain he sweats profusely and feels weak. Patient denies fever or chills. Also his diabetes had been out of control and when calling his PCP he has been advised as to take more insulin. Patient also relates that he is keeping up with his diet. In addition patient complains of lower back pain. He admits suffering from back pain and he is PCP had been trying to cut down his pain medicines. He is on a pain management contract. He is has a history of 4 MIs with 11 stents and finally underwent a four-vessel CABG. Patient denies smoking. When evaluated in emergency room BNP was elevated and the hospitalist service was consulted and prompted to admit. ED physician also notified that because of elevated troponin he consulted Dr. Gottlieb who advised the patient to be admitted under our service. 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 Traumatic Medical History: Reports: None Hematology: Reports: None Infectious Medical History: Reports: None Past Surgical History Past Surgical History: Reports: Appendectomy, Cardiac Catheterization, Cholecystectomy, Coronary Artery Bypass Graft - 4 vessel, Coronary Stent, Internal Defibrillator, Orthopedic Surgery - R shoulder; R AKA; L elbow Denies: Tonsillectomy Social History Information Source: Patient Lives with: Family Smoking Status: Unknown if Ever Smoked Frequency of Alcohol Use: None Hx Recreational Drug Use: No Drugs: None Hx Prescription Drug Abuse: No - Advance Directive Resuscitation Status: Full Code Family History Family History: CAD, DM, Hypertension Parental Family History Reviewed: Yes Children Family History Reviewed: Yes Sibling(s) Family History Reviewed.: Yes Medication/Allergy Home Medications: Atorvastatin Calcium [Lipitor 80 mg Tablet] 80 mg PO QHS 10/28/16 Carvedilol [Coreg 6.25 mg Tablet] 6.25 mg PO Q12 10/28/16 Furosemide [Lasix] 40 mg PO Q12 10/28/16 Insulin Aspart [Novolog Flexpen] 20 unit SUBCUT AC 10/28/16 Insulin Glargine,Hum.rec.anlog [Lantus] 50 unit SQ QAM 10/28/16 Insulin Glargine,Hum.rec.anlog [Lantus] 50 unit SQ QPM 10/28/16 Omeprazole 20 mg PO DAILY 10/28/16 Oxycodone HCl/Acetaminophen [Percocet 10-325 mg Tablet] 1 each PO Q6HP PRN 10/28 Valsartan [Diovan] 160 mg PO DAILY 10/28/16 Clopidogrel Bisulfate [Plavix 75 mg Tablet] 75 mg PO DAILY #30 tablet 10/29/16 Allergies/Adverse Reactions: meperidine HCl [From Demerol] Allergy (Unknown, Verified 10/27/16 17:45) n/v propoxyphene napsylate [From Darvocet-N 100] Allergy (Unknown, Verified 17:45) exenatide [From Byetta] Allergy (Verified 10/27/16 17:45) morphine [Morphine] Allergy (Verified 10/27/16 17:45) n/v Penicillins Allergy (Verified 08/16/17 11:50) Review of Systems Constitutional: PRESENT: fatigue, night sweats Eyes: ABSENT: visual disturbances Ears: ABSENT: hearing changes Nose, Mouth, and Throat: ABSENT: mouth pain, sore throat Cardiovascular: PRESENT: chest pain, edema Respiratory: PRESENT: dyspnea Gastrointestinal: ABSENT: abdominal pain, nausea, vomiting Musculoskeletal: PRESENT: back pain Neurological: ABSENT: dizziness, focal weakness Endocrine: PRESENT: polydipsia, polyphagia, polyuria Physical Exam Vital Signs: Temp Pulse Resp BP Pulse Ox 98.3 F 82 20 133/76 H 95 08/16/17 11:15 08/16/17 11:15 08/16/17 15:01 08/16/17 14:39 08/16/17 15:01 General appearance: PRESENT: no acute distress, cooperative, morbidly obese Head exam: PRESENT: atraumatic, normocephalic Eye exam: PRESENT: conjunctiva pink, EOMI, PERRLA Ear exam: PRESENT: normal external ear exam Mouth exam: PRESENT: moist Neck exam: PRESENT: full ROM. ABSENT: JVD, lymphadenopathy, tenderness Respiratory exam: PRESENT: clear to auscultation jacky Cardiovascular exam: PRESENT: RRR. ABSENT: diastolic murmur, systolic murmur Vascular exam: PRESENT: normal capillary refill GI/Abdominal exam: PRESENT: normal bowel sounds, soft. ABSENT: tenderness Extremities exam: PRESENT: full ROM - Left lower extremity, +2 edema - Left lower extremity, other - Right BKA noted Musculoskeletal exam: PRESENT: ambulatory Neurological exam: PRESENT: alert, awake, oriented to person, oriented to place , oriented to time, oriented to situation, CN II-XII grossly intact Psychiatric exam: PRESENT: anxious Skin exam: PRESENT: normal color. ABSENT: erythema Results Impressions: Chest X-Ray 08/16/17 11:16 IMPRESSION: No acute findings. Cardiac enlargement. Assessment & Plan - Diagnosis (1) CHF (congestive heart failure) Qualifiers: Heart failure type: combined systolic and diastolic Heart failure chronicity: acute on chronic Qualified Code(s): I50.43 - Acute on chronic combined systolic (congestive) and diastolic (congestive) heart failure Is this a current diagnosis for this admission?: Yes Plan: Patient will be placed on Lasix 60 mg IV every 12 hours. 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 Patient to be placed on Lantus 30 units subcu every 12 hours. To consult dietitian for diabetes education (4) Pulmonary hypertension Is this a current diagnosis for this admission?: Yes Plan: As per echocardiogram back in 2016 status evidence of pulmonary hypertension which could relate due to a failing mitral valve versus sleep apnea versus obesity or multifactorial. Patient will be placed on Lasix IV and CPAP (5) Mitral valve regurgitation Qualifiers: Cardiac valve disease etiology: etiology unspecified Qualified Code(s): I34.0 - Nonrheumatic mitral (valve) insufficiency Is this a current diagnosis for this admission?: Yes Plan: To start diuresis (6) Morbid obesity Is this a current diagnosis for this admission?: Yes Plan: Consult dietitian (7) Ischemic cardiomyopathy Is this a current diagnosis for this admission?: Yes Plan: According to patient he has been evaluated through a nuclear stress test around 6-8 months ago and was told that it was negative. At this point in time is leaning more toward chronic angina. Consult cardiology (8) Chronic pain Qualifiers: Chronic pain type: chronic pain syndrome Qualified Code(s): G89.4 - Chronic pain syndrome Is this a current diagnosis for this admission?: Yes Plan: Patient has been suffering from chronic back pain. He is on a pain management contract with his PCP and is somewhat apprehensive about taking any medicines. Accordingly he has been told that if he gets medicines from other providers he may not get his regular medications (9) Chronic kidney disease Qualifiers: Chronic kidney disease stage: stage 3 (moderate) Qualified Code(s): N18.3 - Chronic kidney disease, stage 3 (moderate) Is this a current diagnosis for this admission?: Yes Plan: Will trend - Time Time Spent: 30 to 50 Minutes Medications reviewed and adjusted accordingly: Yes Anticipated discharge: Home Within: within 72 hours - Inpatient Certification Based on my medical assessment, after consideration of the patient's comorbidities, presenting symptoms, or acuity I expect that the services needed warrant INPATIENT care.: Yes I certify that my determination is in accordance with my understanding of Medicare's requirements for reasonable and necessary INPATIENT services [42 CFR 412.3e].: Yes Medical Necessity: Need Close Monitoring Due to Risk of Patient Decompensation, Need For Continuous Telemetry Monitoring
[2017-08-16] MEDS: INSULIN REG, HUMAN 100 UNIT/ML 3 ML VIAL (PYX) SUBCUT PRN ×2 (17:08→21:57)
[2017-08-16] MEDS ORDERED: ENOXAPARIN SODIUM INJ 80 MG/0.8 ML DISP.SYRIN SUBCUT SCH (18:00)
[2017-08-16] MEDS ORDERED: ISOSORBIDE MONONITRATE 30 MG TAB.ER.24H PO SCH (18:00)
[2017-08-16] MEDS: FUROSEMIDE INJ/PF 40 MG/4 ML SDV IV SCH (18:25)
[2017-08-16] MEDS: IPRATROPIUM/ALBUTEROL 0.5-2.5 MG/3 ML AMPUL NEB SCH (19:47)
[2017-08-16] MEDS ORDERED: CARVEDILOL 6.25 MG TABLET PO SCH (22:00)
[2017-08-16] MEDS ORDERED: HEPARIN SOD (PORCINE) 5,000 UNIT/ML 1 ML SYRINGE SUBCUT SCH (22:00)
[2017-08-16] MEDS ORDERED: ATORVASTATIN CALCIUM 80 MG TABLET PO SCH (22:00)
[2017-08-16] MEDS ORDERED: INSULIN GLARGINE,HUM.REC.ANLOG 300 UNIT/3 ML INSULN.PEN SUBCUT SCH (22:00)
--- NOTE | 2017-08-16 22:29 | EKG REPORT ---
SEVERITY:- ABNORMAL ECG - SINUS RHYTHM VENTRICULAR PREMATURE COMPLEX INCOMPLETE RIGHT BUNDLE BRANCH BLOCK ABNRM R PROG, CONSIDER ASMI OR LEAD PLACEMENT BORDERLINE ST DEPRESSION, LATERAL LEADS : Confirmed by: Alvaro Gottlieb 16-Aug-2017 22:28:40
[2017-08-17] MEDS: INSULIN REG, HUMAN 100 UNIT/ML 3 ML VIAL (PYX) SUBCUT PRN (03:19)
[2017-08-17 05:02] LABS: HEMATOCRIT 41.6 % (37.9-51.0); HEMOGLOBIN 13.5 g/dL (13.5-17.0); MEAN CORPUSCULAR HGB CONC 32.4 g/dL (32.0-36.0); MEAN CORPUSCULAR VOLUME 74 fl (80-97); PLATELET COUNT 168 10^3/uL (150-450); RED BLOOD COUNT 5.63 10^6/uL (4.35-5.55); RED CELL DISTRIBUTION WIDTH 16.6 % (11.5-14.0); WHITE BLOOD COUNT 5.9 10^3/uL (4.0-10.5)
[2017-08-17 05:29] LABS: ANION GAP 14 (5-19); BLOOD UREA NITROGEN 58 mg/dL (7-20); CALCIUM 9.2 mg/dL (8.4-10.2); CARBON DIOXIDE 29 mmol/L (22-30); CHLORIDE 99 mmol/L (98-107); GLUCOSE 221 mg/dL (75-110); POTASSIUM 3.9 mmol/L (3.6-5.0); SODIUM 141.8 mmol/L (137-145)
[2017-08-17] MEDS ORDERED: LANSOPRAZOLE 15 MG TAB.RAP.DR PO SCH (06:00)
[2017-08-17] MEDS: FUROSEMIDE INJ/PF 40 MG/4 ML SDV IV SCH (06:55)
[2017-08-17] MEDS: IPRATROPIUM/ALBUTEROL 0.5-2.5 MG/3 ML AMPUL NEB SCH (08:12)
[2017-08-17 08:39] VITALS: BP 129/70
--- NOTE | 2017-08-17 09:12 | EKG REPORT ---
SEVERITY:- ABNORMAL ECG - ATRIAL-PACED COMPLEXES ALSO SHORT RUNS OF PAT NONSPECIFIC INTRAVENTRICULAR CONDUCTION DELAY CONSIDER ANTEROSEPTAL INFARCT : Confirmed by: Alvaro Gottlieb 17-Aug-2017 09:11:46
[2017-08-17] MEDS ORDERED: ASPIRIN 81 MG TABLET, ENT COATED PO SCH (10:00)
[2017-08-17] MEDS ORDERED: VALSARTAN 160 MG TABLET PO SCH (10:00)
[2017-08-17] MEDS ORDERED: CLOPIDOGREL BISULFATE 75 MG TABLET PO SCH (10:00)
--- NOTE | 2017-08-17 17:52 | PDOC DISCHARGE SUMMARY ---
General - Admit/Disc Date/PCP Admission Date/Primary Care Provider: 08/16/17 16:15 Discharge Date: 08/17/17 - Left AGAINST MEDICAL ADVICE - Discharge Diagnosis (1) CHF (congestive heart failure) Is this a current diagnosis for this admission?: Yes (2) NSTEMI (non-ST elevated myocardial infarction) Is this a current diagnosis for this admission?: Yes (3) Diabetes mellitus Is this a current diagnosis for this admission?: Yes (4) Pulmonary hypertension Is this a current diagnosis for this admission?: Yes (5) Mitral valve regurgitation Is this a current diagnosis for this admission?: Yes (6) Morbid obesity Is this a current diagnosis for this admission?: Yes (7) Ischemic cardiomyopathy Is this a current diagnosis for this admission?: Yes (8) Chronic pain Is this a current diagnosis for this admission?: Yes (9) Chronic kidney disease Is this a current diagnosis for this admission?: Yes - Additional Information Resuscitation Status: Full Code Home Medications: Atorvastatin Calcium [Lipitor 80 mg Tablet] 80 mg PO QHS 10/28/16 Carvedilol [Coreg 6.25 mg Tablet] 6.25 mg PO Q12 10/28/16 Furosemide [Lasix] 40 mg PO Q12 10/28/16 Insulin Aspart [Novolog Flexpen] 20 unit SUBCUT AC 10/28/16 Insulin Glargine,Hum.rec.anlog [Lantus] 50 unit SQ QAM 10/28/16 Insulin Glargine,Hum.rec.anlog [Lantus] 50 unit SQ QPM 10/28/16 Omeprazole 20 mg PO DAILY 10/28/16 Oxycodone HCl/Acetaminophen [Percocet 10-325 mg Tablet] 1 each PO Q6HP PRN 10/28 Valsartan [Diovan] 160 mg PO DAILY 10/28/16 Clopidogrel Bisulfate [Plavix 75 mg Tablet] 75 mg PO DAILY #30 tablet 10/29/16 History of Present Illness History of Present Illness: LULU PATEL is a 62 year old male presented to emergency room complaining of severe chest pain and shortness of breath on the day of presentation. Patient stated that he had been having shortness of breath and chest pain for the past 6-8 months. He had been going to his PCP and tipple tender but despite intervention pain persisted. Accordingly he had a nuclear stress test at Dr. Chan (tipple tender) around 6 months ago and was told that it was negative. Patient stated that when he gets the chest pain he sweats profusely and feels weak. Patient denied fever or chills. Also his diabetes had been out of control and when calling his PCP he had been advised as to take more insulin. Patient also related that he was keeping up with his diet. In addition patient complained of lower back pain. He admit suffering from back pain and his PCP had been trying to cut down his pain medicines. He is on a pain management contract. He has a history of 4 MIs with 11 stents and finally underwent a four-vessel CABG. Patient denied smoking. When evaluated in emergency room BNP was elevated and the hospitalist service was consulted and prompted to admit. ED physician also notified that because of elevated troponin he consulted Dr. Gottlieb who advised the patient to be admitted under our service. Hospital Course Hospital Course: Patient was admitted to telemetry unit. Troponin was trended and remained stable. When rounding patient expressed his dissatisfaction with the overall care. He he stated that he wanted to leave. He complained about the insulin regimen because it was not the same as home. He complained about Dr. Gottlieb. He also was upset because nobody told him about leakage of a heart valve although he was made aware on admission. He was also upset about a nurse telling him that he was admitted because of a heart attack (non-STEMI) and he was not aware of Went over again the reasons for him to be hospitalized and pros and cons offered to patient but still he opted to leave AGAINST MEDICAL ADVICE. Interestingly patient appeared to be improved although could not pursue a physical exam Physical Exam Vital Signs: Temp Pulse Resp BP Pulse Ox 97.8 F 88 18 140/84 H 97 08/17/17 03:11 08/17/17 07:00 08/17/17 03:11 08/17/17 03:11 08/17/17 03:11 Intake & Output 08/16/17 08/17/17 08/18/17 06:59 06:59 06:59 Intake Total 440 Balance 440 Weight 112.1 kg General appearance: PRESENT: no acute distress, morbidly obese Head exam: PRESENT: atraumatic, normocephalic Eye exam: PRESENT: conjunctiva pink, EOMI, PERRLA Neurological exam: PRESENT: alert, awake, oriented to person, oriented to place , oriented to time, oriented to situation, CN II-XII grossly intact Psychiatric exam: PRESENT: anxious Skin exam: PRESENT: intact, normal color Results Laboratory Results: 08/17/17 04:49 08/17/17 04:49 08/17/17 08/17/17 04:49 04:49 WBC 5.9 RBC 5.63 H Hgb 13.5 Hct 41.6 MCV 74 L MCH 24.0 L MCHC 32.4 RDW 16.6 H Plt Count 168 Sodium 141.8 Potassium 3.9 Chloride 99 Carbon Dioxide 29 Anion Gap 14 BUN 58 H Creatinine 1.85 H Est GFR ( Amer) 45 L Est GFR (Non-Af Amer) 37 L Glucose 221 H Calcium 9.2 Magnesium 1.9 08/16/17 22:37 Troponin I 0.125 Impressions: Chest X-Ray 08/16/17 11:16 IMPRESSION: No acute findings. Cardiac enlargement. Qualifiers - * PATIENT BEING DISCHARGED WITH ANY OF THE FOLLOWING DIAGNOSIS: Heart Failure HF Pt being discharged on ACEI for LVEF less than 40%?: Yes HF Pt being discharged on ARBS for LVEF less than 40%?: No Reason(s) for not prescribing ARBS:: Procedure Contraindicated HF Pt with Afib discharged with Warfarin?: No Reason(s) for not prescribing Warfarin:: Procedure Contraindicated HF Pt discharged on evidence-based Beta Toney:: Yes Plan Discharge Plan: Patient left AGAINST MEDICAL ADVICE Time Spent: Less than 30 Minutes
--- NOTE | 2017-08-17 18:38 | PDOC CONSULTATION ---
Consultation Consult Date: 08/16/17 Attending physician:: AAYUSH HARP Consult reason:: Chest pain and shortness of breath History of Present Illness Admission Date/PCP: 08/16/17 16:15 Patient complains of: Chest pain and shortness of breath History of Present Illness: LULU PATEL is a 62 year old male presents to emergency room complaining of severe chest pain and shortness of breath this morning. Patient states that he has been having shortness of breath and chest pain for the past 6-8 months. He had been going to his PCP and bioinformatics engineer but despite intervention pain persists. Accordingly he had a nuclear stress test at Dr. Chan (bioinformatics engineer ) around 6 months ago and was told that it was negative. Patient states that when he gets the chest pain he sweats profusely and feels weak. Patient denies fever or chills. Also his diabetes had been out of control and when calling his PCP he has been advised as to take more insulin. Patient also relates that he is keeping up with his diet. In addition patient complains of lower back pain. He admits suffering from back pain and he is PCP had been trying to cut down his pain medicines. He is on a pain management contract. He is has a history of 4 MIs with 11 stents and finally underwent a four-vessel CABG. Patient denies smoking. When evaluated in emergency room BNP was elevated and the hospitalist service was consulted and prompted to admit. ED physician also notified that because of elevated troponin he consulted Dr. Gottlieb who advised the patient to be admitted under our service. This history obtained by the hospitalist was reviewed and confirmed. Patient normally sees a bioinformatics engineer from [place] and seems to have had some cardiac evaluations. Patient also describes history of waking up short of breath, PND and orthopnea. Patient currently denying any chest pain at this time. His main problem is shortness of breath. 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 Traumatic Medical History: Reports: None Hematology: Reports: None Infectious Medical History: Reports: None Past Surgical History Past Surgical History: Reports: Appendectomy, Cardiac Catheterization, Cholecystectomy, Coronary Artery Bypass Graft - 4 vessel, Coronary Stent, Internal Defibrillator, Orthopedic Surgery - R shoulder; R AKA; L elbow Denies: Tonsillectomy Social History Information Source: Patient Lives with: Alone Smoking Status: Former Smoker Frequency of Alcohol Use: None Hx Recreational Drug Use: No Drugs: None Hx Prescription Drug Abuse: No - Advance Directive Resuscitation Status: Full Code Family History Family History: CAD Parental Family History Reviewed: Yes Children Family History Reviewed: Yes Sibling(s) Family History Reviewed.: Yes Medication/Allergy Home Medications: Atorvastatin Calcium [Lipitor 80 mg Tablet] 80 mg PO QHS 10/28/16 Carvedilol [Coreg 6.25 mg Tablet] 6.25 mg PO Q12 10/28/16 Furosemide [Lasix] 40 mg PO Q12 10/28/16 Insulin Aspart [Novolog Flexpen] 20 unit SUBCUT AC 10/28/16 Insulin Glargine,Hum.rec.anlog [Lantus] 50 unit SQ QAM 10/28/16 Insulin Glargine,Hum.rec.anlog [Lantus] 50 unit SQ QPM 10/28/16 Omeprazole 20 mg PO DAILY 10/28/16 Oxycodone HCl/Acetaminophen [Percocet 10-325 mg Tablet] 1 each PO Q6HP PRN 10/28 Valsartan [Diovan] 160 mg PO DAILY 10/28/16 Clopidogrel Bisulfate [Plavix 75 mg Tablet] 75 mg PO DAILY #30 tablet 10/29/16 Allergies/Adverse Reactions: meperidine HCl [From Demerol] Allergy (Unknown, Verified 10/27/16 17:45) n/v propoxyphene napsylate [From Darvocet-N 100] Allergy (Unknown, Verified 17:45) exenatide [From Byetta] Allergy (Verified 10/27/16 17:45) morphine [Morphine] Allergy (Verified 10/27/16 17:45) n/v Penicillins Allergy (Verified 08/16/17 11:50) Review of Systems Review of Systems: Please see history of present illness and past medical history as wall. Constitutional: No fever or chills reported. Noted fatigue and tiredness. Head : No recent chronic headaches, recent head injury. Eyes: No recent eye pain, diplopia, redness, discharge, acute visual changes. Ears: No recent chronic ear pain, acute hearing loss, ear discharge. Oral cavity: No recent ulcerations, bleeding, oral cavity discomfort. Neck: No recent acute neck pain reported. Hematologic: No recent easy bruising or bleeding. Lymphatic: No recent lymph node enlargement reported. Cardiovascular system review: See history of present illness. Chest pain and shortness of breath as above. Patient is also noted progressive pedal edema. Respiratory system review: No hemoptysis or blood clots in the lungs reported. Mild Shortness of breath on exertion. Describes occasional wheezing. Gastrointestinal system review: Negative for any recent acute hematemesis, melena. Genitourinary system review: No recent acute or chronic hematuria, flank pain, UTI etc. reported. Skin system review: Negative for any recent abnormal bruising, no rash, no pruritus reported. Neurologic: No prior history of strokes, mini strokes, seizure disorder. Psychologic: No history of major psychosis or major depression reported. Musculoskeletal: Minor aches and pains reported. No acute joint swelling reported. 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 Endocrine: No recent polyuria, polydipsia, recent heat or cold intolerance. Physical Exam Vital Signs: Temp Pulse Resp BP Pulse Ox 97.5 F 77 18 100/67 99 08/16/17 20:00 08/16/17 20:00 08/16/17 20:00 08/16/17 20:00 08/16/17 20:00 Intake & Output 08/15/17 08/16/17 08/17/17 06:59 06:59 06:59 Weight 109 kg Exam: GENERAL: well-nourished and in no acute distress. Alert and oriented x3 HEAD: Atraumatic, normocephalic. EYES: Pupils equal round and reactive to light, extraocular movements intact, sclera anicteric, conjunctiva are normal. ENT: TMs normal, nares patent, oropharynx clear without exudates. Moist mucous membranes. No oral ulcerations or bleeding gums noted NECK: supple without lymphadenopathy. Trachea is central. No cervical or axillary lymphadenopathy noted. Carotids are 2+, JVD could not be accurately assessed but is felt to be mildly distended. LUNGS: Respiration seems nonlabored, no significant accessory muscle action noted. Bibasilar fine crackles are noted. Few a scattered wheezes rales or rhonchi noted. No significant dullness noted on percussion. CHEST: Palpation of the chest wall shows no significant chest wall tenderness. HEART: [place] [employer] DETER[employer]ER, No PSH, 1/6 DONNA aortic area, 1/6 byers systolic murmur mitral area, no rubs, no gallops. ABDOMEN: Soft, no significant tenderness appreciated, normoactive bowel sounds. No guarding, no rebound. No rigidity noted . No masses appreciated. EXTREMITIES: Pedal pulses are 1-2+, no calf tenderness noted. No clubbing or cyanosis. 1-2+ left pedal edema noted. Patient has amputation on the right side. NEUROLOGICAL: Focused neurological exam showed no significant neurologic deficit. Normal speech, no focal weakness appreciated. PSYCH: Normal mood, normal affect. Judgment and insight within normal limits. SKIN: No significant ecchymosis, skin is noted to be warm. MUSCULOSKELETAL EXAM: No significant acute joint swelling noted. Above-knee amputation on right side noted. Results EKG Comments: Shows sinus rhythm with frequent APCs, nonprogression of R-wave anterior precordial lead and minor nonspecific ST segment changes. Impressions: Chest X-Ray 08/16/17 11:16 IMPRESSION: No acute findings. Cardiac enlargement. Assessment & Plan - Diagnosis (1) CHF (congestive heart failure) Qualifiers: Heart failure type: combined systolic and diastolic Heart failure chronicity: acute on chronic Qualified Code(s): I50.43 - Acute on chronic combined systolic (congestive) and diastolic (congestive) heart failure Is this a current diagnosis for this admission?: Yes (2) Chest pain Qualifiers: Chest pain type: unspecified Qualified Code(s): R07.9 - Chest pain, unspecified Is this a current diagnosis for this admission?: Yes (3) Mitral valve regurgitation Qualifiers: Cardiac valve disease etiology: etiology unspecified Qualified Code(s): I34.0 - Nonrheumatic mitral (valve) insufficiency Is this a current diagnosis for this admission?: Yes (4) Diabetes mellitus Qualifiers: Diabetes mellitus type: type 2 Diabetes mellitus fci insulin use: with fci use Diabetes mellitus complication status: with hyperglycemia Qualified Code(s): E11.65 - Type 2 diabetes mellitus with hyperglycemia; Z79.4 - terminal operator (current) use of insulin; Z79.4 - terminal operator (current) use of insulin; Z79.4 - [facility] (current) use of insulin; Z79.4 - terminal operator (current ) use of insulin Is this a current diagnosis for this admission?: Yes (5) Troponin I above reference range Is this a current diagnosis for this admission?: Yes (6) Coronary artery disease Qualifiers: Coronary Disease-Associated Artery/Lesion type: unspecified vessel or lesion type [place] vs. transplanted heart: [place] heart Associated angina: angina presence unspecified Qualified Code(s): I25.10 - Atherosclerotic heart disease of [place] coronary artery without angina pectoris Is this a current diagnosis for this admission?: Yes (7) Hyperlipidemia Qualifiers: Hyperlipidemia type: unspecified Qualified Code(s): E78.5 - Hyperlipidemia , unspecified Is this a current diagnosis for this admission?: Yes (8) Hypertension Qualifiers: Hypertension type: essential hypertension Qualified Code(s): I10 - Essential (primary) hypertension Is this a current diagnosis for this admission?: Yes (9) Obesity Qualifiers: Obesity type: unspecified obesity type Obesity classification: unspecified obesity classification Serious obesity comorbidity presence: unspecified whether serious comorbidity present Qualified Code(s): E66.9 - Obesity, unspecified Is this a current diagnosis for this admission?: Yes (10) AICD (automatic cardioverter/defibrillator) present Is this a current diagnosis for this admission?: Yes - Notes Notes: Patient's presents predominantly with symptoms of shortness of breath. He is also noted to have chest pain. Patient has known CAD with status post CABG and multiple stents. Currently chest pain-free. Still has some dyspnea but claims to be better. Patient has significant LV systolic dysfunction and has a ICD in place which he claims his functioning normally. Patient's troponin I is slightly above average range. EKG showing some minor nonspecific ST-T wave changes. At this time treat with IV diuretics, optimization of antianginal regimen. Should patient deteriorate or have recurrent chest pain or significant bump in troponin I recommend transfer to tertiary care especially to [place] where his bioinformatics engineer is. It was felt that patient may have significant sleep apnea and treatment of sleep apnea often reduces cardiovascular event risk. This may need to be addressed if not already addressed. Patient also encouraged in weight loss. Recommend high potency statin therapy, continue beta-sai therapy, consider adding Ranexa therapy. Patient to report any worsening chest pains or any other worsening symptoms to the nurses. - Time Time Spent: 30 to 50 Minutes - CODE STATUS was discussed, patient remains full code. Multiple medical problems were addressed. More than 50% of the time spent coordinating care, discussing management plans with involved caregivers. Management plans discussed with involved personnels. Medical decision making was of moderate to high complexity, patient's has multiple comorbidities. Medications reviewed and adjusted accordingly: Yes
== END 2017-08-17 08:55 | disposition left against medical advice (07) | DRG 280 ==
LOC: ER 10:53 → EH 16:15 → 4W 17:50
PROVIDERS: ADMIT Internal Medicine; ATTEND Internal Medicine
DX: I21.4 Non-ST elevation (NSTEMI) myocardial infarction (principal); I50.43 Acute on chronic combined systolic (congestive) and diastolic (congestive) heart failure; I13.0 Hypertensive heart and chronic kidney disease with heart failure and stage 1 through stage 4 chronic kidney disease, or unspecified chronic kidney disease; I42.9 Cardiomyopathy, unspecified; I25.10 Atherosclerotic heart disease of native coronary artery without angina pectoris; I48.91 Unspecified atrial fibrillation; E11.22 Type 2 diabetes mellitus with diabetic chronic kidney disease; E11.42 Type 2 diabetes mellitus with diabetic polyneuropathy; E11.65 Type 2 diabetes mellitus with hyperglycemia; I34.0 Nonrheumatic mitral (valve) insufficiency; N18.3 Chronic kidney disease, stage 3 (moderate); I27.20 Pulmonary hypertension, unspecified; E66.01 Morbid (severe) obesity due to excess calories; G89.4 Chronic pain syndrome; Z89.611 Acquired absence of right leg above knee; Z95.1 Presence of aortocoronary bypass graft; Z95.5 Presence of coronary angioplasty implant and graft; I25.2 Old myocardial infarction; Z79.01 Long term (current) use of anticoagulants; Z79.4 Long term (current) use of insulin; Z79.899 Other long term (current) drug therapy; Z95.810 Presence of automatic (implantable) cardiac defibrillator
CPT/HCPCS: 36415; 71045; 80048; 80053; 82550; 82553; 82962; 83735; 83880; 84484; 85025; 85027; 93005; 93010; 94640; 94660; 99285; J1650; J1815; J1940; J7050; J7620

== ENCOUNTER 2018-01-05 14:57 | Emergency (ER) | payer MEDICAID ==
[2018-01-05 15:09] VITALS: BP 141/74
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
== END 2018-01-05 16:12 | disposition home or self-care (01) ==
LOC: ER 14:57
DX: S81.802A Unspecified open wound, left lower leg, initial encounter (principal); X58.XXXA Exposure to other specified factors, initial encounter; Z89.512 Acquired absence of left leg below knee; I25.10 Atherosclerotic heart disease of native coronary artery without angina pectoris; I10 Essential (primary) hypertension; E11.9 Type 2 diabetes mellitus without complications
CPT/HCPCS: 99283

== ENCOUNTER 2018-03-18 21:45 | Observation (INO) | payer MEDICAID ==
[2018-03-18 22:09] LABS: ABSOLUTE BASOPHILS # (AUTO) 0.1 10^3/uL (0.0-0.2); ABSOLUTE EOSINOPHILS # (AUTO) 0.1 10^3/uL (0.0-0.6); ABSOLUTE LYMPHOCYTES (AUTO) 1.5 10^3/uL (0.5-4.7); ABSOLUTE MONOCYTES (AUTO) 1.3 10^3/uL (0.1-1.4); ABSOLUTE NEUT (AUTO) 15.3 10^3/uL (1.7-8.2); BASOPHILS % (AUTO) 0.6 % (0-2); EOSINOPHILS % (AUTO) 0.5 % (0-6); HEMATOCRIT 36.4 % (37.9-51.0); HEMOGLOBIN 12.3 g/dL (13.5-17.0); LYMPHOCYTES % (AUTO) 7.9 % (13-45); MEAN CORPUSCULAR HGB CONC 33.8 g/dL (32.0-36.0); MEAN CORPUSCULAR VOLUME 80 fl (80-97); MONOCYTES % (AUTO) 7.2 % (3-13); PLATELET COUNT 289 10^3/uL (150-450); RED BLOOD COUNT 4.55 10^6/uL (4.35-5.55); RED CELL DISTRIBUTION WIDTH 14.1 % (11.5-14.0); SEGMENTED NEUTROPHILS % (AUTO) 83.8 % (42-78); TOTAL CELLS COUNTED % (AUTO) 100 %; WHITE BLOOD COUNT 18.3 10^3/uL (4.0-10.5)
[2018-03-18 22:22] LABS: ALANINE AMINOTRANSFERASE 23 U/L (21-72); ALKALINE PHOSPHATASE 146 U/L (38-126); ANION GAP 15 (5-19); ASPARTATE AMINO TRANSFERASE 30 U/L (17-59); BILIRUBIN,DIRECT 0.3 mg/dL (0.0-0.4); BILIRUBIN,TOTAL 0.7 mg/dL (0.2-1.3); BLOOD UREA NITROGEN 83 mg/dL (7-20); CALCIUM 9.1 mg/dL (8.4-10.2); CARBON DIOXIDE 21 mmol/L (22-30); CHLORIDE 108 mmol/L (98-107); GLUCOSE 87 mg/dL (75-110); POTASSIUM 4.2 mmol/L (3.6-5.0); SODIUM 143.5 mmol/L (137-145); TOTAL PROTEIN 7.5 g/dL (6.3-8.2)
--- NOTE | 2018-03-18 22:29 | EKG REPORT ---
SEVERITY:- ABNORMAL ECG - SINUS RHYTHM ATRIAL PREMATURE COMPLEX LAFB LOW VOLTAGE IN FRONTAL LEADS : Confirmed by: Avelino Murillo MD 18-Mar-2018 22:28:04
[2018-03-18] MEDS ORDERED: NORMAL SALINE 1000 ML 250 ML IV ONE (22:55)
[2018-03-18] MEDS ORDERED: ONDANSETRON HCL INJ/PF 4 MG/2 ML SDV IV ONE (22:55)
[2018-03-18] MEDS ORDERED: LIDOCAINE 5% (700 MG) TRANSDERMAL ADH..PATCH TP ONE (22:56)
--- NOTE | 2018-03-18 23:00 | ER Document Report ---
ED General - General Chief Complaint: Chest Pain Stated Complaint: GENERAL WEAKNESS Time Seen by Provider: 03/18/18 22:02 Notes: Patient is a 63-year-old male with a past medical's coronary artery disease, multiple stents and a CABG in the past, hypertension, peripheral vascular disease status post BKA on the right, presents with multiple complaints. When I initially asked him to bring him into the hospital he states "everything". He states that for the past 72 hours he has had nausea, vomiting and diarrhea with associated abdominal cramping. He also notes that he apparently used his wheelchair to physically move himself for approximately 4 hours on and since that time has had a stabbing pain to the left side of his pectoral muscle. This pain is reproduced by palpation the area and movement of the arms. Nothing seems to improve the pain although he has not tried anything. States this does not feel like when he has had heart attacks in the past. He has not seen his primary doctor regarding any of these concerns. The patient denies any associated shortness of breath or diaphoresis. States he has been taking medications as directed. TRAVEL OUTSIDE OF THE [place] IN LAST 30 DAYS: No - Related Data Allergies/Adverse Reactions: meperidine HCl [From Demerol] Allergy (Unknown, Verified 10/27/16 17:45) n/v propoxyphene napsylate [From Darvocet-N 100] Allergy (Unknown, Verified 17:45) exenatide [From Byetta] Allergy (Verified 10/27/16 17:45) morphine [Morphine] Allergy (Verified 10/27/16 17:45) n/v Penicillins Allergy (Verified 08/16/17 11:50) Past Medical History - General Information source: Patient - Social History Smoking Status: Never Smoker Frequency of alcohol use: None Drug Abuse: None Lives with: Alone Family History: CAD Patient has suicidal ideation: No Patient has homicidal ideation: No - Past Medical History Cardiac Medical History: Reports: Hx Atrial Fibrillation, Hx Congestive Heart Failure, Hx Coronary Artery Disease, Hx Heart Attack, Hx Hypercholesterolemia, Hx Hypertension, Hx Peripheral Vascular Disease Pulmonary Medical History: Reports: Hx Respiratory Failure Denies: Hx Asthma, Hx COPD, Hx Tuberculosis Neurological Medical History: Reports: Hx Cerebrovascular Accident. 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 Denies: Hx Diabetes Mellitus Type 1 Renal/ Medical History: Reports: Hx Renal Insufficiency. Denies: Hx Peritoneal Dialysis GI Medical History: Reports: Hx Gastroesophageal Reflux Disease Musculoskeletal Medical History: Reports Hx Arthritis Psychiatric Medical History: Reports: Hx Depression - Mild and infrequent; denies suicidal or homicidal ideation. Past Surgical History: Reports: Hx Appendectomy, Hx Cardiac Catheterization, Hx Cardiac Surgery - quad bypass, Hx Cholecystectomy, Hx Coronary Artery Bypass Graft - 4 vessel, Hx Coronary Stent, Hx Internal Defibrillator, Hx Orthopedic Surgery - R shoulder; R AKA; L elbow. Denies: Hx Tonsillectomy - Immunizations Hx Diphtheria, Pertussis, Tetanus Vaccination: Yes Hx Pneumococcal Vaccination: 12/17/10 Review of Systems - Review of Systems Notes: Constitutional: Negative for fever. HENT: Negative for sore throat. Eyes: Negative for visual changes. Cardiovascular: Positive for chest pain. Respiratory: Negative for shortness of breath. Gastrointestinal: Positive for abdominal cramping, vomiting and diarrhea Genitourinary: Negative for dysuria. Musculoskeletal: Negative for back pain. Skin: Negative for rash. Neurological: Negative for headaches, weakness or numbness. 10 point ROS negative except as marked above and in HPI. Physical Exam - Vital signs Vitals: Pulse Resp BP Pulse Ox 75 17 139/58 H 95 03/18/18 22:00 03/18/18 22:00 03/18/18 22:00 03/18/18 22:00 Interpretation: Normal Notes: PHYSICAL EXAMINATION: GENERAL: Appears chronically ill but in no acute distress HEAD: Atraumatic, normocephalic. EYES: Pupils equal round and reactive to light, extraocular movements intact, sclera anicteric, conjunctiva are normal. ENT: nares patent, oropharynx clear without exudates. Dry mucous membranes. NECK: Normal range of motion, supple without lymphadenopathy LUNGS: Breath sounds clear to auscultation bilaterally and equal. No wheezes rales or rhonchi. HEART: Regular rate and rhythm without murmurs Chest wall: Pain on palpation of the left mid pectoral muscle ABDOMEN: Soft, mild diffuse tenderness without specific localization, normoactive bowel sounds. No guarding, no rebound. No masses appreciated. EXTREMITIES: Normal range of motion, right BKA NEUROLOGICAL: No focal neurological deficits. Moves all extremities spontaneously and on command. PSYCH: Normal mood, normal affect. SKIN: Warm, Dry, normal turgor, no rashes or lesions noted. Course - Re-evaluation Re-evalutation: 03/18/18 22:59 Patient presents with multiple complaints. His first complaint of chest pain appears to be muscular skeletal in origin however I am concerned as the patient has no ST changes on his EKG that were not present on a previous. He has subtle ST depressions in the lateral leads of approximately quarter millimeter and does have a troponin elevation at 0.09 although this is actually slightly lower than he has been multiple times in the past. Notably, EKG in August did show similar changes on EKG and these do not appear to be new review of prior troponin levels reveals that the patient effectively never has a normal range troponin. His renal function is also deteriorated relative to previous with his creatinine trending into the mid 2 range. Have begun gentle fluid resuscitation given the patient's history of CHF requiring AICD placement noting an EF of less than 30%. Will repeat troponin within the next 3 hours. Patient also has a notable leukocytosis and does have some generalized abdominal pain on palpation. Will proceed with CT abdomen pelvis without contrast to further clarify given patient's diffuse abdominal pain and noted leukocytosis. 03/19/18 01:15 Patient's repeat troponin is completely unchanged from prior. Repeat exam remains benign without any focal abdominal tenderness, rebound or guarding. Suspect the patient's chest discomfort is indeed musculoskeletal in origin given the reproducible nature of it both with palpation and movement as well as non-trending troponins and unchanged EKG. I have had to be quite judicious with fluid resuscitation on this patient given his history of congestive heart failure with low ejection fraction. Given his acute on chronic kidney dysfunction, inability to give large fluid boluses, I discussed with the hospitalist who is agreed to admit the patient for monitoring, recheck of creatinine in the morning and rehydration over the evening. - Vital Signs Vital signs: Temp Pulse Resp BP Pulse Ox 99.2 F 77 24 H 134/60 H 97 03/18/18 23:24 03/19/18 01:00 03/19/18 01:00 03/19/18 01:00 03/19/18 01:00 - Laboratory Result Diagrams: 03/18/18 21:59 03/18/18 21:59 Laboratory results interpreted by me: 12/05/0503/18/18 03/18/18 21:59 21:59 22:51 WBC 18.3 H Hgb 12.3 L Hct 36.4 L RDW 14.1 H Seg Neutrophils % 83.8 H Lymphocytes % 7.9 L Absolute Neutrophils 15.3 H Chloride 108 H Carbon Dioxide 21 L BUN 83 H Creatinine 2.23 H Est GFR ( Amer) 36 L Est GFR (Non-Af Amer) 30 L Alkaline Phosphatase 146 H Urine Protein 30 H - EKG Interpretation by Me Additional EKG results interpreted by me: 03/19/18 01:33 Sinus rhythm. Atrially paced rhythm. Rate 74. ST depressions of 1/4 mm in V4 through 6 unchanged from previous. Discharge - Discharge Clinical Impression: Acute kidney injury superimposed on chronic kidney disease, Dehydration, Nausea vomiting and diarrhea, Troponin I above reference range Condition: Fair Disposition: ADMITTED OBSERVATION Admitting Provider: Hospitalist Unit Admitted: Telemetry Referrals: GERMAIN RIDDLE MD [Primary Care Provider] - Follow up as needed
[2018-03-18 23:07] LABS: APPEARANCE,URINE CLEAR; BILIRUBIN,URINE NEGATIVE (NEGATIVE); COLOR,URINE YELLOW; GLUCOSE, URINE NEGATIVE (NEGATIVE); KETONES,URINE NEGATIVE (NEGATIVE); LEUKOCYTE ESTERASE,URINE NEGATIVE (NEGATIVE); NITRITE,URINE NEGATIVE (NEGATIVE); PROTEIN,URINE 30 mg/dL (NEGATIVE); UROBILINOGEN,URINE NEGATIVE mg/dL (<2.0)
--- NOTE | 2018-03-18 23:22 | RADIOLOGY REPORT (SQ) ---
EXAM DESCRIPTION: CT ABDOMEN PELVIS WITHOUT IV CONTRAST COMPLETED DATE/TME: 03/18/2018 22:54 CLINICAL HISTORY: 63 years, Male, lower abdominal pain, leukocytosis COMPARISON: Prior CT 12/06/2016 TECHNIQUE: 337 Images stored on PACS. All CT scanners at this facility use dose modulation, iterative reconstruction, and/or weight based dosing when appropriate to reduce radiation dose to as low as reasonably achievable (ALARA). [facility]: Dose Right [facility]: CareDose [facility]: Dose Right [facility]: Teradose 4D [facility]: [employer] LIMITATIONS: None. FINDINGS: Limited evaluation of the lung bases is unremarkable. Osseous structures are grossly intact. The visualized liver, spleen, adrenal glands, pancreas, kidneys are unremarkable. Status post cholecystectomy. Inferior vena cava filter in place. Atheromatous calcifications are noted. No gross evidence for bowel obstruction. No free air or free fluid. Minimal subcutaneous inflammatory change along the anterior left lower abdomen. Correlate with any recent instrumentation the appendix is not well seen. No pericecal inflammation.. IMPRESSION: Negative for acute intra-abdominal/pelvic process. Minimal subcutaneous inflammatory change along the anterior lower left abdomen. Atheromatous changes. TECHNICAL DOCUMENTATION: Quality ID # 436: Final reports with documentation of one or more dose reduction techniques (e.g., Automated exposure control, adjustment of the mA and/or kV according to patient size, use of iterative reconstruction technique) copyright 2011 [employer]- All Rights Reserved
[2018-03-19] MEDS ORDERED: NORMAL SALINE 1000 ML 1,000 ML IV ONE (01:21)
[2018-03-19] MEDS ORDERED: PROMETHAZINE HCL 25 MG TABLET PO PRN (02:31)
[2018-03-19] MEDS ORDERED: IPRATROPIUM/ALBUTEROL 0.5-2.5 MG/3 ML AMPUL NEB PRN (02:31)
[2018-03-19] MEDS ORDERED: PROMETHAZINE HCL INJ 25 MG/1 ML VIAL IV PRN (02:31)
[2018-03-19] MEDS ORDERED: ACETAMINOPHEN 325 MG TABLET PO PRN (02:31)
[2018-03-19] MEDS ORDERED: MAG HYDROX/AL HYDROX/SIMETH SUSP 30 ML UDCUP PO PRN (02:31)
[2018-03-19] MEDS ORDERED: TEMAZEPAM 15 MG CAPSULE PO PRN (02:31)
[2018-03-19] MEDS ORDERED: OXYCODONE-ACETAMINOPHEN 5-325 MG TABLET PO PRN ×2 (02:35→02:51)
[2018-03-19] MEDS ORDERED: GLUCAGON,HUMAN RECOMB 1 MG INJ IM PRN (02:36)
[2018-03-19] MEDS ORDERED: INSULIN LISPRO 100 UNIT/ML 3 ML VIAL SUBCUT PRN (02:36)
[2018-03-19] MEDS ORDERED: DEXTROSE 40% GEL 15 GM TUBE PO PRN ×2 (02:36)
[2018-03-19] MEDS ORDERED: DEXTROSE 50%-WATER 25 GM/50 ML DISP.SYRIN IV PRN ×2 (02:36)
[2018-03-19] MEDS ORDERED: OXYCODONE HCL IR 5 MG TABLET PO PRN (02:50)
--- NOTE | 2018-03-19 04:12 | PDOC H&P ---
History of Present Illness Admission Date/PCP: 03/19/18 01:42 GERMAIN RIDDLE MD Patient complains of: Pain all over History of Present Illness: LULU PATEL is a 63 year old male with a past medical's coronary artery disease, multiple stents and a CABG in the past, hypertension, peripheral vascular disease status post BKA on the right, presents with multiple complaints. When initially was asked him to bring him into the hospital he states "everything". He states that for the past 72 hours he has had nausea, vomiting and diarrhea with associated abdominal cramping. He also notes that he apparently used his wheelchair to physically move himself for approximately 4 hours on and since that time has had a stabbing pain to the left side of his pectoral muscle. This pain is reproduced by palpation the area and movement of the arms. Nothing seems to improve the pain although he has not tried anything. States this does not feel like when he has had heart attacks in the past. He has not seen his primary doctor regarding any of these concerns. The patient denies any associated shortness of breath or diaphoresis. States he has been taking medications as directed. In the emergency department the patient was found with a BUN of 83 and creatinine 2.23, higher than values on August this year. EKG presents with some ST changes that were not present previously but his symptomatology was more musculoskeletal, 2 troponins were done and they were flat at 0.09. In the degenerative fluid resuscitation given secondary to his history of CHF with EF of 30%. Patient complaining initially of abdominal pain that denies overnight evaluated him, CT abdomen and pelvis without contrast negative for acute, shows some abdominal wall inflammation in the left lower abdomen that is not evident on the physical exam. It was felt safe to keep the patient under observation tonight. Past Medical History Cardiac Medical History: Reports: Atrial Fibrillation, Congestive Heart Failure , Coronary Artery Disease, Myocardial Infarction, Hyperlipidema, Hypertension, Peripheral Vascular Disease Pulmonary Medical History: Reports: Respiratory Failure Denies: Asthma, Chronic Obstructive Pulmonary Disease (COPD), Tuberculosis Neurological Medical History: Denies: Seizures Endocrine Medical History: Reports: Diabetes Mellitus Type 2 - With peripheral neuropathy Denies: Diabetes Mellitus Type 1 Renal/ Medical History: GI Medical History: Reports: Gastroesophageal Reflux Disease Musculoskeltal Medical History: Reports: Arthritis Psychiatric Medical History: Reports: Depression - Mild and infrequent; denies suicidal or homicidal ideation. Past Surgical History Past Surgical History: Reports: Appendectomy, Cardiac Catheterization, Cholecystectomy, Coronary Artery Bypass Graft - 4 vessel, Coronary Stent, Internal Defibrillator, Orthopedic Surgery - R shoulder; R AKA; L elbow Denies: Tonsillectomy Social History Lives with: Alone Smoking Status: Never Smoker Frequency of Alcohol Use: None Hx Recreational Drug Use: No Drugs: None Hx Prescription Drug Abuse: No Family History Family History: CAD Parental Family History Reviewed: Yes Children Family History Reviewed: Yes Sibling(s) Family History Reviewed.: Yes Medication/Allergy Home Medications: Atorvastatin Calcium [Lipitor 80 mg Tablet] 80 mg PO QHS 10/28/16 Carvedilol [Coreg 6.25 mg Tablet] 6.25 mg PO Q12 10/28/16 Furosemide [Lasix] 40 mg PO Q12 10/28/16 Insulin Aspart [Novolog Flexpen] 20 unit SUBCUT AC 10/28/16 Insulin Glargine,Hum.rec.anlog [Lantus] 50 unit SQ QAM 10/28/16 Insulin Glargine,Hum.rec.anlog [Lantus] 50 unit SQ QPM 10/28/16 Omeprazole 20 mg PO DAILY 10/28/16 Oxycodone HCl/Acetaminophen [Percocet 10-325 mg Tablet] 1 each PO Q6HP PRN 10/28 Valsartan [Diovan] 160 mg PO DAILY 10/28/16 Clopidogrel Bisulfate [Plavix 75 mg Tablet] 75 mg PO DAILY #30 tablet 10/29/16 Allergies/Adverse Reactions: meperidine HCl [From Demerol] Allergy (Unknown, Verified 10/27/16 17:45) n/v propoxyphene napsylate [From Darvocet-N 100] Allergy (Unknown, Verified 17:45) exenatide [From Byetta] Allergy (Verified 10/27/16 17:45) morphine [Morphine] Allergy (Verified 10/27/16 17:45) n/v Penicillins Allergy (Verified 08/16/17 11:50) Review of Systems Review of Systems: As outlined in the HPI, all others negative Physical Exam Vital Signs: Temp Pulse Resp BP Pulse Ox 99.2 F 77 24 H 134/60 H 97 03/18/18 23:24 03/19/18 01:00 03/19/18 01:00 03/19/18 01:00 03/19/18 01:00 Additional comments: General appearance: Well-developed, morbid obese, alert and cooperative, and appears to be in no acute distress Head: Normocephalic Eyes: PEERL, EOMI, vision is grossly intact. Ears: External auditory canal and tympanic membranes clear, hearing grossly intact. Nose: No nasal discharge. Throat: Oral cavity and pharynx normal. No inflammation, swelling, exudate or lesions. Neck: Neck supple, nontender without lymphadenopathy, masses or thyromegaly. Cardiac: Normal S1 and S2. No S3, S4 or murmurs. Rhythm is regular. There is no cyanosis or pallor. Extremities are warm and well perfused. Capillary refill is less than 2 seconds. No carotid bruits. Thorax: Reproducible tenderness to palpation over left pectoral area. Lungs: Distant sounds secondary to body habitus without rales, rhonchi, wheezing or diminished breath sounds. Not using accessory muscles. Abdomen: Positive bowel sounds. Soft. Nondistended, nontender. No guarding or rebound. No masses. Hepatosplenomegaly difficult to appreciate secondary to body habitus Extremities: No significant deformity or joint abnormality. Neurological: Cranial nerves II through XII grossly intact. Moves all 4 extremities Skin: Skin normal color, texture and turgor with no lesions or eruptions, warm and dry. Psychiatric: The mental examination revealed the patient was oriented to person , place, and time. The patient was able to demonstrate good judgment on recent , without hallucinations, abnormal affect or abnormal behaviors. Results Laboratory Results: 03/18/18 03/18/18 03/18/18 21:59 21:59 21:59 WBC 18.3 H RBC 4.55 Hgb 12.3 L Hct 36.4 L MCV 80 MCH 27.0 MCHC 33.8 RDW 14.1 H Plt Count 289 Seg Neutrophils % 83.8 H Lymphocytes % 7.9 L Monocytes % 7.2 Eosinophils % 0.5 Basophils % 0.6 Absolute Neutrophils 15.3 H Absolute Lymphocytes 1.5 Absolute Monocytes 1.3 Absolute Eosinophils 0.1 Absolute Basophils 0.1 Sodium 143.5 Potassium 4.2 Chloride 108 H Carbon Dioxide 21 L Anion Gap 15 BUN 83 H Creatinine 2.23 H Est GFR ( Amer) 36 L Est GFR (Non-Af Amer) 30 L Glucose 87 Calcium 9.1 Total Bilirubin 0.7 Direct Bilirubin 0.3 AST 30 ALT 23 Alkaline Phosphatase 146 H Troponin I 0.092 Total Protein 7.5 Albumin 4.0 Lipase 47.0 03/19/18 00:30 WBC RBC Hgb Hct MCV MCH MCHC RDW Plt Count Seg Neutrophils % Lymphocytes % Monocytes % Eosinophils % Basophils % Absolute Neutrophils Absolute Lymphocytes Absolute Monocytes Absolute Eosinophils Absolute Basophils Sodium Potassium Chloride Carbon Dioxide Anion Gap BUN Creatinine Est GFR ( Amer) Est GFR (Non-Af Amer) Glucose Calcium Total Bilirubin Direct Bilirubin AST ALT Alkaline Phosphatase Troponin I 0.092 Total Protein Albumin Lipase Impressions: Abdomen/Pelvis CT 03/18/18 22:54 IMPRESSION: Negative for acute intra-abdominal/pelvic process. Minimal subcutaneous inflammatory change along the anterior lower left abdomen. Atheromatous changes. TECHNICAL DOCUMENTATION: Quality ID # 436: Final reports with documentation of one or more dose reduction techniques (e.g., Automated exposure control, adjustment of the mA and/or kV according to patient size, use of iterative reconstruction technique) copyright 2011 [employer]- All Rights Reserved Assessment & Plan - Diagnosis (1) Acute kidney injury superimposed on chronic kidney disease Is this a current diagnosis for this admission?: Yes Plan: BUN 83 with creatinine of 2.23, May this year BUN was 50 and creatinine 8.85, these acute on CKD stage III likely secondary to patient's nausea, vomiting and diarrhea. Patient has been gently hydrated in the emergency department with 1250 cc of normal saline. We will repeat labs in the morning. No new episode of nausea vomiting or diarrhea in the emergency (2) Dehydration Is this a current diagnosis for this admission?: Yes Plan: Likely secondary to nausea vomiting and diarrhea, patient has been gently hydrated, I am not going to continue with IV fluids as per his ejection fraction is 30%. Patient has been placed on diabetic diet. (3) Troponin I above reference range Is this a current diagnosis for this admission?: Yes Plan: Patient has chronically elevated troponins and in the emergency department 2 of them came back 0.092. No active intervention. (4) Musculoskeletal chest pain Is this a current diagnosis for this admission?: Yes Plan: Patient comes complaining of left thoracic chest pain which is reproducible to palpation, this is likely more musculoskeletal, flat cardiac enzymes x2. Even though EKG is different from prior the repeated one has not changed. (6) Chronic systolic CHF (congestive heart failure), NYHA class 3 Is this a current diagnosis for this admission?: Yes Plan: It seems to be compensated. Continue with home Lasix. (7) Insulin dependent diabetes mellitus Is this a current diagnosis for this admission?: Yes Plan: Accu-Cheks q. before meals and at bedtime, insulin lispro sliding scale and hypoglycemia protocol. Continue with home insulin NovoLog and Lantus. (8) Morbid obesity Is this a current diagnosis for this admission?: Yes Plan: Lifestyle modification. Patient is wheelchair-bound. (9) Pulmonary hypertension Is this a current diagnosis for this admission?: Yes (10) Hypertension Qualifiers: Hypertension type: essential hypertension Qualified Code(s): I10 - Essential (primary) hypertension Is this a current diagnosis for this admission?: Yes Plan: Resume home antihypertensive medications. On carvedilol and Diovan. (11) DVT prophylaxis Is this a current diagnosis for this admission?: Yes Plan: Heparin - Time Time Spent: 50 to 70 Minutes - Plan Summary Plan Summary: Case discussed with patient, agree with plan.
[2018-03-19 06:02] LABS: ABSOLUTE BASOPHILS # (AUTO) 0.1 10^3/uL (0.0-0.2); ABSOLUTE EOSINOPHILS # (AUTO) 0.1 10^3/uL (0.0-0.6); ABSOLUTE LYMPHOCYTES (AUTO) 1.7 10^3/uL (0.5-4.7); ABSOLUTE MONOCYTES (AUTO) 1.1 10^3/uL (0.1-1.4); ABSOLUTE NEUT (AUTO) 11.6 10^3/uL (1.7-8.2); BASOPHILS % (AUTO) 0.4 % (0-2); EOSINOPHILS % (AUTO) 0.8 % (0-6); HEMATOCRIT 34.1 % (37.9-51.0); HEMOGLOBIN 11.6 g/dL (13.5-17.0); LYMPHOCYTES % (AUTO) 11.6 % (13-45); MEAN CORPUSCULAR HEMOGLOBIN 27.2 pg (27.0-33.4); MEAN CORPUSCULAR HGB CONC 33.9 g/dL (32.0-36.0); MEAN CORPUSCULAR VOLUME 80 fl (80-97); MONOCYTES % (AUTO) 7.8 % (3-13); PLATELET COUNT 234 10^3/uL (150-450); RED BLOOD COUNT 4.26 10^6/uL (4.35-5.55); RED CELL DISTRIBUTION WIDTH 14.5 % (11.5-14.0); SEGMENTED NEUTROPHILS % (AUTO) 79.4 % (42-78); TOTAL CELLS COUNTED % (AUTO) 100 %; WHITE BLOOD COUNT 14.6 10^3/uL (4.0-10.5)
[2018-03-19 06:20] LABS: ANION GAP 13 (5-19); BLOOD UREA NITROGEN 81 mg/dL (7-20); CARBON DIOXIDE 22 mmol/L (22-30); CHLORIDE 109 mmol/L (98-107); GLUCOSE 111 mg/dL (75-110); POTASSIUM 4.3 mmol/L (3.6-5.0); SODIUM 143.9 mmol/L (137-145)
[2018-03-19] MEDS: HEPARIN SOD (PORCINE) 5,000 UNIT/ML 1 ML SYRINGE SUBCUT SCH ×3 (06:37→22:01)
[2018-03-19] MEDS: LANSOPRAZOLE 15 MG TAB.RAP.DR PO SCH (06:38)
[2018-03-19] MEDS ORDERED: INSULIN GLARGINE,HUM.REC.ANLOG 1,000 UNIT/10 ML UNIT SUBCUT SCH ×5 (08:00→22:00)
[2018-03-19] MEDS: INSULIN LISPRO 100 UNIT/ML 3 ML VIAL SUBCUT SCH ×3 (09:32→16:49)
[2018-03-19] MEDS: CLOPIDOGREL BISULFATE 75 MG TABLET PO SCH (09:42)
[2018-03-19] MEDS: CARVEDILOL 6.25 MG TABLET PO SCH ×2 (09:42→22:04)
[2018-03-19] MEDS: FUROSEMIDE 40 MG TABLET PO SCH ×2 (09:43→22:05)
[2018-03-19] MEDS ORDERED: VALSARTAN 160 MG TABLET PO SCH (10:00)
[2018-03-19] MEDS: LIDOCAINE 5% (700 MG) TRANSDERMAL ADH..PATCH TP SCH (15:23)
[2018-03-19] MEDS: RINGERS SOLUTION,LACTATED 1,000 ML IV PRN (19:27)
[2018-03-19] MEDS ORDERED: ATORVASTATIN CALCIUM 80 MG TABLET PO SCH (22:00)
[2018-03-20] MEDS: HEPARIN SOD (PORCINE) 5,000 UNIT/ML 1 ML SYRINGE SUBCUT SCH ×2 (05:03→15:17)
[2018-03-20] MEDS: LANSOPRAZOLE 15 MG TAB.RAP.DR PO SCH (05:08)
[2018-03-20] MEDS: RINGERS SOLUTION,LACTATED 1,000 ML IV PRN ×2 (05:09→15:18)
[2018-03-20] MEDS ORDERED: INSULIN GLARGINE,HUM.REC.ANLOG 1,000 UNIT/10 ML UNIT SUBCUT SCH ×2 (08:00)
[2018-03-20] MEDS: INSULIN LISPRO 100 UNIT/ML 3 ML VIAL SUBCUT SCH ×2 (08:12→12:52)
--- NOTE | 2018-03-20 09:13 | Physician Advisory Note ---
Physician Advisor ProgressNote .: Pursuant to the plan for Kushal Austin, I have reviewed the medical record for this patient. Physician Advisor Statement: Medicaid pt, in late 03/18 PM w/mult c/o's. Nice documentation of chronic systolic CHF w/resultant more careful dosing of IVF, & of ELIANA. Please consider documenting, if you agree: 1. "Baseline Cr in August was " [1.73-1.85] - H&P states it was 8.85, which looks like a typo. 2. Medical necessity: if pt not yet stable for d/c this AM, then please document the ongoing acute/persistent clinical reasons, & may consider change to Inpt status. 3. r.e. leukocytosis - Any possible acute bacterial infxn? Thanks! CK
[2018-03-20] MEDS: CLOPIDOGREL BISULFATE 75 MG TABLET PO SCH (09:36)
[2018-03-20] MEDS: FUROSEMIDE 40 MG TABLET PO SCH (09:36)
[2018-03-20] MEDS: CARVEDILOL 6.25 MG TABLET PO SCH (09:37)
[2018-03-20 11:45] LABS: ANION GAP 12 (5-19); BLOOD UREA NITROGEN 75 mg/dL (7-20); CALCIUM 9.1 mg/dL (8.4-10.2); CARBON DIOXIDE 23 mmol/L (22-30); CHLORIDE 109 mmol/L (98-107); GLUCOSE 122 mg/dL (75-110); POTASSIUM 4.4 mmol/L (3.6-5.0); SODIUM 144.1 mmol/L (137-145)
[2018-03-20 12:09] VITALS: BP 146/67
[2018-03-20] MEDS: LIDOCAINE 5% (700 MG) TRANSDERMAL ADH..PATCH TP SCH (15:18)
--- NOTE | 2018-03-26 16:19 | PDOC DISCHARGE SUMMARY ---
General - Admit/Disc Date/PCP Admission Date/Primary Care Provider: 03/19/18 01:42 GERMAIN RIDDLE MD Discharge Date: 03/20/18 - Discharge Diagnosis (1) Acute kidney injury superimposed on chronic kidney disease Is this a current diagnosis for this admission?: Yes (2) Chronic systolic CHF (congestive heart failure), NYHA class 3 Is this a current diagnosis for this admission?: Yes (3) Dehydration Is this a current diagnosis for this admission?: Yes (4) Diabetes mellitus Is this a current diagnosis for this admission?: No (5) Morbid obesity Is this a current diagnosis for this admission?: Yes (6) Musculoskeletal chest pain Is this a current diagnosis for this admission?: Yes (7) Pulmonary hypertension Is this a current diagnosis for this admission?: Yes (8) Troponin I above reference range Is this a current diagnosis for this admission?: Yes (9) Hypertension Is this a current diagnosis for this admission?: Yes - Additional Information Discharge Diet: As Tolerated Discharge Activity: Activity As Tolerated Home Medications: Atorvastatin Calcium [Lipitor 80 mg Tablet] 80 mg PO QHS 10/28/16 Carvedilol [Coreg 6.25 mg Tablet] 6.25 mg PO Q12 10/28/16 Furosemide [Lasix] 80 mg PO Q12 10/28/16 Insulin Aspart [Novolog Flexpen] 20 unit SUBCUT AC 10/28/16 Insulin Glargine,Hum.rec.anlog [Lantus] 70 unit SQ QAM 10/28/16 Insulin Glargine,Hum.rec.anlog [Lantus] 70 unit SQ QPM 10/28/16 Omeprazole 20 mg PO DAILY 10/28/16 Valsartan [Diovan] 160 mg PO DAILY 10/28/16 Clopidogrel Bisulfate [Plavix 75 mg Tablet] 75 mg PO DAILY #30 tablet 10/29/16 History of Present Illness History of Present Illness: LULU PATEL is a 63 year old male past medical history of CAD with multiple stents, status post CABG, hypertension, PVD status post BKA on the right side. Patient presenting with multiple complaints for the last 72 hours. He is stating that he has been having nausea vomiting diarrhea associated with cramping abdominal pain. He stated that he had run out of his medication and he had to physically use his wheelchair to to get to the pharmacy. Took about 4 hours. He states since then he has been having a stabbing chest pain to the left side over the pectoral muscle. Stating this pain does not feel like when he had a heart attack. Patient denies any associated shortness of breath, diaphoresis. In ED he was found to have a creatinine of 2.23 vitals: We discussed from a baseline of. 1.63-3.45 ranging, troponins 0.092 x 2. CTA negative for any acute intra-abdominal or pelvic process. EKG sinus rhythm with PACs, Hospital Course Hospital Course: (1) Acute kidney injury superimposed on chronic kidney disease In ED he was found to have a creatinine of 2.23 vitals: We discussed from a baseline of raning from 1.63-3.45 ranging. He was on normal saline and the following day patient's creatinine went down to 2.17 with normal electrolytes. He was discharged home to follow-up with his lower in supervisor and PCP. (2) Chronic systolic CHF (congestive heart failure), NYHA class 3 Well compensated. Continue diuresis. 2D echo 03/04/2018 left ventricular ejection fraction 25-30%, RSVP 40-50 mmHg. (3) Dehydration Likely secondary to nausea vomiting and diarrhea, patient has been gently hydrated Volume resuscitation guided by volume status and vitals. Vitals: SBP 110-135, temperature 98.3, pulse 67-81, saturating 97% on room air. (4) Diabetes Mellitus Long-acting insulin, sliding scale, pre-meal insulin, hypoglycemia protocol, diabetic diet. Follow-up with PCP. (5) Morbid obesity Lifestyle modification. Patient is wheelchair-bound. (6) Musculoskeletal chest pain Most likely musculoskeletal as per history and physical examination. Troponins negative x2. No EKG changes. On the day of discharge did not have any chest pain. (7) Pulmonary hypertension Likely due to chronic heart failure. Outpatient follow-up with PCP and pulmonary 2D echo 03/04/2018 left ventricular ejection fraction 25-30%, RSVP 40-50 mmHg. (8) Troponin I above reference range Patient has chronically elevated troponins and in the emergency department 2 of them came back 0.092. (9) Hypertension Resume home antihypertensive medications. Systolic blood pressure 110-135. Physical Exam Vital Signs: Temp Pulse Resp BP Pulse Ox 98.3 F 81 18 146/67 H 97 03/20/18 16:36 03/20/18 16:36 03/20/18 16:36 03/20/18 16:36 03/20/18 16:36 General appearance: PRESENT: no acute distress, well-developed, well-nourished Respiratory exam: PRESENT: clear to auscultation jacky. ABSENT: rales, rhonchi, wheezes Cardiovascular exam: PRESENT: RRR, other - Tender to palpation over left pectoral. ABSENT: diastolic murmur, rubs, systolic murmur GI/Abdominal exam: PRESENT: normal bowel sounds, soft. ABSENT: distended, guarding, mass, organolmegaly, rebound, tenderness Results Laboratory Results: 03/19/18 05:50 03/20/18 11:04 Impressions: Abdomen/Pelvis CT 03/18/18 22:54 IMPRESSION: Negative for acute intra-abdominal/pelvic process. Minimal subcutaneous inflammatory change along the anterior lower left abdomen. Atheromatous changes. TECHNICAL DOCUMENTATION: Quality ID # 436: Final reports with documentation of one or more dose reduction techniques (e.g., Automated exposure control, adjustment of the mA and/or kV according to patient size, use of iterative reconstruction technique) copyright 2011 [employer]- All Rights Reserved Qualifiers - * PATIENT BEING DISCHARGED WITH ANY OF THE FOLLOWING DIAGNOSIS: No VTE patient discharged on overlapping Therapy?: Yes
== END 2018-03-20 17:07 | disposition home or self-care (01) ==
LOC: ER 21:45 → EH 03-19 01:42 → 3W 03-19 09:18
PROVIDERS: ADMIT Internal Medicine; ATTEND Internal Medicine
DX: I13.0 Hypertensive heart and chronic kidney disease with heart failure and stage 1 through stage 4 chronic kidney disease, or unspecified chronic kidney disease (principal); I50.22 Chronic systolic (congestive) heart failure; N17.9 Acute kidney failure, unspecified; N18.9 Chronic kidney disease, unspecified; E11.22 Type 2 diabetes mellitus with diabetic chronic kidney disease; E86.0 Dehydration; E66.01 Morbid (severe) obesity due to excess calories; R07.89 Other chest pain; I27.20 Pulmonary hypertension, unspecified; I25.2 Old myocardial infarction; Z68.31 Body mass index [BMI] 31.0-31.9, adult; R79.89 Other specified abnormal findings of blood chemistry; E11.42 Type 2 diabetes mellitus with diabetic polyneuropathy; Z79.899 Other long term (current) drug therapy; Z79.4 Long term (current) use of insulin; Z79.02 Long term (current) use of antithrombotics/antiplatelets; Z95.1 Presence of aortocoronary bypass graft; Z95.5 Presence of coronary angioplasty implant and graft; E11.51 Type 2 diabetes mellitus with diabetic peripheral angiopathy without gangrene; R10.9 Unspecified abdominal pain; R19.7 Diarrhea, unspecified; D72.829 Elevated white blood cell count, unspecified; Z89.511 Acquired absence of right leg below knee; Z99.3 Dependence on wheelchair; Z90.49 Acquired absence of other specified parts of digestive tract; Z60.2 Problems related to living alone; Z95.810 Presence of automatic (implantable) cardiac defibrillator; Z82.49 Family history of ischemic heart disease and other diseases of the circulatory system; Z86.73 Personal history of transient ischemic attack (TIA), and cerebral infarction without residual deficits
CPT/HCPCS: 93005; 99285; 96361; 96374; 36415 ×3; 82962 ×2; 83690; 85025 ×2; 80048 ×2; 80053; 81001; 84484 ×2; 74176; 93010; G0378 ×3; J3490 ×11; J1815 ×4; J2405; J7030 ×2; J7120 ×2

== ENCOUNTER 2018-05-04 09:59 | Emergency (ER) | payer MEDICAID ==
[2018-05-04 10:29] LABS: ABSOLUTE EOSINOPHILS # (AUTO) 0.2 10^3/uL (0.0-0.6); ABSOLUTE LYMPHOCYTES (AUTO) 1.4 10^3/uL (0.5-4.7); ABSOLUTE MONOCYTES (AUTO) 0.7 10^3/uL (0.1-1.4); ABSOLUTE NEUT (AUTO) 5.8 10^3/uL (1.7-8.2); BASOPHILS % (AUTO) 0.4 % (0-2); EOSINOPHILS % (AUTO) 2.7 % (0-6); HEMATOCRIT 38.3 % (37.9-51.0); HEMOGLOBIN 12.8 g/dL (13.5-17.0); LYMPHOCYTES % (AUTO) 17.4 % (13-45); MEAN CORPUSCULAR HEMOGLOBIN 26.5 pg (27.0-33.4); MEAN CORPUSCULAR HGB CONC 33.3 g/dL (32.0-36.0); MEAN CORPUSCULAR VOLUME 80 fl (80-97); PLATELET COUNT 287 10^3/uL (150-450); RED BLOOD COUNT 4.81 10^6/uL (4.35-5.55); RED CELL DISTRIBUTION WIDTH 14.9 % (11.5-14.0); SEGMENTED NEUTROPHILS % (AUTO) 71.5 % (42-78); TOTAL CELLS COUNTED % (AUTO) 100 %; WHITE BLOOD COUNT 8.2 10^3/uL (4.0-10.5)
--- NOTE | 2018-05-04 10:34 | RADIOLOGY REPORT (SQ) ---
EXAM DESCRIPTION: CHEST SINGLE VIEW COMPLETED DATE/TIME: 05/04/2018 10:25 am REASON FOR STUDY: bed 3 db COMPARISON: 04/29/2016. EXAM PARAMETERS: NUMBER OF VIEWS: One view. TECHNIQUE: Single frontal radiographic view of the chest acquired. RADIATION DOSE: NA LIMITATIONS: None. FINDINGS: LUNGS AND PLEURA: No opacities, masses or pneumothorax. No pleural effusion. MEDIASTINUM AND HILAR STRUCTURES: No masses. Contour normal. HEART AND VASCULAR STRUCTURES: Heart upper limits of normal in size. Normal vasculature. BONES: No acute findings. HARDWARE: Sternotomy wires. Defibrillator. OTHER: No other significant finding. IMPRESSION: NO ACUTE RADIOGRAPHIC FINDING IN THE CHEST. TECHNICAL DOCUMENTATION: JOB ID: [id number] [employer]- All Rights Reserved Reading location - IP/workstation name: [email or web address]
[2018-05-04 10:47] LABS: ALANINE AMINOTRANSFERASE 29 U/L (21-72); ALBUMIN 4.3 g/dL (3.5-5.0); ALKALINE PHOSPHATASE 133 U/L (38-126); ANION GAP 8 (5-19); ASPARTATE AMINO TRANSFERASE 26 U/L (17-59); BILIRUBIN,DIRECT 0.2 mg/dL (0.0-0.4); BILIRUBIN,TOTAL 0.4 mg/dL (0.2-1.3); BLOOD UREA NITROGEN 52 mg/dL (7-20); CALCIUM 9.5 mg/dL (8.4-10.2); CARBON DIOXIDE 27 mmol/L (22-30); CHLORIDE 107 mmol/L (98-107); CREATINE KINASE 187 U/L (55-170); GLUCOSE 234 mg/dL (75-110); POTASSIUM 4.5 mmol/L (3.6-5.0); SODIUM 141.9 mmol/L (137-145); TOTAL PROTEIN 6.7 g/dL (6.3-8.2)
[2018-05-04 10:57] LABS: CREATINE KINASE MB 4.58 ng/mL (<4.55)
[2018-05-04 10:59] LABS: TROPONIN I 0.078 ng/mL
[2018-05-04] MEDS ORDERED: IPRATROPIUM/ALBUTEROL 0.5-2.5 MG/3 ML AMPUL NEB ONE (11:24)
--- NOTE | 2018-05-04 11:26 | ER Document Report ---
ED General - General Chief Complaint: Shortness Of Breath Stated Complaint: WEAKNESS Time Seen by Provider: 05/04/18 11:21 TRAVEL OUTSIDE OF THE [place] IN LAST 30 DAYS: No - HPI Notes: Patient is a 63-year-old male that presents to the emergency department for chief complaint of shortness of breath. Patient reports acute onset of shortness of breath that began this morning. He states yesterday evening he did have some slight increase in dyspnea but more significantly today. Patient states that he has talked his primary care provider yesterday about his dyspnea and increased his dose of Lasix from 40 twice daily to 40 3 times daily. He did take 120 mg total Lasix yesterday. He reports some increase in urine output. Patient does also report increased weight gain and peripheral edema. He does not know his EF. He denies chest pain. He reports a dry nonproductive cough as well but denies any fevers or chills. Past Medical History: Stroke, diabetes, congestive heart failure, CKD 3 Past Surgical History: Right AKA, CABG x4 Social History: Denies drugs alcohol and tobacco Family History: Reviewed and noncontributory for presenting illness Allergies: Reviewed, see documented allergy list. REVIEW OF SYSTEMS: CONSTITUTIONAL : No fever No chills No diaphoresis No recent illness EENT: No vision changes No congestion No sore throat CARDIOVASCULAR: No chest pain No palpitations RESPIRATORY: shortness of breath cough difficulty breathing GASTROINTESTINAL: No abdominal pain No nausea No vomiting No diarrhea GENITOURINARY: No dysuria No hematuria No difficulty urinating MUSCULOSKELETAL: No back pain No leg pain No arm pain SKIN: No rashes No lesions LYMPHATIC: No swollen, enlarged glands. NEUROLOGICAL: No lightheadedness No headache No weakness No paresthesias PSYCHIATRIC: No anxiety No depression PHYSICAL EXAMINATION: Vital signs reviewed, nursing noted reviewed. GENERAL: Well-appearing, well-nourished and in no acute distress. HEAD: Atraumatic, normocephalic. EYES: Eyes appear normal, extraocular movements intact, sclera anicteric, conjunctiva are normal. ENT: nares patent, oropharynx clear without exudates. Moist mucous membranes. NECK: Normal range of motion, supple without lymphadenopathy LUNGS: Mild accessory muscle use, no respiratory distress, speaking in full sentences, breath sounds diminished and wheezing to auscultation bilaterally and equal. HEART: Regular rate and rhythm without murmurs ABDOMEN: Protuberant, soft, nontender, normoactive bowel sounds. No rebound, guarding, or rigidity. No masses appreciated. EXTREMITIES: Nontender, good range of motion. right AKA. Left +2 pitting edema NEUROLOGICAL: No focal neurological deficits. Moves all extremities spontaneously Motor and sensory grossly intact on exam. PSYCH: Normal mood, normal affect. SKIN: Warm, Dry, normal turgor, no rashes or lesions noted on exposed skin - Related Data Allergies/Adverse Reactions: meperidine HCl [From Demerol] Allergy (Unknown, Verified 10/27/16 17:45) n/v propoxyphene napsylate [From Darvocet-N 100] Allergy (Unknown, Verified 10/27/16 17:45) exenatide [From Byetta] Allergy (Verified 10/27/16 17:45) morphine [Morphine] Allergy (Verified 10/27/16 17:45) n/v Penicillins Allergy (Verified 08/16/17 11:50) Past Medical History - Social History Smoking Status: Unknown if Ever Smoked Family History: CAD Patient has suicidal ideation: No Patient has homicidal ideation: No - Past Medical History Cardiac Medical History: Reports: Hx Atrial Fibrillation, Hx Congestive Heart Failure, Hx Coronary Artery Disease, Hx Heart Attack, Hx Hypercholesterolemia, Hx Hypertension, Hx Peripheral Vascular Disease Pulmonary Medical History: Reports: Hx Respiratory Failure Denies: Hx Asthma, Hx COPD, Hx Tuberculosis Neurological Medical History: Reports: Hx Cerebrovascular Accident. 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 Denies: Hx Diabetes Mellitus Type 1 Renal/ Medical History: Reports: Hx Renal Insufficiency. Denies: Hx Peritoneal Dialysis GI Medical History: Reports: Hx Gastroesophageal Reflux Disease Musculoskeletal Medical History: Reports Hx Arthritis Psychiatric Medical History: Reports: Hx Depression - Mild and infrequent; denies suicidal or homicidal ideation. Past Surgical History: Reports: Hx Appendectomy, Hx Cardiac Catheterization, Hx Cardiac Surgery - quad bypass, Hx Cholecystectomy, Hx Coronary Artery Bypass Graft - 4 vessel, Hx Coronary Stent, Hx Internal Defibrillator, Hx Orthopedic Surgery - R shoulder; R AKA; L elbow. Denies: Hx Tonsillectomy - Immunizations Hx Diphtheria, Pertussis, Tetanus Vaccination: Yes Hx Pneumococcal Vaccination: 12/17/10 Physical Exam - Vital signs Vitals: Resp Pulse Ox 25 H 98 05/04/18 10:02 05/04/18 10:02 Course - Re-evaluation Re-evalutation: 05/04/18 11:24 Vitals reviewed. Nursing notes reviewed. Patient is wheezy and given aerosols in the emergency room. 05/04/18 13:06 Patient reevaluated and had been completely comfortable on room air since my initial evaluation until right before I reentered the room. Patient is now sitting up in bed appears very anxious and is tearful. He states he feels like crying but he does not know why. He states he has had panic attacks in the past however after his panic attack he had a stroke. He now states he is worried that he may be having a stroke. He is now stating that he has some pain on his right lower back that is alternating with numbness. He denies any headache, vision changes, extremity weakness. His NIH currently is 0. CT scan will be ordered at patient's request because of his concern for stroke. He will be given Ativan for apparent panic attack. He is on the monitor with no telemetry changes. Repeat EKG will be ordered. Patient's lab work shows baseline renal insufficiency. He does have an elevated BNP which is also at his baseline. Chest x-ray shows no fluid overload. His troponin is negative and he has had no complaint of chest pain, I do not suspect ACS. Patient will continue to be monitored 05/04/18 14:29 Patient reevaluated and has returned to baseline. He is in no respiratory distress. His episode of tachypnea lasted only a few minutes and completely resolved with the Ativan. And he appeared to be having a panic attack. He does have significant risk factors for underlying cardiac disease however he has not had any chest pain and I still do not suspect ACS. He is not in acute heart failure with exacerbation and pulmonary edema. His breathing is now normal on room air. Patient will follow tomorrow or the next day with his primary care doctor for close reevaluation. I did tell him if his symptoms return or worsen that he should return to the emergency room for reevaluation because of his risk factors. His CT scan that he requested showed chronic changes because of his stroke with no acute changes. He has not had any focal neurologic deficits or complaints of headache and I do not suspect another stroke. He will be discharged home in stable condition with close outpatient follow-up. Laboratory 05/04/18 05/04/18 05/04/18 10:10 10:10 10:10 WBC 8.2 RBC 4.81 Hgb 12.8 L Hct 38.3 MCV 80 MCH 26.5 L MCHC 33.3 RDW 14.9 H Plt Count 287 Seg Neutrophils % 71.5 Lymphocytes % 17.4 Monocytes % 8.0 Eosinophils % 2.7 Basophils % 0.4 Absolute Neutrophils 5.8 Absolute Lymphocytes 1.4 Absolute Monocytes 0.7 Absolute Eosinophils 0.2 Absolute Basophils 0.0 Sodium 141.9 Potassium 4.5 Chloride 107 Carbon Dioxide 27 Anion Gap 8 BUN 52 H Creatinine 2.11 H Est GFR ( Amer) 39 L Est GFR (Non-Af Amer) 32 L Glucose 234 H Calcium 9.5 Total Bilirubin 0.4 Direct Bilirubin 0.2 Neonat Total Bilirubin Not Reportable Neonat Direct Bilirubin Not Reportable Neonat Indirect Bili Not Reportable AST 26 ALT 29 Alkaline Phosphatase 133 H Creatine Kinase 187 H CK-MB (CK-2) 4.58 H Troponin I 0.078 NT-Pro-B Natriuret Pep Total Protein 6.7 Albumin 4.3 Urine Color Urine Appearance Urine pH Ur Specific [place] Urine Protein Urine Glucose (UA) Urine Ketones Urine Blood Urine Nitrite Urine Bilirubin Urine Urobilinogen Ur Leukocyte Esterase Urine WBC (Auto) Urine RBC (Auto) U Hyaline Cast (Auto) Urine Mucus (Auto) Urine Ascorbic Acid 05/04/18 05/04/18 10:10 11:00 WBC RBC Hgb Hct MCV MCH MCHC RDW Plt Count Seg Neutrophils % Lymphocytes % Monocytes % Eosinophils % Basophils % Absolute Neutrophils Absolute Lymphocytes Absolute Monocytes Absolute Eosinophils Absolute Basophils Sodium Potassium Chloride Carbon Dioxide Anion Gap BUN Creatinine Est GFR ( Amer) Est GFR (Non-Af Amer) Glucose Calcium Total Bilirubin Direct Bilirubin Neonat Total Bilirubin Neonat Direct Bilirubin Neonat Indirect Bili AST ALT Alkaline Phosphatase Creatine Kinase CK-MB (CK-2) Troponin I NT-Pro-B Natriuret Pep 1530 H Total Protein Albumin Urine Color STRAW Urine Appearance CLEAR Urine pH 5.0 Ur Specific [place] 1.008 Urine Protein NEGATIVE Urine Glucose (UA) >=500 H Urine Ketones NEGATIVE Urine Blood NEGATIVE Urine Nitrite NEGATIVE Urine Bilirubin NEGATIVE Urine Urobilinogen NEGATIVE Ur Leukocyte Esterase NEGATIVE Urine WBC (Auto) 1 Urine RBC (Auto) 0 U Hyaline Cast (Auto) 1 Urine Mucus (Auto) RARE Urine Ascorbic Acid NEGATIVE Chest X-Ray 05/04/18 10:02 IMPRESSION: NO ACUTE RADIOGRAPHIC FINDING IN THE CHEST. Head CT 05/04/18 13:05 IMPRESSION: No acute intracranial pathology. Redemonstrated left occipital parietal encephalomalacia. MRI may be used to more sensitively evaluate for acute diffusion restricting infarction if desired. EVIDENCE OF ACUTE STROKE: NO. - Vital Signs Vital signs: Temp Pulse Resp BP Pulse Ox 98.2 F 74 22 H 122/97 H 99 05/04/18 10:09 05/04/18 10:09 05/04/18 11:14 05/04/18 11:14 05/04/18 11:14 - Laboratory Result Diagrams: 05/04/18 10:10 05/04/18 10:10 Laboratory results interpreted by me: 05/04/18 05/04/18 05/04/18 10:10 10:10 10:10 Hgb 12.8 L MCH 26.5 L RDW 14.9 H BUN 52 H Creatinine 2.11 H Est GFR ( Amer) 39 L Est GFR (Non-Af Amer) 32 L Glucose 234 H Alkaline Phosphatase 133 H Creatine Kinase 187 H CK-MB (CK-2) 4.58 H NT-Pro-B Natriuret Pep Urine Glucose (UA) 05/04/18 05/04/18 10:10 11:00 Hgb MCH RDW BUN Creatinine Est GFR ( Amer) Est GFR (Non-Af Amer) Glucose Alkaline Phosphatase Creatine Kinase CK-MB (CK-2) NT-Pro-B Natriuret Pep 1530 H Urine Glucose (UA) >=500 H - EKG Interpretation by Me Additional EKG results interpreted by me: 05/04/18 11:25 Interpreted by myself 04/18/2005: Atrially paced rhythm, rate 60, normal axis, resolution of Q waves lead III and aVF compared to 03/18/18 05/04/18 13:15 Interpreted by myself [id number]: Atrially paced, rate 64, normal axis, unchanged from initial, no STEMI Discharge - Discharge Clinical Impression: Shortness of breath, Peripheral edema Condition: Stable Disposition: HOME, SELF-CARE Instructions: Panic Attack ([facility]), Dyspnea, Nonspecific ([facility]) Additional Instructions: Please return to the emergency department if you have any worsening, or concern of your symptoms. Please return to the emergency department if you develop chest pain, difficulty breathing, severe abdominal pain, or ongoing vomiting. Please follow-up with your primary care physician in 1-2 days and any other recommended physicians. If prescribed, take all medications as directed. If you have any questions or concerns do not hesitate to return the emergency department for evaluation. The symptoms he experienced today are suggestive of a panic attack. You have significant risk factors for heart and lung disease and if your symptoms return, worsen, or do not resolve after a few minutes he should return to the emergency room for close reevaluation. Referrals: GERMAIN RIDDLE MD [Primary Care Provider] - Follow up tomorrow
[2018-05-04 11:30] LABS: APPEARANCE,URINE CLEAR; BILIRUBIN,URINE NEGATIVE (NEGATIVE); COLOR,URINE STRAW; GLUCOSE, URINE >=500 mg/dL (NEGATIVE); KETONES,URINE NEGATIVE (NEGATIVE); LEUKOCYTE ESTERASE,URINE NEGATIVE (NEGATIVE); NITRITE,URINE NEGATIVE (NEGATIVE); PROTEIN,URINE NEGATIVE (NEGATIVE); URINE SPECIFIC GRAVITY 1.008; UROBILINOGEN,URINE NEGATIVE mg/dL (<2.0)
[2018-05-04] MEDS ORDERED: LORAZEPAM 1 MG TABLET ONE (13:02)
--- NOTE | 2018-05-04 13:53 | RADIOLOGY REPORT (SQ) ---
EXAM DESCRIPTION: CT HEAD WITHOUT COMPLETED DATE/TIME: 05/04/2018 1:41 pm REASON FOR STUDY: numbness COMPARISON: CT brain, 08/04/2014 TECHNIQUE: Axial images acquired through the brain without intravenous contrast. Images reviewed wi th bone, brain and subdural windows. Additional sagittal and coronal reconstructions were generated. Images stored on PACS. All CT scanners at this facility use dose modulation, iterative reconstruction, and/or weight based d osing when appropriate to reduce radiation dose to as low as reasonably achievable (ALARA). [facility]: Dose Right [facility]: CareDose [facility]: Dose Right [facility]: Teradose 4D [facility]: [employer] RADIATION DOSE: CT Rad equipment meets quality standard of care and radiation dose reduction techniq ues were employed. CTDIvol: 53.2 mGy. DLP: 1070 mGy-cm. mGy. LIMITATIONS: None. FINDINGS: VENTRICLES: Normal size and contour. CEREBRUM: No masses. No hemorrhage. No midline shift. No evidence for acute infarction. Redemonstr ated left occipital and parietal encephalomalacia. CEREBELLUM: No masses. No hemorrhage. No alteration of density. No evidence for acute infarction. EXTRAAXIAL SPACES: No fluid collections. No masses. ORBITS AND GLOBE: No intra- or extraconal masses. Normal contour of globe without masses. CALVARIUM: No fracture. PARANASAL SINUSES: No fluid or mucosal thickening. SOFT TISSUES: No mass or hematoma. OTHER: No other significant finding. IMPRESSION: No acute intracranial pathology. Redemonstrated left occipital parietal encephalomalaci a. MRI may be used to more sensitively evaluate for acute diffusion restricting infarction if desire d. EVIDENCE OF ACUTE STROKE: NO. COMMENT: Quality ID # 436: Final reports with documentation of one or more dose reduction techniques (e.g., Automated exposure control, adjustment of the mA and/or kV according to patient size, use of iterative reconstruction technique) TECHNICAL DOCUMENTATION: JOB ID: [id number] [employer]- All Rights Reserved Reading location - IP/workstation name: [email or web address]
[2018-05-04 15:05] VITALS: BP 146/72
--- NOTE | 2018-05-04 23:03 | EKG REPORT ---
SEVERITY:- ABNORMAL ECG - SINUS RHYTHM VENTRICULAR PREMATURE COMPLEX NONSPECIFIC INTRAVENTRICULAR CONDUCTION DELAY CONSIDER ANTERIOR INFARCT MINIMAL ST DEPRESSION, DIFFUSE LEADS : Confirmed by: Alvaro Gottlieb 04-May-2018 23:02:30
--- NOTE | 2018-05-04 23:03 | EKG REPORT ---
SEVERITY:- ABNORMAL ECG - ATRIAL-PACED RHYTHM NONSPECIFIC INTRAVENTRICULAR CONDUCTION DELAY CONSIDER ANTEROSEPTAL INFARCT MINIMAL ST DEPRESSION, LATERAL LEADS : Confirmed by: Alvaro Gottlieb 04-May-2018 23:02:57
== END 2018-05-04 15:05 | disposition home or self-care (01) ==
LOC: ER 09:59
DX: R06.02 Shortness of breath (principal); R60.9 Edema, unspecified; R53.1 Weakness; I48.91 Unspecified atrial fibrillation; I50.9 Heart failure, unspecified; I11.0 Hypertensive heart disease with heart failure; E11.9 Type 2 diabetes mellitus without complications; E78.00 Pure hypercholesterolemia, unspecified; I25.2 Old myocardial infarction; Z89.611 Acquired absence of right leg above knee; Z95.1 Presence of aortocoronary bypass graft; Z88.0 Allergy status to penicillin; Z88.6 Allergy status to analgesic agent; Z86.73 Personal history of transient ischemic attack (TIA), and cerebral infarction without residual deficits; Z90.49 Acquired absence of other specified parts of digestive tract
CPT/HCPCS: 93005; 94640; 99285; 36415; 82553; 82550; 85025; 80053; 81001; 84484; 83880; 71045; 70450; 93010; J7620

== ENCOUNTER 2018-08-10 19:51 | Emergency (ER) | payer MEDICAID ==
[2018-08-10 20:20] VITALS: BP 162/88
== END 2018-08-10 23:48 | disposition left against medical advice (07) ==
LOC: ER 19:51
DX: Z53.21 Procedure and treatment not carried out due to patient leaving prior to being seen by health care provider (principal)

== ENCOUNTER 2019-01-23 02:49 | Emergency (ER) | payer MEDICAID ==
[2019-01-23 02:58] VITALS: BP 168/77
[2019-01-23 03:20] LABS: ABSOLUTE BASOPHILS # (AUTO) 0.1 10^3/uL (0.0-0.2); ABSOLUTE EOSINOPHILS # (AUTO) 0.4 10^3/uL (0.0-0.6); ABSOLUTE LYMPHOCYTES (AUTO) 1.8 10^3/uL (0.5-4.7); ABSOLUTE MONOCYTES (AUTO) 0.7 10^3/uL (0.1-1.4); ABSOLUTE NEUT (AUTO) 6.7 10^3/uL (1.7-8.2); BASOPHILS % (AUTO) 0.6 % (0-2); HEMATOCRIT 36.3 % (37.9-51.0); HEMOGLOBIN 11.9 g/dL (13.5-17.0); LYMPHOCYTES % (AUTO) 18.5 % (13-45); MEAN CORPUSCULAR HEMOGLOBIN 26.3 pg (27.0-33.4); MEAN CORPUSCULAR HGB CONC 32.8 g/dL (32.0-36.0); MEAN CORPUSCULAR VOLUME 80 fl (80-97); MONOCYTES % (AUTO) 6.8 % (3-13); PLATELET COUNT 272 10^3/uL (150-450); RED BLOOD COUNT 4.53 10^6/uL (4.35-5.55); RED CELL DISTRIBUTION WIDTH 15.8 % (11.5-14.0); SEGMENTED NEUTROPHILS % (AUTO) 70.1 % (42-78); TOTAL CELLS COUNTED % (AUTO) 100 %; WHITE BLOOD COUNT 9.6 10^3/uL (4.0-10.5)
[2019-01-23 03:43] LABS: ALBUMIN 3.8 g/dL (3.5-5.0); ALKALINE PHOSPHATASE 120 U/L (38-126); ANION GAP 8 (5-19); ASPARTATE AMINO TRANSFERASE 21 U/L (17-59); BILIRUBIN,DIRECT 0.1 mg/dL (0.0-0.4); BILIRUBIN,TOTAL 0.4 mg/dL (0.2-1.3); BLOOD UREA NITROGEN 64 mg/dL (7-20); CALCIUM 9.4 mg/dL (8.4-10.2); CARBON DIOXIDE 29 mmol/L (22-30); CHLORIDE 105 mmol/L (98-107); GLUCOSE 230 mg/dL (75-110); POTASSIUM 4.4 mmol/L (3.6-5.0); TOTAL PROTEIN 6.6 g/dL (6.3-8.2)
[2019-01-23 03:47] LABS: APPEARANCE,URINE SLIGHTLY-CLOUDY; BILIRUBIN,URINE NEGATIVE (NEGATIVE); COLOR,URINE YELLOW; GLUCOSE, URINE >=500 mg/dL (NEGATIVE); KETONES,URINE NEGATIVE (NEGATIVE); LEUKOCYTE ESTERASE,URINE NEGATIVE (NEGATIVE); NITRITE,URINE NEGATIVE (NEGATIVE); PROTEIN,URINE 30 mg/dL (NEGATIVE); URINE SPECIFIC GRAVITY 1.012; UROBILINOGEN,URINE NEGATIVE mg/dL (<2.0)
--- NOTE | 2019-01-23 08:38 | ER Document Report ---
Doctor's Note Notes: 01/23/19 08:35 I went in the room to evaluate the patient. He was sleeping comfortably. I introduced myself, and the patient started screaming. He was moaning, stating he was in terrible pain. I asked him what hurt. He would not respond. He just continued to moan. I asked him again, trying to assist him in sitting up. The patient stated to me that I "had an attitude." He started screaming at me. I explained to the patient that I would be happy to evaluate him, but I would need him to tell me what was happening with his symptoms. He continued to scream at me. I told him I would come back when he was less verbally abusive. Approximately 4 minutes later, I was approached by nursing, and the patient stated that he planned to leave AGAINST MEDICAL ADVICE and go to the clinic. I did not interview nor examine this patient. I did review his lab work, which was largely unremarkable for any acute process with the exception of hyperglycemia, which was not out of the norm for him. He also has chronic renal insufficiency, again not particularly abnormal at this time.
== END 2019-01-23 08:34 | disposition left against medical advice (07) ==
LOC: ER 02:49
DX: R52 Pain, unspecified (principal); R73.9 Hyperglycemia, unspecified; Z53.20 Procedure and treatment not carried out because of patient's decision for unspecified reasons
CPT/HCPCS: 36415; 80053; 81001; 83690; 85025; 99281

== ENCOUNTER 2019-05-01 09:45 | Day surgery (SDC) | payer MEDICAID ==
[~2019-05-01 09:45] MED LIST changes: +BESIFLOXACIN HCL 0.6% OPH SUSP 5 ML BOTTLE OD PRN; +BUPIVACAINE HCL 0.75% INJ/PF (7.5 MG/1 ML) 10 ML SDV OD PRN; +CHONDR SU A NA/HYALUR INTRAOC KIT (SURGICARE) ONE; +CYCLOPENTOLATE 0.2%/PHENYLEPHRINE 1% OPH SOLN 2 ML OD PRN; +DORZOLAMIDE HCL 2%/TIMOLOL MALEAT 0.5% OPH SOLN 10 ML OD PRN; +EPINEPHRINE INJ/PF 1 MG/1 ML AMPULE ONE; -GLYCOPYRROLATE INJ 0.4 MG/2 ML VIAL ONE; +KETOROLAC TROMETHAMINE 0.45% 4 DROP/0.4 ML DROPERETTE OD PRN; +LIDOCAINE 1% INJ-PF (10 MG/ML) 30 ML SDV ONE; +LIDOCAINE 4% INJ/PF (40 MG/ML) 5 ML AMPUL OD PRN; -NEOSTIGMINE METHYLSULFATE 10 MG/10 ML VIAL ONE; -ROCURONIUM BROMIDE INJ 50 MG/5 ML VIAL IV ONE; -SUCCINYLCHOLINE CHLORIDE INJ 200 MG/10 ML VIAL ONE; +TETRACAINE HCL 0.5% OPH SOLN 4 ML OD PRN; +TROPICAMIDE 1% OPH SOLN 15 ML OD PRN
[2019-05-01] MEDS ORDERED: MIDAZOLAM 2 MG/2 ML INJ ONE (10:49)
== END 2019-05-01 11:10 | disposition home or self-care (01) ==
LOC: SC 09:45
PROVIDERS: ATTEND Ophthalmology
DX: H25.89 Other age-related cataract (principal); I11.9 Hypertensive heart disease without heart failure; E11.3293 Type 2 diabetes mellitus with mild nonproliferative diabetic retinopathy without macular edema, bilateral; Z87.891 Personal history of nicotine dependence; Z88.5 Allergy status to narcotic agent; Z86.73 Personal history of transient ischemic attack (TIA), and cerebral infarction without residual deficits; Z79.899 Other long term (current) drug therapy; H53.451 Other localized visual field defect, right eye; Z96.1 Presence of intraocular lens; H43.813 Vitreous degeneration, bilateral; H26.492 Other secondary cataract, left eye
CPT/HCPCS: J0171; J2250; J3490

== ENCOUNTER 2019-05-15 06:44 | Day surgery (SDC) | payer MEDICAID ==
[~2019-05-15 06:44] MED LIST changes: -BESIFLOXACIN HCL 0.6% OPH SUSP 5 ML BOTTLE OD PRN; -CHONDR SU A NA/HYALUR INTRAOC KIT (SURGICARE) ONE; -CYCLOPENTOLATE 0.2%/PHENYLEPHRINE 1% OPH SOLN 2 ML OD PRN; -DORZOLAMIDE HCL 2%/TIMOLOL MALEAT 0.5% OPH SOLN 10 ML OD PRN; -EPINEPHRINE INJ/PF 1 MG/1 ML AMPULE ONE; -LIDOCAINE 1% INJ-PF (10 MG/ML) 30 ML SDV ONE; -TETRACAINE HCL 0.5% OPH SOLN 4 ML OD PRN; -TROPICAMIDE 1% OPH SOLN 15 ML OD PRN
[2019-05-15] MEDS: BESIFLOXACIN HCL 0.6% OPH SUSP 5 ML BOTTLE OD PRN ×4 (07:03→08:24)
[2019-05-15] MEDS: TROPICAMIDE 1% OPH SOLN 15 ML OD PRN ×3 (07:03→07:23)
[2019-05-15] MEDS: CYCLOPENTOLATE 0.2%/PHENYLEPHRINE 1% OPH SOLN 2 ML OD PRN ×3 (07:03→07:23)
[2019-05-15] MEDS: TETRACAINE HCL 0.5% OPH SOLN 4 ML OD PRN ×4 (07:04→08:01)
[2019-05-15] MEDS ORDERED: FENTANYL CITRATE INJ/PF 100 MCG/2 ML AMPUL ONE (07:30)
[2019-05-15] MEDS ORDERED: MIDAZOLAM 2 MG/2 ML INJ ONE (07:30)
[2019-05-15] MEDS ORDERED: TRYPAN BLUE 0.06 % OPH SOLN 0.5 ML DISP.SYRIN ONE (07:36)
[2019-05-15] MEDS: CHONDR SU A NA/HYALUR INTRAOC KIT (SURGICARE) ONE ×2 (08:12)
[2019-05-15] MEDS: LIDOCAINE 1% INJ-PF (10 MG/ML) 30 ML SDV ONE ×2 (08:12)
[2019-05-15] MEDS: EPINEPHRINE INJ/PF 1 MG/1 ML AMPULE ONE ×2 (08:12)
[2019-05-15] MEDS: DORZOLAMIDE HCL 2%/TIMOLOL MALEAT 0.5% OPH SOLN 10 ML OD PRN ×2 (08:24)
--- NOTE | 2019-05-15 09:48 | Operative Report ---
Operative Report-[facility] Operative Report: DATE OF SURGERY: 05/15/2019 PREOPERATIVE DIAGNOSIS: CATARACT, RIGHT EYE. POSTOPERATIVE DIAGNOSIS: CATARACT, RIGHT EYE. PROCEDURE PERFORMED: PHACOEMULSIFICATION WITH POSTERIOR CHAMBER INTRAOCULAR LENS, RIGHT EYE. Intraocular Lens Model : ZCBOO 21.0 Total Phaco Time: 39.5 total phaco time SURGEON: SANDRA THOMAS MD ANESTHESIA: TOPICAL WITH MAC. INDICATIONS FOR SURGERY: Difficulty reading road signs and TV. PROCEDURE: The patient was brought to the Operating Room and placed on the operative table. Following tetracaine drops, topical anesthesia was administered. This consisted of instrument wipe pledgets soaked in a solution of 4% Xylocaine mixed with 0.75% Marcaine in a 1:2 ratio. A 2 x 1 cm pledget was placed in the superior fornix. A 1 x 1 cm pledget was placed in the inferior fornix. The eye was patched shut for 5 minutes. The patch was removed. The eye was sterilely prepped and draped in the usual manner. Lid speculum was placed in the eye. The pledgets were removed. 4-0 black silk sutures were placed around the superior and the inferior rectus muscles to be used as traction. A conjunctival peritomy was made at the 10 o'clock position. Hemostasis was obtained with bipolar cautery. A posterior limbal groove was created using a crescent knife and dissected anteriorly towards the cornea. A sharp point blade was used to create a paracentesis site at the 2 o'clock position. 0.2 cc non preserved Lidocaine was injected into the anterior chamber. A 2.4 mm keratome was used to enter the anterior chamber through the groove. Viscoelastic was injected into the anterior chamber. An anterior capsulotomy was performed using Utrata forceps in a capsulorrhexis fashion. Hydrodissection and hydrodelineation were performed. Phacoemulsification was performed in [id number] technique. Following this, the I/A unit was used to remove residual cortex. Viscoelastic was injected into the capsular bag. The Intraocular lens was placed in the capsular bag. The I/A unit was used to remove residual viscoelastic. The wound was seen to be watertight under high and low pressure, and no sutures were placed. The intraocular lens was well centered. The pressure was adjusted in the eye to normal pressure. The 4-0 black silk sutures and lid speculum were removed. The eye was shielded after Besivance. prednisolone, and Cosopt drops were placed. The patient tolerated the procedure well and was sent to the Recovery Room in good condition.
== END 2019-05-15 09:02 | disposition home or self-care (01) ==
LOC: SC 06:44
PROVIDERS: ATTEND Ophthalmology
DX: H25.89 Other age-related cataract (principal); I11.9 Hypertensive heart disease without heart failure; E11.3293 Type 2 diabetes mellitus with mild nonproliferative diabetic retinopathy without macular edema, bilateral; Z86.73 Personal history of transient ischemic attack (TIA), and cerebral infarction without residual deficits; Z88.5 Allergy status to narcotic agent; Z87.891 Personal history of nicotine dependence; Z79.899 Other long term (current) drug therapy; Z79.02 Long term (current) use of antithrombotics/antiplatelets; H53.451 Other localized visual field defect, right eye; Z96.1 Presence of intraocular lens; H43.813 Vitreous degeneration, bilateral; H26.492 Other secondary cataract, left eye; Z79.4 Long term (current) use of insulin; Z88.0 Allergy status to penicillin
CPT/HCPCS: 66984; 82962; V2632; J2250; J3490 ×6; J0171; J3010